=== PATIENT | female | born 1940 | race Caucasian/White ===

== ENCOUNTER 2020-01-12 10:27 | Inpatient (IN) | payer MEDICARE, OTHER ==
[~2020-01-12] VITALS: Ht 165.1 cm; Wt 48.4 kg
[2020-01-12] MEDS ORDERED: DONE5TAB82 PO (10:56)
[2020-01-12] MEDS ORDERED: VITA1CAP25 PO (10:56)
[2020-01-12] MEDS ORDERED: ALPR0.25 PO (10:56)
[2020-01-12 12:53] LABS: HEMATOCRIT 42.5 % (36.0-47.0); HEMOGLOBIN 14.1 g/dl (12.0-15.5); MEAN CORPUSCULAR HEMOGLOBIN 31.4 pg (27.0-33.0); MEAN CORPUSCULAR HGB CONC 33.2 g/dl (32.0-36.5); MEAN CORPUSCULAR VOLUME 94.7 fl (80.0-96.0); PLATELET COUNT, AUTOMATED 207 10^3/uL (150-450); RED BLOOD COUNT 4.49 10^6/uL (4.00-5.40)
[2020-01-12 13:19] LABS: AMPHETAMINES LEVEL URINE NEGATIVE (NEGATIVE); BARBITURATES URINE NEGATIVE (NEGATIVE); BENZODIAZEPINES URINE POSITIVE (NEGATIVE); CANNABINOIDS URINE NEGATIVE (NEGATIVE); COCAINE METABOLITE URINE NEGATIVE (NEGATIVE); METHADONE URINE NEGATIVE (NEGATIVE); OPIATES URINE NEGATIVE (NEGATIVE); PHENCYCLIDINE URINE NEGATIVE (NEGATIVE)
[2020-01-12 13:24] LABS: CPK CREATINE PHOSPHOKINASE 116 U/L (26-192); MB/CK RELATIVE INDEX 1.72 (< OR =4); TROPONIN I < 0.02 NG/ML (< 0.10)
[2020-01-12 13:29] LABS: ACETAMINOPHEN LEVEL < 2.0 UG/ML (10.0-30.0); ALBUMIN 3.8 GM/DL (3.2-5.2); ALT/SGPT 17 U/L (12-78); BILIRUBIN,DIRECT 0.3 MG/DL (0.0-0.2); BILIRUBIN,TOTAL 0.8 MG/DL (0.2-1.0); BLOOD UREA NITROGEN 15 MG/DL (7-18); CARBON DIOXIDE LEVEL 29 MEQ/L (21-32); CHLORIDE LEVEL 110 MEQ/L (98-107); CREATININE FOR GFR 0.69 MG/DL (0.55-1.30); ETHYL ALCOHOL (ETHANOL) < 0.003 % (0.000-0.010); GLOMERULAR FILTRATION RATE > 60.0 (>39); GLUCOSE, FASTING 116 MG/DL (70-100); POTASSIUM SERUM 4.6 MEQ/L (3.5-5.1); SALICYLATE LEVEL < 1.7 MG/DL (5.0-30.0); SODIUM LEVEL 142 MEQ/L (136-145); TOTAL PROTEIN 6.9 GM/DL (6.4-8.2)
--- NOTE | 2020-01-12 15:03 | REP ---
REASON FOR EXAM: Altered mental status. There are no priors for comparison. There is ventricular and particularly sulcal dilatation. There are no extra-axial fluid collections. There is no shift of the midline structures. There is no evidence of acute intracranial hemorrhagic or nonhemorrhagic event. There is no skull fracture. The imaged paranasal sinuses and mastoid air cells are within normal limits. IMPRESSION: Diffuse atrophy. Electronically Signed by Hansel Malagon DO 01/12/2020 04:39 P
[2020-01-12] MEDS ORDERED: PATIENT COMMENT (16:41)
--- NOTE | 2020-01-12 16:44 | ECGEPIP ---
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
[2020-01-12] MEDS ORDERED: ALPRAZolam 0.25 MG TAB PO PRN (17:45)
[2020-01-12 20:30] VITALS: BP 155/87
--- NOTE | 2020-01-12 20:43 | MHCRPDOC ---
[facility] Consultation Consultation DATE OF CONSULTATION: 01/12/20 CONSULTATION REQUESTED BY: Hospitalist consumer safety inspector REASON FOR CONSULTATION: Patient expressed suicidal and homicidal ideation to spouse RELEVANT HISTORY: As per ED report: "Pt was brought the ED by [facility](Cammy Greeen # [id number]) on a 9.41 after she expressed SI and HI(directed towards spouse) due to "God telling her to do it." Pt has no pervious mental health hx, however does have a significant hx of Alzheimer's. Pt is alert, but not oriented x3. She currently denies SI and HI, appears confused during evaluation. Spoke to marivel calixto's daughter(Yue, [phone]) who believes pt is displaying symptoms of Schizophrenia "just like her Brother." Yesterday, pt was aggressive towards whom she lives with, but daughter stays with them frequently. Today, daughter suspects pt is internally pre-occupied, suffering from command AH from "God" telling her to kill & to kill herself. Apparently, pt stated, "God told me he will forgive me." Family is concerned due to pt wandering and her homicidal/suicidal threats and feels she requires a mental health admission and suspects her symptoms are due to her dementia. 01/12/20-[address] Negrete who feels pt is not appropriate for a mental health admission and suspects it is due to her dementia. Social admission was discussed, awaiting family's arrival to sign HINN letter" PAST PSYCHIATRIC HISTORY: Denies PAST MEDICAL HISTORY: "Oh I've had a couple of surgeries, here and there but nothing too serious". Patient has been diagnosed with Alzheimer's FAMILY HISTORY: Mother: . Unknown cause Father: As above Siblings: She says she has brothers and siters and altogetehr they were 7 growing up in the same house but previously she had said they were 5 siblins altogether. Children: She says she has 3 children, she says her daughter is 22 years old and her 2 sons who are older are around 28 yers of age PERSONAL AND SOCIAL HISTORY: The patient was born and raised in [place]. Resides in: [place] Marital Status: M Children: 3, according to her Employment: Unemployed SUBSTANCE ABUSE HISTORY: Smoking: Denies ETOH: Denies Illicit Drugs: Denies LEGAL HISTORY: Denies MENTAL STATUS EXAMINATION: Patient is a 79-year old female, who is alert, cooperative, dressed in hospital clothes. Speech is normal in rate, tone, volume, spontaneous although not really fluent. Language skills fair. Thought processes including: it is linear but not necessarily coherent. Confabulation, she has thought blocking.. Thought content: She denies SI, denies HI, but admits to hear God's voice that tells her that she is wonderful, that she is the best human being that he has ever talked to, that he is very thankful to her because she expressed being thankful to HIm. She says she has seen God and he is light skinned like she is, he is tall and slender and he really cares about human beings. She says she would never kill herself or others, she would never be able to those things. Abstract reasoning, and computation: Impaired Description of associations: mildly loose Description of abnormal or psychotic thoughts: She reports aditory and visual hallucinations, she says God has talked to her twice since she has been at the Emergency Room. Those are not command auditory hallucinations, he is only telli ng her that she is a wonderful person. Judgment: Poor Insight: Poor Orientation to person ( oriented to self), oriented to place but not to date or time Recent and remote memory: She can't recall the 3 words ( orange, ball and [place] 5 minutes later). She could repeat them just after I mentioned them. Attention span and concentration: Fair, she was able to follow the conversation w/o being distracted Language: adequate Fund of knowledge: unable to assess, patient's memory is impaired Mood: "Good" Affect: Congruent with mood, euthymic DIAGNOSIS: 1. Neurocognitive disorder, Alzheimer's PLAN: 1. Patient has a neurological problem, she already has a diagnosis of Alzheimer's disease. She will be admitted to the medical floor as a Social Admission 2. She will be started on Seroquel 12.5 mgs PO BID to help her with the hallucinations that she is experiencing which is part of the dementia. The patient could be stabilized a t the medical floor and continue with Quetiapine ( Seroquel). She will need a Neurology consult and her family will need support in order to understand how this illness presents and affects people. She doesn't fulfill criteria to be [facility] because she i\\doesn't fulfill criteria for schizophrenia or delusional disorder. She doesn't fulfill criteria for Depression with psychosis or bipolar disorder. Vital Signs Vital Signs Date Time Temp Pulse Resp B/P (MAP) Pulse Ox O2 Delivery O2 Flow Rate FiO2 01/12/20 18:46 97.5 96 18 168/79 (108) 99 Room Air Laboratory Data 24H Labs Laboratory Tests 2 01/12/20 12:26: Nucleated Red Blood Cells % (auto) 0.0, Anion Gap 3L, Glomerular Filtration Rate > 60.0, Calcium Level 10.0, Total Bilirubin 0.8, Direct Bilirubin 0.3H, Aspa rtate Amino Transf (AST/SGOT) 19, Alanine Aminotransferase (ALT/SGPT) 17, Alkaline Phosphatase 73, Total Creatine Kinase 116, Creatine Kinase MB 2.0, Creatine Kinase MB Relative Index 1.72, Troponin I < 0.02, Total Protein 6.9, Albumin 3.8, Albumin/Globulin Ratio 1.2, Thyroid Stimulating Hormone (TSH) 1.930, Salicylates Level < 1.7L, Acetaminophen Level < 2.0L, Ethyl Alcohol Level < 0.003 01/12/20 12:29: Urine Color YELLOW, Urine Appearance CLOUDYH, Urine pH 6.0, Urine Specific [place] 1.019, Urine Protein NEGATIVE, Urine Glucose (UA) NEGATIVE, Urine Ketones TRACEH, Urine Blood NEGATIVE, Urine Nitrite NEGATIVE, Urine Bilirubin NEGATIVE, Urine Urobilinogen 2.0H, Urine Leukocyte Esterase 3+H, Urine WBC (Auto) 11H, Urine RBC (Auto) 2, Urine Hyaline Casts (Auto) 0, Urine Bacteria (Auto) NEGATIVE, Urine Squamous Epithelial Cells 1, Urine Amorphous Sediment SMALLH, Urine Mucus (Auto) MODERATE, Urine Sperm (Auto) , Urine Opiates Screen NEGATIVE, Urine Methadone Screen NEGATIVE, Urine Barbiturates Screen NEGATIVE, Urine Phencyclidine Screen NEGATIVE, Urine Amphetamines Screen NEGATIVE, Urine Benzodiazepines Screen POSITIVEH, Urine Cocaine Metabolite Screen NEGATIVE, Urine Cannabinoids Screen NEGATIVE Home Medications Current Medications Current Medications Medications (Trade) Dose Ordered Sig/Joanna Route PRN Reason Start Time Stop Time Status Last Admin Dose Admin Alprazolam (Xanax) 0.25 mg BID PRN PO ANXIETY/AGITATION 01/12/20 17:45 Donepezil HCl (AriCEPT) 5 mg DAILY PO 01/13/20 09:00 Home Med (Med Rec Complete!) ASDIRECTED XX 01/12/20 16:45 01/12/20 16:43 DC Scheduled Alprazolam (Alprazolam) 0.25 Mg Tablet, 0.25 MG PO BID, (Reported) Cholecalciferol (Vitamin D3) (Vitamin D3) 1,250 Mcg Capsule, 1,250 MCG PO QWEEK, (Reported) Donepezil HCl (Donepezil HCl) 5 Mg Tablet, 5 MG PO DAILY, (Reported) Miscellaneous Medications [Patient Comment] , (Reported) UNABLE TO VERIFY WITH PATIENT, MED LIST OBTAINED FROM PHARMACY Allergies Coded Allergies: No Known Allergies (Unverified , 01/12/20) STEFANI NEGRETE MD Jan 12, 2020 20:43
[2020-01-12] MEDS: QUEtiapine FUMARATE 12.5 MG HALF-TAB PO SCH (21:21)
--- NOTE | 2020-01-13 00:35 | HPEPDOC ---
[facility] Medical History & Physical Date of Admission Jan 12, 2020 Date of Service: Jan 12, 2020 Other Provider Doesn't have local PCP Attending Physician: MONTY RUSH DO History and Physical CHIEF COMPLAINT: Brought into the emergency department by her family due to talking about suicidal and homicidal actions HISTORY OF PRESENT ILLNESS: Ms. Jones is a 79-year-old female who suffers from dementia who apparently was just moved up here with her from [place] to live with their daughter approximately 3 weeks ago. Apparently she has been having bizarre delusions that she has been speaking to God, or rather than God has been speaking to her, and instructed her that she should take a knife and kill both her and herself, but because God was pleased with her, he would forgive her for her actions. The family, not knowing what to do brought her to the emergency department for further evaluation. CODE STATUS: Full code PAST MEDICAL HISTORY: GERD Fibromyalgia Low back pain In a note from 2002 it states that she has a past history of major depression, although at that time she was not on any anti-depressant medications. She apparently does not have any other psychiatric history. PAST SURGICAL HISTORY: Knee surgery Left arm surgery Appendectomy SOCIAL HISTORY: Just moved up from [place] a few weeks ago with her to live with their daughter. FAMILY HISTORY: No family history of psychiatric disease REVIEW OF SYSTEMS: It is unclear to me as to whether or not she can accurately identify any recent symptoms she may be having. Nevertheless, her review of systems was negative. She is feeling fine. She does not know where she is, nor why she is here. PHYSICAL EXAMINATION: General: Awake, alert, she does not appear to be in any acute distress at this time. HEENT: Head normocephalic atraumatic, conjunctiva are pink, sclera are nonicteric, buccal mucosa is pink and moist with no lesions in the oropharynx. Hearing is grossly intact to conversation. Respiratory: Clear to auscultation bilaterally with no wheezes, rales, or rhonchi. Cardiovascular: Regular rate and rhythm, with no rubs, gallops, or murmur. Abdomen: Soft, nontender, nondistended, no hepatosplenomegaly appreciated. Bowel sounds present. Extremities: 2+ pulses in the radial bilaterally. No evidence of clubbing or cyanosis. ASSESSMENT: Bizarre delusions, Perhaps command delusions Dementia Anxiety PLAN: [facility] Psychiatric consult has been requested. She is on Ativan twice a day, although this does not seem like a good idea, will await recommendations from psych regarding medications. Sitter has been ordered. A PFS consult order placed, as she will need a new local PCP, and likely will need to discuss disposition with family. Vital Signs Vital Signs Date Time Temp Pulse Resp B/P (MAP) Pulse Ox O2 Delivery O2 Flow Rate FiO2 01/12/20 18:46 97.5 96 18 168/79 (108) 99 Room Air Laboratory Data Labs 24H Laboratory Tests 2 01/12/20 12:26: Nucleated Red Blood Cells % (auto) 0.0, Anion Gap 3L, Glomerular Filtration Rate > 60.0, Calcium Level 10.0, Total Bilirubin 0.8, Direct Bilirubin 0.3H, Aspartate Amino Transf (AST/SGOT) 19, Alanine Aminotransferase (ALT/SGPT) 17, Alkaline Phosphatase 73, Total Creatine Kinase 116, Creatine Kinase MB 2.0, Creatine Kinase MB Relative Index 1.72, Troponin I < 0.02, Total Protein 6.9, Albumin 3.8, Albumin/Globulin Ratio 1.2, Thyroid Stimulating Hormone (TSH) 1.930, Salicylates Level < 1.7L, Acetaminophen Level < 2.0L, Ethyl Alcohol Level < 0.003 01/12/20 12:29: Urine Color YELLOW, Urine Appearance CLOUDYH, Urine pH 6.0, Urine Specific [place] 1.019, Urine Protein NEGATIVE, Urine Glucose (UA) NEGATIVE, Urine Ketones TRACEH, Urine Blood NEGATIVE, Urine Nitrite NEGATIVE, Urine Bilirubin NEGATIVE, Urine Urobilinogen 2.0H, Urine Leukocyte Esterase 3+H, Urine WBC (Auto) 11H, Urine RBC (Auto) 2, Urine Hyaline Casts (Auto) 0, Urine Bacteria (Auto) NEGATIVE, Urine Squamous Epithelial Cells 1, Urine Amorphous Sediment SMALLH, Urine Mucus (Auto) MODERATE, Urine Sperm (Auto) , Urine Opiates Screen NEGATIVE, Urine Methadone Screen NEGATIVE, Urine Barbiturates Screen NEGATIVE, Urine Phencyclidine Screen NEGATIVE, Urine Amphetamines Screen NEGATIVE, Urine B enzodiazepines Screen POSITIVEH, Urine Cocaine Metabolite Screen NEGATIVE, Urine Cannabinoids Screen NEGATIVE CBC/BMP Laboratory Tests 01/12/20 12:26 Microbiology Microbiology 01/12/20 Urine Culture, Received Pending Home Medications Scheduled Alprazolam (Alprazolam) 0.25 Mg Tablet, 0.25 MG PO BID Cholecalciferol (Vitamin D3) (Vitamin D3) 1,250 Mcg Capsule, 1,250 MCG PO QWEEK Donepezil HCl (Donepezil HCl) 5 Mg Tablet, 5 MG PO DAILY Miscellaneous Medications [Patient Comment] UNABLE TO VERIFY WITH PATIENT, MED LIST OBTAINED FROM PHARMACY Allergies Coded Allergies: No Known Allergies (Unverified , 01/12/20) A-FIB/CHADSVASC A-FIB History Current/History of A-Fib/PAF?: No Current PO Anticoag Therapy: MONTY Brannon DO Jan 13, 2020 00:35
[2020-01-13 06:00] VITALS: BP 108/58
[2020-01-13] MEDS: DONEPEZIL 5 MG TAB PO SCH (08:47)
[2020-01-13] MEDS: QUEtiapine FUMARATE 12.5 MG HALF-TAB PO SCH ×3 (12:35→21:16)
--- NOTE | 2020-01-13 13:48 | IPNPDOC ---
Subjective Date Seen The patient was seen on 01/13/20. Subjective Chief Complaint/HPI Pt is a 79 yo female with PMH noted for Alzheimer's disease who moved here 3 wks ago with her from [place] to live with their daughter who was brought to [facility] by [facility](Cammy Greene # [id number]) as pt was having hallucination that God was telling her to kill both her and herself. It was noted that pt has been having bizarre delusion/hallucinations that she has been instructed by God that she should take a knife and kill both her and herself, but because God was pleased with her, he would forgive her for her actions. It was noted that pt has no prior mental hx but has significant hx of Alzheimer's. Upon admission pt was noted to be alert but not orientedX3; appeared confused. denies SI and HI. It was noted that psychiatrist spoke to pt's daughter(Yue, [phone]) who believes pt is displaying symptoms of Schizophrenia "just like her Brother." Family is concerned feels pt required a mental health admission and suspects her symptoms are due to her dementia. It was noted that Dr. Son felt that pt is not appropriate for a mental health admission and suspects it is due to her dementia thus social admission was discussed Patient was examined in her room with sitter in her room. It was noted that earlier she was having some hallucination that someone is helping her to get ready to pack and no homicidal ideation/behaviors or suicidal ideation/behaviors. Pt denies any chest pain, fever, chills, nausea, vomiting, or abdominal pain. She is A&OX3, able to carry conversation. Denies having hallucination, no homicidal ideation/suicidal ideation. Pt would like to know what she is here, when explaining the thought is she has dementia, pt reported she does not think she has dementia in a calm voice Constitutional: Denies: Chills, Fever Pulmonary: Denies: Dyspnea Cardiovascular: Denies: Chest Pain, Palpitations Gastrointestinal: Denies: Nausea, Vomiting, Abdominal Pain Objective Physical Examination General Exam: Positive: Alert, Cooperative, No Acute Distress ENT Exam: Positive: Atraumatic, Mucous membr. moist/pink Chest Exam: Positive: Clear to auscultation, Normal air movement; Negative: Rales, Rhonchi, Wheezing Heart Exam: Positive: Rate Normal, Regular Rhythm, Normal S1, Normal S2; Negative: Murmurs Abdomen Exam: Positive: Normal bowel sounds, Soft; Negative: Tenderness Extremity Exam: Negative: Edema, Swelling Neuro Exam: Positive: Normal Speech (slowed), Normal Tone, Cranial Nerves 3-12 NL Psych Exam: Positive: Mood NL (calm), Memory Intact (grossly), Other (able to carry conversation, flat affect, anhedonia); Negative: Anxiety Assessment /Plan Assessment 1. Hallucination 2/2 dementia, improved. Hx of dementia. Cont current med Quetiapine initiated by psych during this hospitalization. Pt is noted to not fulfill criteria for schizophrenia , or delusional disorder, depression with psychosis, or bipolar disorder. Suicidal precaution. Cont sitter 2. Neurocognitive disorder, Alzheimer's. Cont home med Donepezil. Hold home med Ativan DVT prophylaxis: lovenox GI prophylaxis: Not indicated DISPO: hallucination with HI and SI eval by psych thought to be d/t dementia. On Donepezil, mood currently stable. Plan to discharge home w/ service when medically stable Plan/VTE VTE Prophylaxis Ordered?: Yes VS, I&O, 24H, Fishbone Vital Signs/I&O Vital Signs Date Time Temp Pulse Resp B/P (MAP) Pulse Ox O2 Delivery O2 Flow Rate FiO2 01/13/20 06:00 97.8 72 17 108/58 (75) 96 Room Air I&O- Last 24 Hours up to 6 AM 01/13/20 06:00 Intake Total 300 ml Output Total 700 ml Balance -400 ml Laboratory Data Microbiology Microbiology 01/12/20 Urine Culture - Final, Complete GME ATTESTATION I have personally evaluated and examined the patient. Discussed with resident/student regarding plan of care and agree with the above assessment and plan. LANCE THEODORE DO Jan 13, 2020 13:48 DARRIUS TERESA MD Jan 14, 2020 18:20
[2020-01-13 14:00] VITALS: BP 144/66
[2020-01-13 22:00] VITALS: BP 154/76
[2020-01-14 06:00] VITALS: BP 143/69
[2020-01-14 06:00] LABS: HEMATOCRIT 36.8 % (36.0-47.0); HEMOGLOBIN 12.3 g/dl (12.0-15.5); MEAN CORPUSCULAR HEMOGLOBIN 30.8 pg (27.0-33.0); MEAN CORPUSCULAR HGB CONC 33.4 g/dl (32.0-36.5); MEAN CORPUSCULAR VOLUME 92.2 fl (80.0-96.0); PLATELET COUNT, AUTOMATED 197 10^3/uL (150-450); RED BLOOD COUNT 3.99 10^6/uL (4.00-5.40); WHITE BLOOD COUNT 5.5 10^3/uL (4.0-10.0)
[2020-01-14 06:30] LABS: ALBUMIN 3.2 GM/DL (3.2-5.2); ALT/SGPT 14 U/L (12-78); BILIRUBIN,TOTAL 0.9 MG/DL (0.2-1.0); BLOOD UREA NITROGEN 15 MG/DL (7-18); CALCIUM LEVEL 9.2 MG/DL (8.8-10.2); CARBON DIOXIDE LEVEL 27 MEQ/L (21-32); CHLORIDE LEVEL 111 MEQ/L (98-107); CREATININE FOR GFR 0.66 MG/DL (0.55-1.30); GLOMERULAR FILTRATION RATE > 60.0 (>39); GLUCOSE, FASTING 87 MG/DL (70-100); POTASSIUM SERUM 3.7 MEQ/L (3.5-5.1); SODIUM LEVEL 145 MEQ/L (136-145); TOTAL PROTEIN 5.7 GM/DL (6.4-8.2)
[2020-01-14] MEDS: DONEPEZIL 5 MG TAB PO SCH (09:46)
[2020-01-14] MEDS: ENOXAPARIN 40MG/0.4ML SYRINGE (J1650 PER 10MG) SC SCH (09:46)
[2020-01-14] MEDS: QUEtiapine FUMARATE 12.5 MG HALF-TAB PO SCH ×2 (09:46→20:11)
[2020-01-14 14:00] VITALS: BP 138/69
--- NOTE | 2020-01-14 17:23 | IPNPDOC ---
Subjective Date Seen The patient was seen on 01/14/20. Subjective Chief Complaint/HPI It was noted that patient was having hallucinations/delusions that it was the 194s and she was still single. Patient is examined at bedside, sitter at bedside reported no hallucinations or abnormal behaviors. She denies any chest pain, palpitation, nausea, vomiting, fever, chills. She is able to answer name but is unable to answer the year and place correctly. General: Denies: Chills Constitutional: Denies: Chills, Fever Pulmonary: Denies: Dyspnea Cardiovascular: Denies: Chest Pain, Palpitations Gastrointestinal: Denies: Nausea, Vomiting, Abdominal Pain Objective Physical Examination General Exam: Positive: Alert, Cooperative, No Acute Distress ENT Exam: Positive: Atraumatic, Mucous membr. moist/pink Chest Exam: Positive: Clear to auscultation, Normal air movement; Negative: Rales, Rhonchi, Wheezing Heart Exam: Positive: Rate Normal, Regular Rhythm, Normal S1, Normal S2; Negative: Murmurs Abdomen Exam: Positive: Normal bowel sounds, Soft; Negative: Tenderness Extremity Exam: Negative: Edema, Swelling Neuro Exam: Positive: Normal Tone, Cranial Nerves 3-12 NL, Other (slowed speech) Psych Exam: Positive: Mood NL (calm), Other (able to carry conversation, flat affect. A&O to name only); Negative: Anxiety, Memory Intact, Oriented x 3 Assessment /Plan Assessment 1. Neurocognitive disorder, Alzheimer's. Admitted with hallucination with suicidal and homicidal ideations. Cont home med Donepezil. Hold home med Ativan. It was noted that pt had some hallucination thinking that she was in [id number], hallucination likely 2/2 dementia. Hx of dementia. Cont current med Quetiapine initiated by psych during this hospitalization. Pt is noted to not fulfill criteria for schizophrenia , or delusional disorder, depression with psychosis, or bipolar disorder. Suicidal precaution. Cont sitter. Pending placement. Suicidal precaution. 2. Hallucination with suicidal ideation and homicidal ideation. Pt thought God was talking to her telling her to kill family but God and herself but God will forgive her. No current hallucination noted. Suicidal precaution. DVT prophylaxis: lovenox GI prophylaxis: not indicated DISPO: Hallucination with suicidal ideation and homicidal ideation likely 2/2 dementia started on Quetiapine; cont home Donepezil and hold home med Ativan. Mood currently stable with sitter and suicidal precaution. Pending placement Plan/VTE VTE Prophylaxis Ordered?: Yes VS, I&O, 24H, Fishbone Vital Signs/I&O Vital Signs Date Time Temp Pulse Resp B/P (MAP) Pulse Ox O2 Delivery O2 Flow Rate FiO2 01/14/20 14:00 98.6 92 18 138/69 (92) 99 Room Air I&O- Last 24 Hours up to 6 AM 01/14/20 06:00 Intake Total 680 ml Output Total 400 ml Balance 280 ml Laboratory Data 24H LABS Laboratory Tests 2 01/14/20 05:29: Nucleated Red Blood Cells % (auto) 0.0, Anion Gap 7L, Glomerular Filtration Rate > 60.0, Calcium Level 9.2, Total Bilirubin 0.9, Aspartate Amino Transf (AST/SGOT) 18, Alanine Aminotransferase (ALT/SGPT) 14, Alkaline Phosphatase 64, Total Protein 5.7L, Albumin 3.2, Albumin/Globulin Ratio 1.3 CBC/BMP Laboratory Tests 01/14/20 05:29 Microbiology Microbiology 01/12/20 Urine Culture - Final, Complete GME ATTESTATION I have personally evaluated and examined the patient. Discussed with reside nt/student regarding plan of care and agree with the above assessment and plan. LANCE THEODORE DO Jan 14, 2020 17:23 DARRIUS TERESA MD Jan 23, 2020 08:32
[2020-01-14 21:00] VITALS: BP_SYST 122; BP_SYST 148; BP_DIAS 74; BP_DIAS 75
[2020-01-14 22:00] VITALS: BP 148/75
[2020-01-15 06:00] VITALS: BP 129/62
[2020-01-15] MEDS ORDERED: ATORVASTATIN 20 MG TAB PO SCH (09:00)
[2020-01-15] MEDS: DONEPEZIL 5 MG TAB PO SCH (10:19)
[2020-01-15] MEDS: ENOXAPARIN 40MG/0.4ML SYRINGE (J1650 PER 10MG) SC SCH (10:20)
[2020-01-15] MEDS: QUEtiapine FUMARATE 12.5 MG HALF-TAB PO SCH (10:20)
[2020-01-15] MEDS ORDERED: VANICREAM MOISTURIZING SKIN CREAM 113GM TUBE TOP PRN (10:30)
[2020-01-15 14:00] VITALS: BP 132/76
--- NOTE | 2020-01-15 17:28 | IPNPDOC ---
Subjective Date Seen The patient was seen on 01/15/20. Subjective Chief Complaint/HPI Patient is examined in the exam room with sitter in room. It was noted that patient was having hallucinations thinking that she was making food for her . Pt reported that she does not have any visual or auditory hallucinat ion, denies any fever, chills, chest pain, palpitation, suicidal ideation, or homicidal ideation. Pt is A&O to name and place. Later it was reported that pt was mildly agitated and said that she would like to leave the hospital. Pt reported that she has been walking well General: Denies: Chills Constitutional: Denies: Chills, Fever Pulmonary: Denies: Dyspnea Cardiovascular: Denies: Chest Pain, Palpitations Gastrointestinal: Denies: Abdominal Pain Neurological: Reports: Other Symptoms (hallucination and delusions) Psych: Reports: Memory Issues; Denies: Mood Normal Objective Physical Examination General Exam: Positive: Alert, Cooperative, No Acute Distress ENT Exam: Positive: Atraumatic, Mucous membr. moist/pink Chest Exam: Positive: Clear to auscultation, Normal air movement; Negative: Rales, Rhonchi, Wheezing Heart Exam: Positive: Rate Normal, Regular Rhythm, Normal S1, Normal S2; Negative: Murmurs Abdomen Exam: Positive: Normal bowel sounds, Soft; Negative: Tenderness Extremity Exam: Negative: Edema, Swelling Neuro Exam: Positive: Normal Speech (slowed), Normal Tone Psych Exam: Positive: Mood NL (calm at time of examination), Other (able to carry conversation, flat affect, A&O to name and place); Negative: Mental status NL, Anxiety, Memory Intact Assessment /Plan Assessment 1. Neurocognitive disorder, Alzheimer's. Admitted with hallucination with suicidal and homicidal ideations. Cont home med Donepezil. Hold home med Ativan. Hallucination likely 2/2 dementia. Hx of dementia.Pt is noted to not fulfill criteria for schizophrenia , or delusional disorder, depression with psychosis, or bipolar disorder per psych. Suicidal precaution. Cont sitter. Pending placement. Suicidal precaution. Pt continues to have hallucination as well as delusion. Increase Quetiapine dose from 12.5mg BID to 12.5mg QAM and 25mg QPM as it was noted pt was mildly agitated and reported that she is going to leave. Pending placement 2. Hallucination with suicidal ideation and homicidal ideation. Pt thought God was talking to her telling her to kill family but God and herself but God will forgive her. No current hallucination noted. Suicidal precaution. DVT prophylaxis: lovenox GI prophylaxis: not indicated DISPO: Hallucination with suicidal ideation and homicidal ideation likely 2/2 dementia; increase Quetiapine dose d/t mild agitation; cont home Donepezil and hold home med Ativan. Sitter and suicidal precaution. Pending placement. Plan/VTE VTE Prophylaxis Ordered?: Yes VS, I&O, 24H, Fishbone Vital Signs/I&O Vital Signs Date Time Temp Pulse Resp B/P (MAP) Pulse Ox O2 Delivery O2 Flow Rate FiO2 01/15/20 14:00 98.5 90 20 132/76 (94) 98 Room Air I&O- Last 24 Hours up to 6 AM 01/15/20 06:00 Intake Total 720 ml Output Total 0 ml Balance 720 ml Laboratory Data Microbiology Microbiology 01/12/20 Urine Culture - Final, Complete GME ATTESTATION I have personally evaluated and examined the patient. Discussed with resident/student regarding plan of care and agree with the above assessment and plan. LANCE THEODORE DO Jan 15, 2020 17:28 DARRIUS TERESA MD Jan 23, 2020 08:37
[2020-01-15] MEDS ORDERED: LORazepam 2 MG/ML VIAL IM STA (17:44)
[2020-01-15] MEDS ORDERED: LORazepam 2 MG/ML VIAL IM PRN (18:00)
[2020-01-15] MEDS: QUEtiapine FUMARATE 25 MG TAB PO SCH (20:05)
[2020-01-15 22:00] VITALS: BP 132/61
[2020-01-16 06:00] VITALS: BP 118/72
[2020-01-16] MEDS: ENOXAPARIN 40MG/0.4ML SYRINGE (J1650 PER 10MG) SC SCH (09:00)
[2020-01-16] MEDS: DONEPEZIL 5 MG TAB PO SCH (09:00)
[2020-01-16] MEDS: QUEtiapine FUMARATE 12.5 MG HALF-TAB PO SCH (09:00)
--- NOTE | 2020-01-16 10:58 | IPNPDOC ---
Subjective Date Seen The patient was seen on 01/16/20. Subjective Chief Complaint/HPI It was noted that patient was agitated yesterday afternoon trying to escape and ran to the elevator. She was scratching staff and it took 4 staff to put her back on the wheelchair. Ativan PRN was ordered but has not been given/needed as patient's mental status changes rapidly. Patient is having hallucination that her father and mother are waiting for her outside of the hospital, then stated her father is in the hospital. She initially denies any homicidal ideation or suicidal ideation, but 2 mins after stated that she wanted to kill her father because he took her here. She denies any chest pain, palpitation, nausea, vomiting, abdominal pain, dyspnea, stating she is upset because she needs to stay in the hospital. General: Denies: Chills Constitutional: Denies: Chills, Fever Pulmonary: Denies: Dyspnea Cardiovascular: Denies: Chest Pain, Palpitations Gastrointestinal: Denies: Nausea, Vomiting, Abdominal Pain Psych: Reports: Memory Issues, Anger, Thoughts of Harming Other, Other Psych (agitation, hallucination, and delusion); Denies: Mood Normal Objective Physical Examination General Exam: Positive: Alert, No Acute Distress; Negative: Cooperative ENT Exam: Positive: Atraumatic, Mucous membr. moist/pink Chest Exam: Positive: Clear to auscultation, Normal air movement; Negative: Rales, Rhonchi, Wheezing Heart Exam: Positive: Rate Normal, Regular Rhythm, Normal S1, Normal S2; Negative: Murmurs Abdomen Exam: Positive: Normal bowel sounds, Soft; Negative: Tenderness Extremity Exam: Negative: Edema, Swelling Neuro Exam: Positive: Normal Tone Psych Exam: Positive: Other (able to carry conversation, upset, visual hallucination and delusions); Negative: Mental status NL, Mood NL, Memory Intact Assessment /Plan Assessment 1. Neurocognitive disorder, Alzheimer's. Admitted with hallucination with suicidal and homicidal ideations. Cont home med Donepezil. Hold home med Ativan. Hallucination likely 2/2 dementia. Hx of dementia.Pt is noted to not fulfill criteria for schizophrenia , or delusional disorder, depression with psychosis, or bipolar disorder per psych. Suicidal precaution. Cont sitter. Pending placement. Suicidal precaution. Pt continues to have hallucination as well as delusion. Increase Quetiapine dose from 12.5mg BID to 12.5mg QAM and 25mg QPM as it was noted pt was mildly agitated and reported that she is going to leave. Pt had ativan ordered PRN but has not received any dose. Change Ativan PRN agitation to haloperidol. Pending placement, change to ALC status 2. Hallucination with suicidal ideation and homicidal ideation. Pt thought God was talking to her telling her to kill family but God and herself but God will forgive her. No current hallucination noted.Today reported that she wants to kill his father. Suicidal precaution. DVT prophylaxis: lovenox GI prophylaxis: not indicated DISPO: Hallucination with suicidal ideation and homicidal ideation likely 2/2 dementia; increase Quetiapine dose d/t mild agitation; cont home Donepezil. Haloperidol PRN Sitter and suicidal precaution. Pending placement. Change to ALC status Plan/VTE VTE Prophylaxis Ordered?: Yes VS, I&O, 24H, Fishbone Vital Signs/I&O Vital Signs Date Time Temp Pulse Resp B/P (MAP) Pulse Ox O2 Delivery O2 Flow Rate FiO2 01/16/20 06:00 98.2 76 19 118/72 (87) 92 Room Air I&O- Last 24 Hours up to 6 AM 01/16/20 06:00 Intake Total 570 ml Output Total 300 ml Balance 270 ml Laboratory Data Microbiology Microbiology 01/12/20 Urine Culture - Final, Complete GME ATTESTATION GME ATTESTATION My faculty preceptor for this patient encounter was physically present during th e encounter and was fully available. All aspects of the patient interview, examination, medical decision making process, and medical care plan development were reviewed and approved by the faculty preceptor. The faculty preceptor is aware and concurs with the plan as stated in the body of this note and will attest to such by his/her cosignature. ATTENDING NOTE I saw and evaluated the patient. I agree with the findings and the plan of care as documented in the resident's note. LANCE THEODORE DO Jan 16, 2020 10:58 DARRIUS TERESA MD Feb 02, 2020 07:56
[2020-01-16] MEDS: QUEtiapine FUMARATE 25 MG TAB PO SCH (20:47)
[2020-01-17 06:00] VITALS: BP 149/73
[2020-01-17] MEDS: ENOXAPARIN 40MG/0.4ML SYRINGE (J1650 PER 10MG) SC SCH (09:00)
[2020-01-17] MEDS: QUEtiapine FUMARATE 12.5 MG HALF-TAB PO SCH (09:36)
[2020-01-17] MEDS: DONEPEZIL 5 MG TAB PO SCH (09:36)
[2020-01-17 14:00] VITALS: BP 123/69
[2020-01-17] MEDS: QUEtiapine FUMARATE 25 MG TAB PO SCH (21:00)
[2020-01-18 06:00] VITALS: BP 114/58
[2020-01-18] MEDS: ENOXAPARIN 40MG/0.4ML SYRINGE (J1650 PER 10MG) SC SCH (08:38)
[2020-01-18] MEDS: QUEtiapine FUMARATE 12.5 MG HALF-TAB PO SCH (08:38)
[2020-01-18] MEDS: DONEPEZIL 5 MG TAB PO SCH (08:38)
[2020-01-18] MEDS: LORazepam 2 MG/ML VIAL IM PRN (13:56)
[2020-01-18] MEDS: QUEtiapine FUMARATE 25 MG TAB PO SCH (21:00)
[2020-01-19 06:00] VITALS: BP 123/68
[2020-01-19] MEDS: QUEtiapine FUMARATE 25 MG TAB PO SCH ×2 (08:08→21:00)
[2020-01-19] MEDS: ENOXAPARIN 40MG/0.4ML SYRINGE (J1650 PER 10MG) SC SCH (08:08)
[2020-01-19] MEDS: DONEPEZIL 5 MG TAB PO SCH (08:08)
--- NOTE | 2020-01-19 11:17 | IPN ---
DATE: 01/18/2020 She is a 79-year-old female whose family brought her in for worsening dementia. She has been getting very aggressive at times. She is waiting for a lock-in unit halfway placement. She was started on Seroquel. This morning, she became very agitated and aggressive. Attempts were made to calm her. Ativan IM was ordered. When the nurses went to give it, she had calmed down and was pleasant and cooperative and the medication was not given. She is currently on Seroquel 12.5 in the morning and 25 at night. Will increase the morning dose to 25 mg to see if this helps the morning daytime behavior. OBJECTIVE: Blood pressure 114/58, pulse 76, respirations 20, temperature 98, oxygen saturation 98% on room air. The patient is alert. Pupils equal and react to light. No facial asymmetry. Pharynx, tongue and gums pink and moist. Tongue is midline. Neck is supple, without lymphadenopathy. Chest clear to auscultation. Without wheeze or retraction. Heart is regular. Abdomen benign. Bowel sounds positive. /Rectal: Not done. Extremities: No cyanosis, clubbing or edema. Peripheral pulses equal and palpable bilaterally. Skin is warm and dry. The patient is pleasant, allowed me to examine her and answered a few questions yes and no appropriately. IMPRESSION AND PLAN: 1. Neurocognitive disorder, Alzheimer's. Increase Seroquel to 25 by mouth twice a day. 2. Deep vein thrombosis (DVT) prophylaxis. Continue Lovenox. 3. Continue ALC status and placement.
[2020-01-19] MEDS ORDERED: LORazepam 2 MG/ML VIAL As Ordered ONE (19:44)
[2020-01-19] MEDS: LORazepam 2 MG/ML VIAL IM PRN (19:48)
[2020-01-19] MEDS ORDERED: HALOPERIDOL 5MG/ML VIAL (J1630 PER 1) IM PRN (21:45)
[2020-01-20 06:00] VITALS: BP 137/69
[2020-01-20] MEDS: ENOXAPARIN 40MG/0.4ML SYRINGE (J1650 PER 10MG) SC SCH (07:56)
[2020-01-20] MEDS: QUEtiapine FUMARATE 25 MG TAB PO SCH ×2 (07:56→20:00)
[2020-01-21 06:00] VITALS: BP 131/71
[2020-01-21] MEDS: QUEtiapine FUMARATE 25 MG TAB PO SCH ×3 (09:52→23:50)
[2020-01-21] MEDS: ENOXAPARIN 40MG/0.4ML SYRINGE (J1650 PER 10MG) SC SCH (09:52)
[2020-01-22 06:00] VITALS: BP 123/62
--- NOTE | 2020-01-22 08:37 | ECGEPIP ---
[facility] Test Date: 2020-01-20 Pat Name: TERRY CHILDERS Department: Room: [place] [address] Gender: Female Web Search Evaluator: DEBBIE : 1940 Requested By: GITA ROSS Order Number: [id number] Reading MD: Michelle Saldana Measurements Intervals [place] Rate: 75 P: 63 TX: 142 QRS: -39 QRSD: 86 T: 61 QT: 415 QTc: 464 Interpretive Statements SINUS RHYTHM MARKED LEFT AXIS DEVIATION NO CHANGE COMPARED TO 01/12/20 Electronically Signed on 01-22-2020 8:37:17 EDT by Michelle Saldana
[2020-01-22] MEDS: QUEtiapine FUMARATE 25 MG TAB PO SCH ×2 (08:57→20:16)
[2020-01-22] MEDS: ENOXAPARIN 40MG/0.4ML SYRINGE (J1650 PER 10MG) SC SCH (08:57)
--- NOTE | 2020-01-22 13:43 | IPNPDOC ---
Text Note Date of Service The patient was seen on 01/22/20. NOTE Pt seen and examined. No overnight events Physical examination The patient is alert. Pupils equal and react to light. No facial asymmetry. Pharynx, tongue and gums pink and moist. Tongue is midline. Neck is supple, without lymphadenopathy. Chest clear to auscultation. Without wheeze or retraction. Heart is regular. Abdomen benign. Bowel sounds positive. /Rectal: Not done. Extremities: No cyanosis, clubbing or edema. Peripheral pulses equal and palpable bilaterally. Skin is warm and dry. Vitals reviewed Labs reviewed Assessment and plan 1. Neurocognitive disorder. Admitted with hallucination with suicidal and homicidal ideations. Cont home med Donepezil. Hold home med Ativan. Suicidal precaution. Cont sitter. Pt continues to have hallucination as well as delusion. Increased Quetiapine dose from 12.5mg BID to 12.5mg QAM and 25mg QPM . PRN haloperidol. Pending placement. DVT prophylaxis: lovenox DISPO: Pending placement. ALC status VS,Fishbone, I+O VS, Fishbone, I+O Vital Signs Date Time Temp Pulse Resp B/P (MAP) Pulse Ox O2 Delivery O2 Flow Rate FiO2 01/22/20 06:00 97.4 71 18 123/62 (82) 97 Room Air I&O- Last 24 Hours up to 6 AM 01/22/20 06:00 Intake Total 490 ml Output Total 0 ml Balance 490 ml CARMELINA SWIFT MD Jan 22, 2020 13:43
[2020-01-23 06:00] VITALS: BP 128/60
[2020-01-23] MEDS: ENOXAPARIN 40MG/0.4ML SYRINGE (J1650 PER 10MG) SC SCH (08:06)
[2020-01-23] MEDS: QUEtiapine FUMARATE 25 MG TAB PO SCH ×2 (08:06→21:00)
--- NOTE | 2020-01-23 13:00 | IPNPDOC ---
Text Note Date of Service The patient was seen on 01/23/20. NOTE Pt seen and examined. No overnight events Physical examination The patient is alert. Pupils equal and react to light. No facial asymmetry. Pharynx, tongue and gums pink and moist. Tongue is midline. Neck is supple, without lymphadenopathy. Chest clear to auscultation. Without wheeze or retraction. Heart is regular. Abdomen benign. Bowel sounds positive. /Rectal: Not done. Extremities: No cyanosis, clubbing or edema. Peripheral pulses equal and palpable bilaterally. Skin is warm and dry. Vitals reviewed Labs reviewed Assessment and plan 1. Neurocognitive disorder. Admitted with hallucination with suicidal and homicidal ideations, which she no longer has Currently she is on one-to-one sitter because of behavioral issues. Cont home med Donepezil. Hold home med Ativan. Suicidal precaution. Cont sitter. Pt continues to have hallucination as well as delusion. Increased Quetia pine dose from 12.5mg BID to 12.5mg QAM and 25mg QPM . PRN haloperidol. Pending placement. DVT prophylaxis: lovenox DISPO: Pending placement. ALC status VS,Fishbone, I+O VS, Fishbone, I+O Vital Signs Date Time Temp Pulse Resp B/P (MAP) Pulse Ox O2 Delivery O2 Flow Rate FiO2 01/23/20 06:00 97.3 63 17 128/60 (82) 99 Room Air I&O- Last 24 Hours up to 6 AM 01/23/20 06:00 Intake Total 720 ml Output Total 0 ml Balance 720 ml CARMELINA SWIFT MD Jan 23, 2020 13:00
[2020-01-23] MEDS: LORazepam 2 MG/ML VIAL IM PRN (14:40)
[2020-01-24 06:00] VITALS: BP 124/74
[2020-01-24] MEDS: ENOXAPARIN 40MG/0.4ML SYRINGE (J1650 PER 10MG) SC SCH (08:33)
[2020-01-24] MEDS: QUEtiapine FUMARATE 25 MG TAB PO SCH ×2 (08:33→20:16)
[2020-01-24] MEDS ORDERED: LORazepam 2 MG/ML VIAL As Ordered ONE (09:37)
[2020-01-24] MEDS: LORazepam 2 MG/ML VIAL IM PRN (09:43)
[2020-01-25] MEDS: QUEtiapine FUMARATE 25 MG TAB PO SCH ×2 (02:17→07:23)
[2020-01-25 06:00] VITALS: BP 116/72
[2020-01-25] MEDS: ENOXAPARIN 40MG/0.4ML SYRINGE (J1650 PER 10MG) SC SCH (07:24)
[2020-01-25] MEDS ORDERED: LORazepam 2 MG/ML VIAL As Ordered ONE (15:27)
[2020-01-25] MEDS: LORazepam 2 MG/ML VIAL IM PRN (15:34)
[2020-01-26 06:00] VITALS: BP 129/75
[2020-01-26] MEDS: ENOXAPARIN 40MG/0.4ML SYRINGE (J1650 PER 10MG) SC SCH (08:00)
[2020-01-26] MEDS: QUEtiapine FUMARATE 25 MG TAB PO SCH ×2 (08:00→20:13)
[2020-01-27 06:00] VITALS: BP 129/74
[2020-01-27] MEDS: ENOXAPARIN 40MG/0.4ML SYRINGE (J1650 PER 10MG) SC SCH (08:42)
[2020-01-27] MEDS: QUEtiapine FUMARATE 25 MG TAB PO SCH ×2 (08:42→20:20)
[2020-01-28 06:00] VITALS: BP 122/63
[2020-01-28] MEDS ORDERED: LORazepam 2 MG/ML VIAL As Ordered ONE ×2 (08:08→14:17)
[2020-01-28] MEDS: LORazepam 2 MG/ML VIAL IM PRN ×2 (08:10→14:27)
[2020-01-28] MEDS: ENOXAPARIN 40MG/0.4ML SYRINGE (J1650 PER 10MG) SC SCH (09:00)
[2020-01-28] MEDS: QUEtiapine FUMARATE 25 MG TAB PO SCH ×2 (09:53→21:50)
[2020-01-29 06:00] VITALS: BP 148/78
[2020-01-29] MEDS: ENOXAPARIN 40MG/0.4ML SYRINGE (J1650 PER 10MG) SC SCH (08:26)
[2020-01-29] MEDS: QUEtiapine FUMARATE 25 MG TAB PO SCH ×2 (08:26→20:42)
[2020-01-29] MEDS: LORazepam 2 MG/ML VIAL IM PRN (12:01)
[2020-01-30 06:00] VITALS: BP 119/73
[2020-01-30] MEDS: ENOXAPARIN 40MG/0.4ML SYRINGE (J1650 PER 10MG) SC SCH (09:00)
[2020-01-30] MEDS: QUEtiapine FUMARATE 25 MG TAB PO SCH ×2 (09:10→19:26)
--- NOTE | 2020-01-30 10:30 | IPNPDOC ---
Text Note Date of Service The patient was seen on 01/30/20. NOTE Subjective: Reports that patient has had increasing agitation with outbursts. Objective: General: NAD, sitting comfortably in chair HEENT: NC/AT Lungs: CTA B/L Heart: +S1S2, RRR Abd: soft, NT, +BS Ext: no edema A/P: 79 yo history of behavioral issues pending placement. #Neurocognitive disorder - admitted with hallucination with suicidal and homicidal ideations - currently she is on one-to-one sitter because of behavioral issues. - Cont sitter - increase seroquel to 50am, continue with 25 pm - PRN haloperidol - Pending placement. #DVT prophylaxis: lovenox DISPO: Pending placement. ALC status VS,Fishbone, I+O VS, Fishbone, I+O Vital Signs Date Time Temp Pulse Resp B/P (MAP) Pulse Ox O2 Delivery O2 Flow Rate FiO2 01/30/20 06:00 97.9 84 18 119/73 (88) 100 Room Air I&O- Last 24 Hours up to 6 AM 01/30/20 06:00 Intake Total 820 ml Output Total 0 ml Balance 820 ml JOEL CHAUDHARY MD Jan 30, 2020 10:30
[2020-01-31 06:00] VITALS: BP 121/59
[2020-01-31] MEDS: QUEtiapine FUMARATE 25 MG TAB PO SCH ×2 (08:38→19:41)
[2020-01-31] MEDS: ENOXAPARIN 40MG/0.4ML SYRINGE (J1650 PER 10MG) SC SCH (08:40)
[2020-02-01 06:00] VITALS: BP 116/65
[2020-02-01] MEDS: ENOXAPARIN 40MG/0.4ML SYRINGE (J1650 PER 10MG) SC SCH (09:00)
[2020-02-01] MEDS: QUEtiapine FUMARATE 25 MG TAB PO SCH ×3 (12:11→23:10)
[2020-02-01] MEDS: RAMELTEON 8 MG TAB (ROZEREM) PO SCH ×2 (21:00→23:10)
[2020-02-01] MEDS ORDERED: SENNA 8.6 MG TAB (SENOKOT) PO PRN (21:30)
[2020-02-01] MEDS: ACETAMINOPHEN 650MG ER TAB (TYLENOL ARTHRITIS) PO SCH (21:48)
[2020-02-02] MEDS: ACETAMINOPHEN 650MG ER TAB (TYLENOL ARTHRITIS) PO SCH ×3 (05:17→21:49)
[2020-02-02 06:00] VITALS: BP 136/68
[2020-02-02] MEDS: ENOXAPARIN 40MG/0.4ML SYRINGE (J1650 PER 10MG) SC SCH ×2 (08:01→08:08)
[2020-02-02] MEDS: MIRALAX *UNIT DOSE* 17GM PACKET PO SCH (08:02)
[2020-02-02] MEDS: QUEtiapine FUMARATE 25 MG TAB PO SCH ×2 (08:02→21:49)
[2020-02-02] MEDS: RAMELTEON 8 MG TAB (ROZEREM) PO SCH (21:49)
[2020-02-03] MEDS: ACETAMINOPHEN 650MG ER TAB (TYLENOL ARTHRITIS) PO SCH ×3 (05:17→22:00)
[2020-02-03 06:00] VITALS: BP 117/63
[2020-02-03] MEDS: ENOXAPARIN 40MG/0.4ML SYRINGE (J1650 PER 10MG) SC SCH (08:00)
[2020-02-03] MEDS: MIRALAX *UNIT DOSE* 17GM PACKET PO SCH (08:14)
[2020-02-03] MEDS: QUEtiapine FUMARATE 25 MG TAB PO SCH ×2 (08:14→21:00)
--- NOTE | 2020-02-03 18:20 | IPNPDOC ---
Date Seen The patient was seen on 02/03/20. Progress Note SUBJECTIVE: Patient found continue to roam around the [place] with nursing staff. Appears comfortable and denies any complaints. No acute events reported overnight. Mental status is better today, able to state all the names of her children and knew about them immediately when asked. No reports of agitation. denies any suicidal or homicidal ideation. No aggression. OBJECTIVE PHYSICAL EXAMINATION: VITAL SIGNS: Please see below. General: No acute distress, Alert Eyes: Normal sclera, EOMI HENT: Atraumatic Cardiovascular: Normal rate, normal rhythm. Pulmonary: Clear to auscultation b/l, no wheezing GI: Soft, nontender, nondistended Skin: Warm and dry Neuro: CN grossly intact. No focal deficits. Strengths equal b/l. LABORATORY DATA, IMAGING STUDIES, MICROBIOLOGY: Please see below. DVT prophylaxis ordered?: Lovenox ASSESSMENT AND PLAN: 1. Alzheimer's dementia - w/ hallucinations. Reportedly had suicidal ideation and homicidal ideation at home and early on admission. - Had been denying everytime I asked her however. - She is certainly confused but there is no evidence of aggression or presents danger to others. - She requires 1:1 purely for prevent elopement and safety, but not suspicious of harming herself. - Continue treatment with seroquel, haldol and ativan as needed. DISPOSITION: Placement pending. Will need lock in unit due to elopement risk. ALC status. VS, I&O, 24H, Fishbone Vital Signs/I&O Vital Signs Date Time Temp Pulse Resp B/P (MAP) Pulse Ox O2 Delivery O2 Flow Rate FiO2 02/03/20 06:00 97.9 58 18 117/63 (81) 99 Room Air I&O- Last 24 Hours up to 6 AM 02/03/20 05:59 Intake Total 840 ml Output Total 0 ml Balance 840 ml DARRIUS TERESA MD Feb 03, 2020 18:20
[2020-02-03] MEDS: RAMELTEON 8 MG TAB (ROZEREM) PO SCH (21:00)
[2020-02-04 06:00] VITALS: BP 118/62
[2020-02-04] MEDS: ACETAMINOPHEN 650MG ER TAB (TYLENOL ARTHRITIS) PO SCH ×3 (06:15→22:00)
[2020-02-04] MEDS: LORazepam 2 MG/ML VIAL IM PRN (08:11)
[2020-02-04] MEDS: MIRALAX *UNIT DOSE* 17GM PACKET PO SCH (08:15)
[2020-02-04] MEDS: QUEtiapine FUMARATE 25 MG TAB PO SCH ×2 (08:15→21:00)
[2020-02-04] MEDS: ENOXAPARIN 40MG/0.4ML SYRINGE (J1650 PER 10MG) SC SCH (09:00)
[2020-02-04] MEDS: RAMELTEON 8 MG TAB (ROZEREM) PO SCH (21:00)
[2020-02-05] MEDS: ACETAMINOPHEN 650MG ER TAB (TYLENOL ARTHRITIS) PO SCH ×3 (05:56→22:00)
[2020-02-05 06:00] VITALS: BP 113/57
[2020-02-05] MEDS: QUEtiapine FUMARATE 25 MG TAB PO SCH ×2 (10:54→21:00)
[2020-02-05] MEDS: MIRALAX *UNIT DOSE* 17GM PACKET PO SCH (10:54)
[2020-02-05] MEDS: RAMELTEON 8 MG TAB (ROZEREM) PO SCH (21:00)
[2020-02-06] MEDS: ACETAMINOPHEN 650MG ER TAB (TYLENOL ARTHRITIS) PO SCH ×3 (05:05→21:41)
[2020-02-06 06:00] VITALS: BP 119/58
[2020-02-06] MEDS: MIRALAX *UNIT DOSE* 17GM PACKET PO SCH (09:46)
[2020-02-06] MEDS: QUEtiapine FUMARATE 25 MG TAB PO SCH (09:47)
[2020-02-06] MEDS ORDERED: LORazepam 2 MG/ML VIAL As Ordered ONE (12:08)
[2020-02-06] MEDS: LORazepam 2 MG/ML VIAL IM PRN (12:11)
[2020-02-06] MEDS: RAMELTEON 8 MG TAB (ROZEREM) PO SCH (21:00)
[2020-02-06] MEDS: QUEtiapine FUMARATE 50 MG TAB PO SCH (21:00)
[2020-02-07] MEDS: RAMELTEON 8 MG TAB (ROZEREM) PO SCH (01:25)
[2020-02-07] MEDS: QUEtiapine FUMARATE 50 MG TAB PO SCH ×2 (01:25→08:44)
[2020-02-07] MEDS: ACETAMINOPHEN 650MG ER TAB (TYLENOL ARTHRITIS) PO SCH ×3 (01:25→14:00)
[2020-02-07 06:00] VITALS: BP 116/55
[2020-02-07] MEDS: MIRALAX *UNIT DOSE* 17GM PACKET PO SCH (08:45)
[2020-02-07] MEDS ORDERED: HALOPERIDOL 5MG/ML VIAL (J1630 PER 1) IM PRN (12:00)
[2020-02-08] MEDS: ACETAMINOPHEN 650MG ER TAB (TYLENOL ARTHRITIS) PO SCH ×3 (06:00→21:36)
[2020-02-08] MEDS: QUEtiapine FUMARATE 50 MG TAB PO SCH ×2 (08:25→20:23)
[2020-02-08] MEDS: MIRALAX *UNIT DOSE* 17GM PACKET PO SCH (08:26)
[2020-02-08 08:29] VITALS: BP 124/60
[2020-02-08] MEDS: RAMELTEON 8 MG TAB (ROZEREM) PO SCH (20:23)
[2020-02-09] MEDS: ACETAMINOPHEN 650MG ER TAB (TYLENOL ARTHRITIS) PO SCH ×3 (06:00→21:01)
[2020-02-09 08:00] VITALS: BP 118/62
[2020-02-09] MEDS: MIRALAX *UNIT DOSE* 17GM PACKET PO SCH (08:57)
[2020-02-09] MEDS: QUEtiapine FUMARATE 50 MG TAB PO SCH ×2 (08:57→21:01)
--- NOTE | 2020-02-09 19:24 | IPNPDOC ---
Date Seen The patient was seen on 02/09/20. Progress Note SUBJECTIVE: Patient was sitting very calmly in the room today. Previously noted to be aggressive but no reports noted in the past 2 days. Does seem to roam the halls and randomly walk into different people's room due to dementia. OBJECTIVE PHYSICAL EXAMINATION: VITAL SIGNS: Please see below. General: No acute distress, Alert, confused Eyes: Normal sclera, EOMI HENT: Atraumatic Cardiovascular: Normal rate, normal rhythm. Pulmonary: Clear to auscultation b/l, no wheezing GI: Soft, nontender, nondistended Skin: Warm and dry Neuro: CN grossly intact. No focal deficits. Strengths equal b/l. LABORATORY DATA, IMAGING STUDIES, MICROBIOLOGY: Please see below. DVT prophylaxis ordered?: Lovenox ASSESSMENT AND PLAN: 1. Alzheimer's dementia - w/ hallucinations. Reportedly had suicidal ideation and homicidal ideation at home and early on admission which has not been appreciated recently. - She requires 1:1 purely for prevent elopement and safety, but not suspicious of harming herself. - Continue treatment with seroquel, haldol and ativan as needed. DISPOSITION: Placement pending. Will need lock in unit due to elopement risk. ALC status. VS, I&O, 24H, Fishbone Vital Signs/I&O Vital Signs Date Time Temp Pulse Resp B/P (MAP) Pulse Ox O2 Delivery O2 Flow Rate FiO2 02/09/20 08:00 98.2 76 16 118/62 (80) 97 Room Air I&O- Last 24 Hours up to 6 AM 02/09/20 05:59 Intake Total 340 ml Balance 340 ml DARRIUS TERESA MD Feb 09, 2020 19:24
[2020-02-09] MEDS: RAMELTEON 8 MG TAB (ROZEREM) PO SCH (21:01)
[2020-02-10] MEDS: ACETAMINOPHEN 650MG ER TAB (TYLENOL ARTHRITIS) PO SCH ×3 (05:29→20:56)
[2020-02-10 06:00] VITALS: BP 117/55
[2020-02-10] MEDS: QUEtiapine FUMARATE 50 MG TAB PO SCH ×2 (09:12→20:56)
[2020-02-10] MEDS: MIRALAX *UNIT DOSE* 17GM PACKET PO SCH (09:12)
[2020-02-10] MEDS: RAMELTEON 8 MG TAB (ROZEREM) PO SCH (20:56)
[2020-02-11] MEDS: ACETAMINOPHEN 650MG ER TAB (TYLENOL ARTHRITIS) PO SCH ×3 (05:22→21:00)
[2020-02-11 06:00] VITALS: BP 110/53
[2020-02-11] MEDS: MIRALAX *UNIT DOSE* 17GM PACKET PO SCH (08:08)
[2020-02-11] MEDS: QUEtiapine FUMARATE 50 MG TAB PO SCH ×2 (08:08→21:00)
[2020-02-11] MEDS: RAMELTEON 8 MG TAB (ROZEREM) PO SCH (21:00)
[2020-02-12] MEDS: ACETAMINOPHEN 650MG ER TAB (TYLENOL ARTHRITIS) PO SCH (05:42)
[2020-02-12 06:00] VITALS: BP 123/59
[2020-02-12] MEDS: MIRALAX *UNIT DOSE* 17GM PACKET PO SCH (08:26)
[2020-02-12] MEDS: QUEtiapine FUMARATE 50 MG TAB PO SCH (08:26)
[2020-02-14] MEDS ORDERED: RAMELTEON 8 MG TAB (ROZEREM) ONE (09:33)
[2020-02-14] MEDS ORDERED: ACETAMINOPHEN 650MG ER TAB (TYLENOL ARTHRITIS) ONE (09:33)
[2020-02-14] MEDS ORDERED: QUEtiapine FUMARATE 50 MG TAB ONE ×2 (09:33)
[2020-02-14] MEDS ORDERED: MIRALAX *UNIT DOSE* 17GM PACKET ONE (09:33)
[2020-02-15] MEDS ORDERED: QUEtiapine FUMARATE 50 MG TAB ONE ×2 (09:06→10:06)
[2020-02-15] MEDS ORDERED: MIRALAX *UNIT DOSE* 17GM PACKET ONE (10:06)
[2020-02-15] MEDS ORDERED: ACETAMINOPHEN 650MG ER TAB (TYLENOL ARTHRITIS) ONE (10:06)
[2020-02-15] MEDS ORDERED: RAMELTEON 8 MG TAB (ROZEREM) ONE (10:06)
[2020-02-16] MEDS ORDERED: ACETAMINOPHEN 650MG ER TAB (TYLENOL ARTHRITIS) ONE (05:52)
[2020-02-16] MEDS ORDERED: QUEtiapine FUMARATE 50 MG TAB ONE (09:10)
[2020-02-17] MEDS ORDERED: QUEtiapine FUMARATE 50 MG TAB ONE ×2 (08:33→20:05)
[2020-02-17] MEDS ORDERED: RAMELTEON 8 MG TAB (ROZEREM) ONE (20:05)
[2020-02-20] MEDS ORDERED: QUEtiapine FUMARATE 50 MG TAB ONE (19:51)
[2020-02-20] MEDS ORDERED: RAMELTEON 8 MG TAB (ROZEREM) ONE (19:51)
[2020-02-21] MEDS ORDERED: MIRALAX *UNIT DOSE* 17GM PACKET ONE (10:07)
[2020-02-21] MEDS ORDERED: QUEtiapine FUMARATE 50 MG TAB ONE (10:07)
[2020-02-22] MEDS ORDERED: QUEtiapine FUMARATE 50 MG TAB ONE ×3 (11:02→20:02)
[2020-02-22] MEDS ORDERED: RAMELTEON 8 MG TAB (ROZEREM) ONE ×2 (12:38→20:02)
[2020-02-23] MEDS ORDERED: QUEtiapine FUMARATE 50 MG TAB ONE ×2 (08:01→21:00)
[2020-02-23] MEDS ORDERED: RAMELTEON 8 MG TAB (ROZEREM) ONE (21:00)
[2020-02-24] MEDS ORDERED: QUEtiapine FUMARATE 50 MG TAB ONE ×2 (08:36→20:31)
[2020-02-24] MEDS ORDERED: RAMELTEON 8 MG TAB (ROZEREM) ONE (20:31)
[2020-02-25] MEDS ORDERED: QUEtiapine FUMARATE 50 MG TAB ONE ×2 (07:31→21:10)
[2020-02-25] MEDS ORDERED: RAMELTEON 8 MG TAB (ROZEREM) ONE (21:10)
[2020-02-26] MEDS ORDERED: QUEtiapine FUMARATE 50 MG TAB ONE ×2 (09:14→20:11)
[2020-02-26] MEDS ORDERED: RAMELTEON 8 MG TAB (ROZEREM) ONE (20:11)
[2020-02-27] MEDS ORDERED: QUEtiapine FUMARATE 50 MG TAB ONE (09:32)
[2020-03-24 11:48] LABS: HEMATOCRIT 37.1 % (36.0-47.0); MEAN CORPUSCULAR HEMOGLOBIN 31.8 pg (27.0-33.0); MEAN CORPUSCULAR HGB CONC 32.3 g/dl (32.0-36.5); MEAN CORPUSCULAR VOLUME 98.4 fl (80.0-96.0); PLATELET COUNT, AUTOMATED 160 10^3/uL (150-450); RED BLOOD COUNT 3.77 10^6/uL (4.00-5.40)
[2020-03-30 12:52] LABS: BLOOD UREA NITROGEN 16 MG/DL (7-18); CREATININE FOR GFR 0.68 MG/DL (0.55-1.30); GLOMERULAR FILTRATION RATE > 60.0 (>39); GLUCOSE, FASTING 96 MG/DL (70-100); POTASSIUM SERUM 4.2 MEQ/L (3.5-5.1); SODIUM LEVEL 145 MEQ/L (136-145)
[2020-03-30 12:53] LABS: CALCIUM LEVEL 8.8 MG/DL (8.8-10.2); CARBON DIOXIDE LEVEL 29 mmol/L (20-29); CHLORIDE LEVEL 111 MEQ/L (98-107)
[2020-04-12 20:05] LABS: HEMATOCRIT 36.4 % (36.0-47.0); MEAN CORPUSCULAR HEMOGLOBIN 31.7 pg (27.0-33.0); PLATELET COUNT, AUTOMATED 220 10^3/uL (150-450); RED BLOOD COUNT 3.79 10^6/uL (4.00-5.40); WHITE BLOOD COUNT 4.4 10^3/uL (4.0-10.0)
[2020-05-16 13:58] LABS: BLOOD UREA NITROGEN 10 MG/DL (7-18); CALCIUM LEVEL 8.9 MG/DL (8.8-10.2); CARBON DIOXIDE LEVEL 32 MEQ/L (21-32); CHLORIDE LEVEL 112 MEQ/L (98-107); CREATININE FOR GFR 0.66 MG/DL (0.55-1.30); GLOMERULAR FILTRATION RATE > 60.0 (>39); GLUCOSE, FASTING 90 MG/DL (70-100); POTASSIUM SERUM 4.5 MEQ/L (3.5-5.1); SODIUM LEVEL 147 MEQ/L (136-145)
== END 2020-02-27 12:20 | disposition home or self-care (01) | DRG 57 ==
LOC: M ED 10:27 → M ED INP 10:28 → ENRESERV 18:12 → M MSPAV 20:31 → OBSVTOIN 01-14 16:52 → M MSPAV 02-12 12:30
PROVIDERS: ADMIT Neuromusculoskeletal Medicine & OMM; ATTEND Internal Medicine
DX: G30.9 Alzheimer's disease, unspecified (principal); R45.851 Suicidal ideations; F02.81 Dementia in other diseases classified elsewhere, unspecified severity, with behavioral disturbance; F41.9 Anxiety disorder, unspecified; M79.7 Fibromyalgia; K21.9 Gastro-esophageal reflux disease without esophagitis; M54.5 Low back pain; R45.850 Homicidal ideations; R41.9 Unspecified symptoms and signs involving cognitive functions and awareness; Z79.899 Other long term (current) drug therapy

== ENCOUNTER → 2020-04-12 | Outpatient (REF) | payer MEDICARE, OTHER ==
[~2020-04-12] MED LIST: ACET1TAB55 PO; ALPR0.25 PO; AMLO1TAB24 PO; ARIC1TAB PO; DONE5TAB82 PO; PATIENT COMMENT; QUET5TAB PO; RAME8TAB2 PO; VITA1CAP25 PO
[2020-04-12 13:56] LABS: BASO % 0.8 % (0.0-1.0); EOS # 0.1 10^3/uL (0.0-0.5); EOS % 1.6 % (0.0-3.0); HEMATOCRIT 42.2 % (36.0-47.0); HEMOGLOBIN 14.2 g/dl (12.0-15.5); LYMPH % 20.2 % (24.0-44.0); MEAN CORPUSCULAR HEMOGLOBIN 31.8 pg (27.0-33.0); MEAN CORPUSCULAR HGB CONC 33.6 g/dl (32.0-36.5); MEAN CORPUSCULAR VOLUME 94.6 fl (80.0-96.0); MONO # 0.4 10^3/uL (0.0-0.8); MONO % 7.3 % (0.0-5.0); NEUTROPHILS # 3.6 10^3/uL (1.5-8.5); NEUTROPHILS % 69.9 % (36.0-66.0); PLATELET COUNT, AUTOMATED 218 10^3/uL (150-450); RED BLOOD COUNT 4.46 10^6/uL (4.00-5.40); WHITE BLOOD COUNT 5.1 10^3/uL (4.0-10.0)
[2020-04-12 14:48] LABS: TOTAL 25(OH) VITAMIN D 31.8 NG/ML (30.0-100.0)
[2020-04-12 14:52] LABS: ALBUMIN 3.7 GM/DL (3.2-5.2); ALT/SGPT 21 U/L (12-78); BILIRUBIN,TOTAL 0.5 MG/DL (0.2-1.0); BLOOD UREA NITROGEN 12 MG/DL (7-18); CALCIUM LEVEL 9.3 MG/DL (8.8-10.2); CARBON DIOXIDE LEVEL 31 MEQ/L (21-32); CHLORIDE LEVEL 105 MEQ/L (98-107); CHOLESTEROL LEVEL 262 MG/DL (<200); CHOLESTEROL RISK RATIO 3.195 (<5); CREATININE FOR GFR 0.74 MG/DL (0.55-1.30); FREE T4 0.92 NG/DL (0.76-1.46); GLOMERULAR FILTRATION RATE > 60.0 (>39); GLUCOSE, FASTING 116 MG/DL (70-100); HDL CHOLESTEROL 82 MG/DL (>40); LDL CHOLESTEROL 166 MG/DL (<100); NON-HDL-C 180 MG/DL; SODIUM LEVEL 139 MEQ/L (136-145); TOTAL PROTEIN 6.7 GM/DL (6.4-8.2); TRIGLYCERIDES LEVEL 71 MG/DL (<150)
[2020-04-12 16:21] LABS: HEMOGLOBIN A1c 5.5 %
== END ==
LOC: M LAB REF 12:44
PROVIDERS: ATTEND Physician Assistant
DX: Z86.39 Personal history of other endocrine, nutritional and metabolic disease (principal); Z79.899 Other long term (current) drug therapy

== ENCOUNTER 2020-04-24 05:11 | Inpatient (IN) | payer MEDICARE, OTHER ==
[~2020-04-24] VITALS: Ht 167.6 cm; Wt 55.6 kg
[~2020-04-24 05:11] MED LIST changes: -ACET1TAB55 PO; -AMLO1TAB24 PO; -ARIC1TAB PO; -QUET5TAB PO; -RAME8TAB2 PO
[2020-04-24] MEDS ORDERED: MAALOX 30 ML SUSP *UDC PO PRN (06:15)
[2020-04-24] MEDS ORDERED: MORPHINE 2 MG/ML 1ML VIAL (J2270) IV PRN (06:15)
[2020-04-24] MEDS ORDERED: MOM 30ML SUSPENSION UDC PO PRN (06:15)
--- NOTE | 2020-04-24 06:15 | HPEPDOC ---
[facility] Medical History & Physical Date of Admission Apr 24, 2020 Date of Service: Apr 24, 2020 Attending Physician: CHANA DAS MD History and Physical TIME OF SERVICE: 6:38 AM CHIEF COMPLAINT: abdominal pain HISTORY OF PRESENT ILLNESS: This 79 yr old F has dementia and can't remember the details surrounding her transfer. Based on notes from [facility] she presented w c/o sharp, cramping 7/10 in severity non-radiating abdominal pain. At [facility] her vitals were wnl except for a BP of 170/68. Her CBC, CMP, lipase, trop, d-dimer, BNP, lactic acid, & UA were unremarkable except for a glucose of 156, Total Bili of 1.5, AST of 189 and ALT of 75. CT revealed a distended gallbladder w stones, edema, bile duct dilation suggestive of acute cholecystitis therefore she was transferred here for surgical evaluation. Prior to transfer she was given Rocephin.Currently she denies having any pain or acute c/o. REVIEW OF SYSTEMS: limited because the patient has dementia PAST MEDICAL/ SURGICAL HISTORY: Alzheimer's Dementia GERD Fibromyalgia Low back pain Hx of MDD w HI Knee surgery Left arm surgery Appendectomy Tension free vaginal repair w obturator approach to manage stress urinary incontinence SOCIAL HISTORY: Moved to the area from [place] in December with her Lives w daughter FAMILY HISTORY: unknown ALLERGIES: Please see below. HOME MEDICATIONS: Please see below. PHYSICAL EXAMINATION: Vital Signs Date Time Temp Pulse Resp B/P (MAP) Pulse Ox O2 Delivery O2 Flow Rate FiO2 04/24/20 05:43 97.0 72 18 125/60 (81) 100 Room Air GEN: well-nourished / well developed/ NAD INTEGUMENT: not flushed CVS: RRR/NMRG/ no lower extremity edema LUNGS: able to speak full sentences without stopping to take a breath / no coughing / lungs are clear to auscultation bilaterally on room air ABDOMEN: Contour (flat ) / soft & not tender with palpation MSK/EXTREMITIES: NCAT NEURO: speech is not dysarthric / strength is 5/5 / DTRs (0-4+) PSYCH: alert and oriented to person only / able to understand and follow simple commands LABORATORY DATA: see HPI IMAGING: see HPI MICROBIOLOGY: Blood cx pending ASSESSMENT: is a 79 yr old w a hx of Alzheimer's dementia who was transferred from [place] for management of acute cholecystitis. PLAN: 1. Acute Cholecystitis Based on records from [facility] she didn't meet SIRS criteria Plan: admit to medical floor / NPO w IVF / f/u CBC, CMP, Coags & MRCP / f/u w / Morphine PRN for pain 2. Preoperative Assessment Her revised Cardiac Index to assess risk of MACE from surgery = 1 point, based on records from [facility] her BNP was <300 therefore no additional testing is needed prior to proceeding with surgery 3. Alzheimer's Dementia Plan: c/w alprazolam and donepezil / 1:1 sitter DVT PROPHYLAXIS: SCDs DISPOSITION: home w family vs placement after more than 2 midnight's stay Home Medications Scheduled Quetiapine Fumarate (Quetiapine Fumarate) 50 Mg Tablet, 50 MG PO BID Ramelteon (Ramelteon) 8 Mg Tablet, 8 MG PO QHS Miscellaneous Medications [Patient Comment] UNABLE TO VERIFY WITH PATIENT, MED LIST OBTAINED FROM EXTERNAL AND TRANSFER FROM [facility] Allergies Coded Allergies: No Known Allergies (Unverified , 01/12/20) A-FIB/CHADSVASC A-FIB History Current/History of A-Fib/PAF?: No Current PO Anticoag Therapy: No CHANA DAS MD Apr 24, 2020 06:15
[2020-04-24] MEDS ORDERED: QUET5TAB PO (06:38)
[2020-04-24] MEDS ORDERED: RAME8TAB2 PO (06:38)
[2020-04-24 06:43] LABS: BASO % 0.2 % (0.0-1.0); EOS % 0.7 % (0.0-3.0); HEMATOCRIT 36.3 % (36.0-47.0); HEMOGLOBIN 12.1 g/dl (12.0-15.5); LYMPH # 0.8 10^3/uL (1.5-5.0); LYMPH % 18.2 % (24.0-44.0); MEAN CORPUSCULAR HEMOGLOBIN 31.3 pg (27.0-33.0); MEAN CORPUSCULAR HGB CONC 33.3 g/dl (32.0-36.5); MEAN CORPUSCULAR VOLUME 93.8 fl (80.0-96.0); MONO # 0.5 10^3/uL (0.0-0.8); MONO % 11.2 % (0.0-5.0); NEUTROPHILS # 3.1 10^3/uL (1.5-8.5); NEUTROPHILS % 69.5 % (36.0-66.0); PLATELET COUNT, AUTOMATED 185 10^3/uL (150-450); RED BLOOD COUNT 3.87 10^6/uL (4.00-5.40); WHITE BLOOD COUNT 4.4 10^3/uL (4.0-10.0)
[2020-04-24] MEDS: NS 1,000 ML IV SCH ×3 (06:49→19:44)
[2020-04-24 07:01] LABS: ALBUMIN 2.8 GM/DL (3.2-5.2); ALT/SGPT 227 U/L (12-78); BILIRUBIN,TOTAL 1.6 MG/DL (0.2-1.0); BLOOD UREA NITROGEN 12 MG/DL (7-18); CALCIUM LEVEL 8.5 MG/DL (8.8-10.2); CARBON DIOXIDE LEVEL 27 MEQ/L (21-32); CHLORIDE LEVEL 110 MEQ/L (98-107); CREATININE FOR GFR 0.61 MG/DL (0.55-1.30); GLOMERULAR FILTRATION RATE > 60.0 (>39); GLUCOSE, FASTING 112 MG/DL (70-100); NT-PRO BNP 374 PG/ML (<450); POTASSIUM SERUM 4.1 MEQ/L (3.5-5.1); SODIUM LEVEL 142 MEQ/L (136-145); TOTAL PROTEIN 5.5 GM/DL (6.4-8.2)
[2020-04-24 07:08] LABS: INR 1.05; PROTHROMBIN TIME 13.9 SECONDS (12.5-14.3)
--- NOTE | 2020-04-24 07:51 | IPNPDOC ---
Date Seen The patient was seen on 04/24/20. Progress Note SUBJECTIVE: The patient was seen and examined at bedside this morning. No acute events overnight. Patient has advanced dementia, is disoriented, alert and oriented 1, person only. She denies any abdominal pain, dysuria. She denies nausea, vomiting. Reports last bowel movement, was formed, 2 days ago. Denies pale stools. OBJECTIVE PHYSICAL EXAMINATION: VITAL SIGNS: Please see below. General: frail, comfortable HEENT: PERRLA, EOMI, sclerae clear Neck: supple, normal ROM, no JVD Respiratory: lungs CTAB, no wheeze, no rales, no crackles CVS: RRR, normal S1, S2, no murmurs Abdo: soft, no masses, no hepatosplenomegaly, BS+, no rebound tenderness Extremities: no edema, pulses 2+ MSK: no joint deformities, normal ROM Neuro: no focal neuro deficits, moving all 4 extremities, CN2-12 intact. S trength 5/5 in all 4 extremities. No nystagmus. Psych: calm, cooperative, AAO x 3 LABORATORY DATA, IMAGING STUDIES, MICROBIOLOGY: Please see below. DVT prophylaxis ordered?: Y, SCD ASSESSMENT AND PLAN: is a 79 yr old w a hx of Alzheimer's dementia who was transferred from [place] for management of suspected acute cholecystitis. Liver enzymes at [facility] seemed to be trending up. I reviewed charts from [place]. AST/ALT, 180/75 respectively at [place], now markedly increased. Gen. surgery, Dr. Castañeda was consulted. Concern for CBD stone. Patient's abdominal pain has resolved, possibly suggesting passage of CBD stone. Patient has pending MRCP. Decision for surgery versus GI intervention pending imaging. If choledocholithiasis observed, cholecystectomy may be indicated. PROBLEMS: 1. Acute Cholecystitis: likely related to CBD stone. afebrile. No WBC. pending MRCP. Dr. Castañeda consulted. Consider GI intervention if CBD dilated, stone persists on MRCP. Cholecystectomy may be indicated. Monitor liver enzymes (AST/ALT 447/227. T bili 1.6. D bili 1.1). 2. Preoperative Assessment Her revised Cardiac Index to assess risk of MACE from surgery = 1 point, based on records from [facility] her BNP was <300 therefore no additional testing is needed prior to proceeding with surgery 3. Alzheimer's Dementia: patient is calm. c/w alprazolam and donepezil. resume rozeram, seroquel qhs. DVT ppx: lovenox. Dispo: patient lives with daughter. Pending medical and surgical clearance. Will require PT evaluation to determine need for rehab vs return to home. VS, I&O, 24H, Fishbone Vital Signs/I&O Vital Signs Date Time Temp Pulse Resp B/P (MAP) Pulse Ox O2 Delivery O2 Flow Rate FiO2 04/24/20 07:44 96.3 67 16 121/57 (78) 99 Room Air Laboratory Data 24H LABS Laboratory Tests 2 04/24/20 06:12: Immature Granulocyte % (Auto) 0.2, Neutrophils (%) (Auto) 69.5H, Lymphocytes (%) (Auto) 18.2L, Monocytes (%) (Auto) 11.2H, Eosinophils (%) (Auto) 0.7, Basophils (%) (Auto) 0.2, Neutrophils # (Auto) 3.1, Lymphocytes # (Auto) 0.8L, Monocytes # (Auto) 0.5, Eosinophils # (Auto) 0.0, Basophils # (Auto) 0.0, Nucleated Red Blood Cells % (auto) 0.0, Prothrombin Time 13.9, Prothromb Time International Ratio 1.05, Anion Gap 5L, Glomerular Filtration Rate > 60.0, Calcium Level 8.5L, Total Bilirubin 1.6H, Aspartate Amino Transf (AST/SGOT) 447H, Alanine Aminotransferase (ALT/SGPT) 227H, Alkaline Phosphatase 90, WY-Jfn-[id number]-Type Natriuretic Peptide 374, Total Protein 5.5L, Albumin 2.8L, Albumin/Globulin Ratio 1.0L, Coronavirus (COVID-19)(PCR) NEGATIVE CBC/BMP Laboratory Tests 04/24/20 06:12 Microbiology Microbiology 04/24/20 Blood Culture, Received Pending YANE JOHNS MD Apr 24, 2020 07:51
[2020-04-24 08:04] LABS: BILIRUBIN,DIRECT 1.1 MG/DL (0.0-0.2)
[2020-04-24 08:15] VITALS: BP 119/58
[2020-04-24] MEDS: QUEtiapine FUMARATE 50 MG TAB PO SCH ×2 (11:25→19:43)
--- NOTE | 2020-04-24 15:33 | REPVR ---
PROCEDURE INFORMATION: Exam: MR Abdomen Without Contrast Exam date and time: 04/24/2020 2:17 PM Age: 79 years old Clinical indication: Abdominal pain; Localized; Right upper quadrant (ruq); Additional info: Abdominal pain/ needs to be mrcp TECHNIQUE: Imaging protocol: MR of the abdomen without contrast. 3D rendering (Not supervised by radiologist): MIP and/or 3D reconstructed images were created by the technologist. COMPARISON: No relevant prior studies available. FINDINGS: Liver: No mass. Gallbladder and bile ducts: The midportion of the common bile duct measures 9 mm and the lower portion of the common bile duct measures 7 mm. There is no evidence of a filling defect within the common duct. There is no evidence of intrahepatic biliary dilatation Pancreatic duct appears normal in size. There are multiple small round cystic areas throughout all aspects of the pancreas. This should be correlated with a CT scan of the abdomen and pancreas with contrast since cysts in the pancreas can be the result IPMN. There are approximately 10 gallstones ranging in size from 3 mm to 2 cm. IMPRESSION: 1. 10 gallstones ranging in size from 3 mm to 2 cm in size. 2. The midportion of the common bile duct is 9 mm and there is no intraluminal filling defect. 3. There are small cystic areas throughout all aspects of the pancreas and to evaluate for the possibility of IPMN recommend CT scan of the abdomen and pelvis with IV contrast. Electronically signed by: Serg Johnson On 04/24/2020 15:33:18 PM
[2020-04-24] MEDS: RAMELTEON 8 MG TAB (ROZEREM) PO SCH (19:43)
[2020-04-24] MEDS ORDERED: ISOVUE-370 76% 100ML VIAL As Ordered ONE (19:48)
[2020-04-24 22:00] VITALS: BP 148/70
[2020-04-25 06:00] VITALS: BP 143/71
[2020-04-25 07:02] LABS: BASO % 0.8 % (0.0-1.0); EOS # 0.1 10^3/uL (0.0-0.5); EOS % 2.3 % (0.0-3.0); HEMATOCRIT 36.6 % (36.0-47.0); HEMOGLOBIN 12.1 g/dl (12.0-15.5); LYMPH # 0.8 10^3/uL (1.5-5.0); LYMPH % 21.6 % (24.0-44.0); MEAN CORPUSCULAR HEMOGLOBIN 30.9 pg (27.0-33.0); MEAN CORPUSCULAR HGB CONC 33.1 g/dl (32.0-36.5); MEAN CORPUSCULAR VOLUME 93.4 fl (80.0-96.0); MONO # 0.3 10^3/uL (0.0-0.8); NEUTROPHILS # 2.6 10^3/uL (1.5-8.5); PLATELET COUNT, AUTOMATED 175 10^3/uL (150-450); RED BLOOD COUNT 3.92 10^6/uL (4.00-5.40); WHITE BLOOD COUNT 3.9 10^3/uL (4.0-10.0)
[2020-04-25 07:18] LABS: ALBUMIN 2.8 GM/DL (3.2-5.2); ALT/SGPT 193 U/L (12-78); BILIRUBIN,TOTAL 1.4 MG/DL (0.2-1.0); BLOOD UREA NITROGEN 11 MG/DL (7-18); CALCIUM LEVEL 8.2 MG/DL (8.8-10.2); CARBON DIOXIDE LEVEL 24 MEQ/L (21-32); CHLORIDE LEVEL 112 MEQ/L (98-107); CREATININE FOR GFR 0.59 MG/DL (0.55-1.30); GLOMERULAR FILTRATION RATE > 60.0 (>39); GLUCOSE, FASTING 66 MG/DL (70-100); LIPASE 106 U/L (73-393); SODIUM LEVEL 142 MEQ/L (136-145); TOTAL PROTEIN 5.3 GM/DL (6.4-8.2)
[2020-04-25] MEDS ORDERED: DEXTROSE 50% 50 ML SYRINGE IV STA (07:51)
[2020-04-25] MEDS: D5W/LR 1,000 ML IV SCH ×2 (08:08→20:55)
[2020-04-25] MEDS ORDERED: DEXTROSE 50% 50 ML SYRINGE IV PRN (08:30)
[2020-04-25] MEDS ORDERED: GLUCOSE 4GM CHEW TABLET PO PRN (08:30)
[2020-04-25] MEDS ORDERED: GLUCAGON INJ 1MG VIAL SC PRN (08:30)
[2020-04-25] MEDS: QUEtiapine FUMARATE 50 MG TAB PO SCH ×2 (08:35→20:54)
[2020-04-25] MEDS: LIDOCAINE 5% (LIDODERM) PATCH TD SCH (08:35)
--- NOTE | 2020-04-25 08:43 | IPNPDOC ---
Date Seen The patient was seen on 04/25/20. Progress Note SUBJECTIVE: The patient was seen and examined at bedside this morning. No acute events overnight. Patient has advanced dementia, is disoriented, alert and oriented 1, person only. She denies any abdominal pain, dysuria. She denies nausea, vomiting. Patient reports mild low back pain. She is lying in bed. OBJECTIVE PHYSICAL EXAMINATION: VITAL SIGNS: Please see below. General: frail, comfortable HEENT: PERRLA, EOMI, sclerae clear Neck: supple, normal ROM, no JVD Respiratory: lungs CTAB, no wheeze, no rales, no crackles CVS: RRR, normal S1, S2, no murmurs Abdo: thin, soft, no masses, no hepatosplenomegaly, BS+, no rebound tenderness Extremities: no edema, no cyanosis, pulses 2+, nail thickening MSK: no joint deformities, normal ROM Neuro: no focal neuro deficits, moving all 4 extremities, CN2-12 intact. Strength 5/5 in all 4 extremities. No nystagmus. Psych: calm, cooperative, AAO x 1 LABORATORY DATA, IMAGING STUDIES, MICROBIOLOGY: Please see below. DVT prophylaxis ordered?: Y, SCD, add lovenox ASSESSMENT AND PLAN: is a 79 yr old w a hx of Alzheimer's dementia who was transferred from [place] for management of suspected acute cholecystitis. Liver enzymes at [facility] seemed to be trending up. I reviewed charts from [place]. AST/ALT, 180/75 respectively at [place], now markedly increased. Gen. surgery, Dr. Castañeda was consulted. Concern for CBD stone. Patient's abdominal pain has resolved, possibly suggesting passage of CBD stone. MRCP on 04/24/20 showed cholelithiasis (10 stanes). CBD diam 9mm, no filling defect. Small cystic area throughout all aspects of pancreas, possibility of IPMN per read. Pending CT abdomen and pelvis with IV contrast to better characterize. Possibility of mass effect on ampulla/biliary tree. PROBLEMS: 1. Transaminitis: Concern for acute cholecystitis on transfer from [place]. Possible CBD stone. Afebrile. No WBC. MRCP showed cholelithiasis, CBD diameter 9mm. Cystic areas around pancreas concern for IPMN. CT abdo pelvis w IV contrast ordered. Dr. Castañeda consulted. Liver enzymes (AST/ALBERTO 190/193) are slowly trending down. Discussed with Dr. Castañeda, possibility that a stone has passed, but concern for possible mass effect on ampula from pancreatic abnormalities seen on MRCP. Will obtain CT A/P w IV contrast to better characterize. Consider GI consult based on CT findings. Trial clear liquid diet. D5LR 80 cc/hr as mildly hypoglycemic this morning. 2. Low back pain: bed to chair. Lidocaine patch. Obtain lumbar XR. 3. Preoperative Assessment Her revised Cardiac Index to assess risk of MACE from surgery = 1 point, based on records from [facility] her BNP was <300 therefore no additional testing is needed prior to proceeding with surgery 4. Alzheimer's Dementia: patient is calm. resume rozeram, seroquel qhs. Donepezil 5 mg qhs. Previously had difficulties with elopement/behavioural issues. Sitter 1:1. 5. Hypoglycemia: FG 66. Given amp of D50. D5LR started. CLD. Hypoglycemia precautions. FBSB Q4H. DVT ppx: lovenox. Dispo: I spoke to patient's daughter Yue this morning at tel: [phone]. Obtained consent for IV contrast. Patient lives at home with her [facility]. Family support close by. Will require PT evaluation to determine need for rehab vs return to home. VS, I&O, 24H, Fishbone VS, I&O, 24H, Fishbone Vital Signs/I&O Vital Signs Date Time Temp Pulse Resp B/P (MAP) Pulse Ox O2 Delivery O2 Flow Rate FiO2 04/25/20 06:00 97.7 73 18 143/71 (95) 99 Room Air I&O- Last 24 Hours up to 6 AM 04/25/20 06:00 Intake Total 100 ml Output Total 500 ml Balance -400 ml Laboratory Data 24H LABS Laboratory Tests 2 04/25/20 06:35: Immature Granulocyte % (Auto) 0.3, Neutrophils (%) (Auto) 67.0H, Lymphocytes (%) (Auto) 21.6L, Monocytes (%) (Auto) 8.0H, Eosinophils (%) (Auto) 2.3, Basophils (%) (Auto) 0.8, Neutrophils # (Auto) 2.6, Lymphocytes # (Auto) 0.8L, Monocytes # (Auto) 0.3, Eosinophils # (Auto) 0.1, Basophils # (Auto) 0.0, Nucleated Red Blood Cells % (auto) 0.0, Anion Gap 6L, Glomerular Filtration Rate > 60.0, Calcium Level 8.2L, Total Bilirubin 1.4H, Aspartate Amino Transf (AST/SGOT) 190H, Alanine Aminotransferase (ALT/SGPT) 193H, Alkaline Phosphatase 106, Total Protein 5.3L, Albumin 2.8L, Albumin/Globulin Ratio 1.1L, Lipase 106 CBC/BMP Laboratory Tests 04/25/20 06:35 Microbiology Microbiology 04/24/20 Blood Culture - Preliminary, Resulted No growth after 24 hours . All specim... YANE JOHNS MD Apr 25, 2020 08:43
[2020-04-25] MEDS ORDERED: ISOVUE-370 76% 100ML VIAL As Ordered ONE (09:14)
[2020-04-25 10:20] LABS: BILIRUBIN,DIRECT 0.4 MG/DL (0.0-0.2)
--- NOTE | 2020-04-25 10:53 | REPVR ---
PROCEDURE INFORMATION: Exam: CT Abdomen And Pelvis With Contrast Exam date and time: 04/25/2020 10:19 AM Age: 79 years old Clinical indication: Condition or disease; Other: Abdnormal mrcp. Cystic masses around pancreas TECHNIQUE: Imaging protocol: Computed tomography of the abdomen and pelvis with intravenous contrast. Radiation optimization: All CT scans at this facility use at least one of these dose optimization techniques: automated exposure control; mA and/or kV adjustment per patient size (includes targeted exams where dose is matched to clinical indication); or iterative reconstruction. Contrast material: ISOVUE 370; Contrast volume: 100 ml; Contrast route: INTRAVENOUS (IV); COMPARISON: MRI ABDOMEN WITHOUT CONTRAST 04/24/2020 1:41 PM FINDINGS: Liver: The liver is moderately fatty enlarged 190 mm. There is a left lobe liver cyst at 21 mm. Gallbladder and bile ducts: There is cholelithiasis. There is a small amount of fluid around the gallbladder. Specifically between the liver and gallbladder. Common bile duct is dilated 9 mm correlating with the MRI. Pancreas: Numerous pancreas calcifications are identified. Small possible cystic areas are seen throughout the pancreas measuring to 3.3 mm. These are indeterminate. Spleen: Normal. No splenomegaly. Adrenals: Normal. No mass. Kidneys and ureters: Bilateral prominent extrarenal pelvises are identified. Stomach and bowel: Numerous diverticula are identified. Appendix: No evidence of appendicitis. Intraperitoneal space: There is questionable mild haziness noted of mesentery. This is in the right side extending to the pelvis. This is indeterminate. Vasculature: Unremarkable. No abdominal aortic aneurysm. Lymph nodes: Unremarkable. No enlarged lymph nodes. Urinary bladder: Unremarkable as visualized. Reproductive: Unremarkable as visualized. Bones/joints: Unremarkable. No acute fracture. Soft tissues: Unremarkable. Other findings: Mild atelectatic changes scarring is seen in the right base. There is a small amount pelvic fluid questionably gynecological but indeterminate. IMPRESSION: 1. Cholelithiasis with fluid surrounding the gallbladder specifically between the gallbladder and liver. 2. Mild mesenteric haziness of unknown etiology or clinical significance. This could be a mild infectious or inflammatory process. 3. Chronic pancreatitis with small cystic appearing areas which are indeterminate within the pancreas. There is no evidence of pancreatic ductal dilatation. 4. Liver cyst. 5. Pelvic fluid. Electronically signed by: Mohit Garcia On 04/25/2020 10:53:26 AM
[2020-04-25] MEDS: ENOXAPARIN 40MG/0.4ML SYRINGE (J1650 PER 10MG) SC SCH (11:11)
--- NOTE | 2020-04-25 11:43 | REPVR ---
PROCEDURE INFORMATION: Exam: XR Lumbosacral Spine, 4 or 5 Views Exam date and time: 04/25/2020 8:37 AM Age: 79 years old Clinical indication: Low back pain; Additional info: Ls pain TECHNIQUE: Imaging protocol: XR of the lumbosacral spine, 4 or 5 views. COMPARISON: No relevant prior studies available. FINDINGS: Vertebrae: There is diffuse osteopenia. There is no fracture, dislocation or subluxation. Moderate joint space narrowing is seen at L5/S1. There appears to be possible 3 mm listhesis L5 posterior to S1. Soft tissues: Unremarkable. Organs: There are gallstones in the right upper quadrant. Vasculature: Calcifications seen in the left upper quadrant questionably pancreas versus splenic. IMPRESSION: 1. Osteopenia and listhesis. 2. Calcifications. Electronically signed by: Mohit Garcia On 04/25/2020 11:43:48 AM
[2020-04-25 14:00] VITALS: BP 156/77
[2020-04-25] MEDS: RAMELTEON 8 MG TAB (ROZEREM) PO SCH (20:54)
[2020-04-25] MEDS: DONEPEZIL 5 MG TAB PO SCH (20:54)
[2020-04-25] MEDS: **NOTE PATIENT COMMENT** MISC XX SCH (20:57)
[2020-04-25 22:00] VITALS: BP 153/78
[2020-04-26] VITALS (7 sets, daily range): BP systolic 140–158; BP diastolic 61–95
[2020-04-26 06:34] LABS: BASO % 0.6 % (0.0-1.0); EOS # 0.1 10^3/uL (0.0-0.5); EOS % 2.8 % (0.0-3.0); HEMATOCRIT 32.3 % (36.0-47.0); HEMOGLOBIN 10.8 g/dl (12.0-15.5); LYMPH # 1.2 10^3/uL (1.5-5.0); LYMPH % 32.4 % (24.0-44.0); MEAN CORPUSCULAR HEMOGLOBIN 30.7 pg (27.0-33.0); MEAN CORPUSCULAR HGB CONC 33.4 g/dl (32.0-36.5); MEAN CORPUSCULAR VOLUME 91.8 fl (80.0-96.0); MONO # 0.5 10^3/uL (0.0-0.8); MONO % 12.6 % (0.0-5.0); NEUTROPHILS # 1.8 10^3/uL (1.5-8.5); NEUTROPHILS % 51.3 % (36.0-66.0); PLATELET COUNT, AUTOMATED 168 10^3/uL (150-450); RED BLOOD COUNT 3.52 10^6/uL (4.00-5.40); WHITE BLOOD COUNT 3.6 10^3/uL (4.0-10.0)
[2020-04-26 06:59] LABS: ALBUMIN 2.7 GM/DL (3.2-5.2); ALT/SGPT 127 U/L (12-78); BLOOD UREA NITROGEN 5 MG/DL (7-18); CALCIUM LEVEL 7.8 MG/DL (8.8-10.2); CARBON DIOXIDE LEVEL 29 MEQ/L (21-32); CHLORIDE LEVEL 111 MEQ/L (98-107); CREATININE FOR GFR 0.55 MG/DL (0.55-1.30); GLOMERULAR FILTRATION RATE > 60.0 (>39); GLUCOSE, FASTING 110 MG/DL (70-100); LIPASE 93 U/L (73-393); POTASSIUM SERUM 3.4 MEQ/L (3.5-5.1); SODIUM LEVEL 144 MEQ/L (136-145); TOTAL PROTEIN 5.3 GM/DL (6.4-8.2)
[2020-04-26] MEDS ORDERED: POTASSIUM CHLORIDE 10 MEQ SR TABLET PO ONE (07:30)
[2020-04-26] MEDS: D5W/LR 1,000 ML IV SCH (07:30)
--- NOTE | 2020-04-26 08:14 | IPNPDOC ---
Date Seen The patient was seen on 04/26/20. Progress Note SUBJECTIVE: The patient was seen and examined at bedside this morning. No acute events overnight. Patient has advanced dementia, is disoriented, alert and oriented 1, person only. She denies any abdominal pain, dysuria. She denies nausea, vomiting. Back pain improved. She is lying in bed. OBJECTIVE PHYSICAL EXAMINATION: VITAL SIGNS: Please see below. General: frail, comfortable HEENT: PERRLA, EOMI, sclerae clear Neck: supple, normal ROM, no JVD Respiratory: lungs CTAB, no wheeze, no rales, no crackles CVS: RRR, normal S1, S2, no murmurs Abdo: thin, soft, no masses, no hepatosplenomegaly, BS+, no rebound tenderness Extremities: no edema, no cyanosis, pulses 2+, nail thickening. moving all 4 extremities. MSK: no joint deformities, normal ROM Neuro: no focal neuro deficits, moving all 4 extremities, CN2-12 intact. Strength 5/5 in all 4 extremities. No nystagmus. Psych: calm, cooperative, AAO x 1-2 LABORATORY DATA, IMAGING STUDIES, MICROBIOLOGY: Please see below. Lumbar XR: FINDINGS: Vertebrae: There is diffuse osteopenia. There is no fracture, dislocation or subluxation. Moderate joint space narrowing is seen at L5/S1. There appears to be possible 3 mm listhesis L5 posterior to S1. Soft tissues: Unremarkable. Organs: There are gallstones in the right upper quadrant. Vasculature: Calcifications seen in the left upper quadrant questionably pancreas versus splenic. IMPRESSION: 1. Osteopenia and listhesis. 2. Calcifications. CT abdo w iv contrast FINDINGS: Liver: The liver is moderately fatty enlarged 190 mm. There is a left lobe liver cyst at 21 mm. Gallbladder and bile ducts: There is cholelithiasis. There is a small amount of fluid around the gallbladder. Specifically between the liver and gallbladder. Common bile duct is dilated 9 mm correlating with the MRI. Pancreas: Numerous pancreas calcifications are identified. Small possible cystic areas are seen throughout the pancreas measuring to 3.3 mm. These are indeterminate. Spleen: Normal. No splenomegaly. Adrenals: Normal. No mass. Kidneys and ureters: Bilateral prominent extrarenal pelvises are identified. Stomach and bowel: Numerous diverticula are identified. Appendix: No evidence of appendicitis. Intraperitoneal space: There is questionable mild haziness noted of mesentery. This is in the right side extending to the pelvis. This is indeterminate. Vasculature: Unremarkable. No abdominal aortic aneurysm. Lymph nodes: Unremarkable. No enlarged lymph nodes. Urinary bladder: Unremarkable as visualized. Reproductive: Unremarkable as visualized. Bones/joints: Unremarkable. No acute fracture. Soft tissues: Unremarkable. Other findings: Mild atelectatic changes scarring is seen in the right base. There is a small amount pelvic fluid questionably gynecological but indeterminate. IMPRESSION: 1. Cholelithiasis with fluid surrounding the gallbladder specifically between the gallbladder and liver. 2. Mild mesenteric haziness of unknown etiology or clinical significance. This could be a mild infectious or inflammatory process. 3. Chronic pancreatitis with small cystic appearing areas which are indeterminate within the pancreas. There is no evidence of pancreatic ductal dilatation. 4. Liver cyst. 5. Pelvic fluid. DVT prophylaxis ordered?: Y, SCD, add lovenox ASSESSMENT AND PLAN: is a 79 yr old w a hx of Alzheimer's dementia who was transferred from [place] for management of suspected acute cholecystitis. Liver enzymes at [facility] seemed to be trending up. I reviewed charts from [place]. AST/ALT, 180/75 respectively at [place], now markedly increased. Gen. surgery, Dr. Castañeda was consulted. Concern for CBD stone. Patient's abdominal pain has resolved, possibly suggesting passage of CBD stone. MRCP on 04/24/20 showed cholelithiasis (10 stanes). CBD diam 9mm, no filling defect. Small cystic area throughout all aspects of pancreas, possibility of IPMN per read. Pending CT abdomen and pelvis with IV contrast to better characterize. Possibility of mass effect on ampulla/biliary tree. PROBLEMS: 1. Transaminitis: Concern for acute cholecystitis on transfer from [place]. Possible CBD stone. Afebrile. No WBC. MRCP showed cholelithiasis, CBD diameter 9mm. Cystic areas around pancreas concern for IPMN. CT abdo pelvis w IV contrast ordered. Dr. Castañeda consulted. Liver enzymes trending down. Discussed with Dr. Castañeda, possibility that a stone has passed. Plan for lap cholecystectomy. CT abdo with IV contrast revealed no mass effect on ampulla. Indeterminate cysts within the pancreased, no evidence of pancreatic duct dilation. Discussed with Dr. Moreno, further workup for suspicion of pancreatic mass would require an endoscopic US. Referral to specialist center can be arranged by PCP, pending discussion with family, as to further goals of care. I spoke to her daughter Yue this morning, and advised her of this. 2. Low back pain: bed to chair. Lidocaine patch. Obtain lumbar XR - joint space narrowing L5/S1, possible 3mm listhesis L5 posterior to S1. Back pain has improved. Check PVR. Moving all 4 extremities. Ambulating to bathroom. 3. Preoperative Assessment Her revised Cardiac Index to assess risk of MACE from surgery = 1 point, based on records from [facility] her BNP was <300 therefore no additional testing is needed prior to proceeding with surgery 4. Alzheimer's Dementia: patient is calm. resume rozeram, seroquel qhs. Donepezil 5 mg qhs. Previously had difficulties with elopement/behavioural issues. Sitter 1:1. 5. Hypoglycemia: resolved. DVT ppx: lovenox. Held pre-operative 04/26/20. Dispo: Will require PT evaluation to determine need for rehab vs return to home. VS, I&O, 24H, [facility] Vital Signs/I&O Vital Signs Date Time Temp Pulse Resp B/P (MAP) Pulse Ox O2 Delivery O2 Flow Rate FiO2 04/26/20 06:00 98.3 65 18 155/79 (104) 98 Room Air I&O- Last 24 Hours up to 6 AM 04/26/20 05:59 Intake Total 1490 ml Output Total 600 ml Balance 890 ml Laboratory Data 24H LABS Laboratory Tests 2 04/25/20 11:57: Bedside Glucose (Misc Panel) 105 04/25/20 16:11: Bedside Glucose (Misc Panel) 85 04/25/20 20:13: Bedside Glucose (Misc Panel) 135H 04/26/20 06:12: Immature Granulocyte % (Auto) 0.3, Neutrophils (%) (Auto) 51.3, Lymphocytes (%) (Auto) 32.4, Monocytes (%) (Auto) 12.6H, Eosinophils (%) (Auto) 2.8, Basophils (%) (Auto) 0.6, Neutrophils # (Auto) 1.8, Lymphocytes # (Auto) 1.2L, Monocytes # (Auto) 0.5, Eosinophils # (Auto) 0.1, Basophils # (Auto) 0.0, Nucleated Red Blood Cells % (auto) 0.0, Anion Gap 4L, Glomerular Filtration Rate > 60.0, Calcium Level 7.8L, Total Bilirubin 1.0, Aspartate Amino Transf (AST/SGOT) 78H, Alanine Aminotransferase (ALT/SGPT) 127H, Alkaline Phosphatase 96, Total Protein 5.3L, Albumin 2.7L, Albumin/Globulin Ratio 1.0L, Lipase 93 CBC/BMP Laboratory Tests 04/26/20 06:12 Microbiology Microbiology 04/24/20 Blood Culture - Preliminary, Resulted No Growth after 48 hours. All Specime... YANE JOHNS MD Apr 26, 2020 08:14
[2020-04-26] MEDS: LIDOCAINE 5% (LIDODERM) PATCH TD SCH (08:54)
[2020-04-26] MEDS: QUEtiapine FUMARATE 50 MG TAB PO SCH ×2 (08:55→20:32)
[2020-04-26] MEDS: amLODIPine 5 MG TAB PO SCH (08:56)
[2020-04-26] MEDS ORDERED: LIDOCAINE 2% 100MG/5ML SDV (FOR ANES.) As Ordered ONE (12:10)
[2020-04-26] MEDS ORDERED: ROCURONIUM BROMIDE 50 MG/5 ML VIAL As Ordered ONE ×2 (12:11→14:08)
[2020-04-26] MEDS ORDERED: fentaNYL 100 MCG/2 ML INJECTION (J3010) As Ordered ONE ×2 (12:12→14:07)
[2020-04-26] MEDS ORDERED: CONRAY-60 60% 50ML VIAL (Q9961) As Ordered ONE (12:46)
[2020-04-26] MEDS ORDERED: BUPIVACAINE/EPIN 0.25% 30 ML VIAL As Ordered ONE (12:46)
[2020-04-26] MEDS ORDERED: UNASYN 1.5 GM VIAL As Ordered ONE (13:23)
[2020-04-26] MEDS ORDERED: dexameTHASONE 4 MG/ML 1ML VIAL (J1100 PER 1MG) As Ordered ONE (14:08)
[2020-04-26] MEDS ORDERED: propofoL 200 MG/20 ML VIAL As Ordered ONE (14:08)
[2020-04-26] MEDS ORDERED: ACETAMINOPHEN 1000MG 100ML IV BTL (OFIRMEV) (J0131 PER 10MG) As Ordered ONE (14:08)
[2020-04-26] MEDS ORDERED: ONDANSETRON 4MG/2ML VIAL As Ordered ONE (14:08)
[2020-04-26] MEDS ORDERED: MORPHINE 2 MG/ML 1ML VIAL (J2270) IV PRN (14:30)
[2020-04-26] MEDS: AMPICILLIN SOD/SULBACTAM SOD 3 GM in D5W MINI-BAG PLUS 100 ML IV SCH (18:18)
[2020-04-26] MEDS ORDERED: ACETAMINOPH W/CODEINE #3 TAB UD PO PRN (19:30)
[2020-04-26] MEDS: DONEPEZIL 5 MG TAB PO SCH (20:32)
[2020-04-26] MEDS: ACETAMINOPHEN TAB 650MG DOSE (2X325MG) PO PRN (20:32)
[2020-04-26] MEDS: RAMELTEON 8 MG TAB (ROZEREM) PO SCH (20:32)
[2020-04-26] MEDS: **NOTE PATIENT COMMENT** MISC XX SCH (20:34)
[2020-04-27] MEDS: AMPICILLIN SOD/SULBACTAM SOD 3 GM in D5W MINI-BAG PLUS 100 ML IV SCH ×2 (00:17→06:22)
[2020-04-27 02:00] VITALS: BP 115/57
[2020-04-27 06:00] VITALS: BP 137/76
[2020-04-27] MEDS: ACETAMINOPHEN TAB 650MG DOSE (2X325MG) PO PRN (06:22)
[2020-04-27 06:33] LABS: BASO % 0.3 % (0.0-1.0); EOS % 0.5 % (0.0-3.0); HEMATOCRIT 37.4 % (36.0-47.0); HEMOGLOBIN 12.7 g/dl (12.0-15.5); LYMPH % 15.8 % (24.0-44.0); MEAN CORPUSCULAR HEMOGLOBIN 31.4 pg (27.0-33.0); MEAN CORPUSCULAR VOLUME 92.6 fl (80.0-96.0); MONO # 0.7 10^3/uL (0.0-0.8); NEUTROPHILS # 4.7 10^3/uL (1.5-8.5); NEUTROPHILS % 72.2 % (36.0-66.0); PLATELET COUNT, AUTOMATED 185 10^3/uL (150-450); RED BLOOD COUNT 4.04 10^6/uL (4.00-5.40); WHITE BLOOD COUNT 6.5 10^3/uL (4.0-10.0)
[2020-04-27 07:01] LABS: ALT/SGPT 102 U/L (12-78); BLOOD UREA NITROGEN 7 MG/DL (7-18); CALCIUM LEVEL 9.1 MG/DL (8.8-10.2); CARBON DIOXIDE LEVEL 27 MEQ/L (21-32); CHLORIDE LEVEL 110 MEQ/L (98-107); GLOMERULAR FILTRATION RATE > 60.0 (>39); GLUCOSE, FASTING 100 MG/DL (70-100); LIPASE 83 U/L (73-393); POTASSIUM SERUM 3.6 MEQ/L (3.5-5.1); SODIUM LEVEL 141 MEQ/L (136-145); TOTAL PROTEIN 6.1 GM/DL (6.4-8.2)
[2020-04-27] MEDS: LIDOCAINE 5% (LIDODERM) PATCH TD SCH (09:03)
[2020-04-27 09:04] VITALS: BP 148/74
[2020-04-27] MEDS: QUEtiapine FUMARATE 50 MG TAB PO SCH (09:04)
[2020-04-27] MEDS: amLODIPine 5 MG TAB PO SCH (09:04)
[2020-04-27] MEDS: ENOXAPARIN 40MG/0.4ML SYRINGE (J1650 PER 10MG) SC SCH (09:05)
[2020-04-27] MEDS ORDERED: ACET1TAB55 PO (11:56)
[2020-04-27] MEDS ORDERED: ARIC1TAB PO (11:56)
[2020-04-27] MEDS ORDERED: AMLO1TAB24 PO (11:56)
--- NOTE | 2020-04-27 19:10 | DS.PDOC ---
Discharge Summary General Date of Admission Apr 24, 2020 at 06:15 Date of Discharge 04/27/20 Attending Physician: Alana Ferraro MD Discharge Summary HISTORY OF PRESENT ILLNESS: This 79 yr old F has dementia and can't remember the details surrounding her transfer. Based on notes from [facility] she presented w c/o sharp, cramping 7/10 in severity non-radiating abdominal pain. At [facility] her vitals were wnl except for a BP of 170/68. Her CBC, CMP, lipase, trop, d-dimer, BNP, lactic acid, & UA were unremarkable except for a glucose of 156, Total Bili of 1.5, AST of 189 and ALT of 75. CT revealed a distended gallbladder w stones, edema, bile duct dilation suggestive of acute cholecystitis therefore she was transferred here for surgical evaluation. Prior to transfer she was given Rocephin. Patient was admitted for acute cholecystitis. HOSPITAL COURSE: Liver enzymes at [facility] seemed to be trending up. Gen. surgery, Dr. Castañeda was consulted. Concern for CBD stone. Patient's abdominal pain has resolved, possibly suggesting passage of CBD stone. MRCP on 04/24/20 showed cholelithiasis (10 stones). CBD diam 9mm, no filling defect. Small cystic area throughout all aspects of pancreas. Patient underwent laproscopic cholecystectomy on 04/26/10. Pain in abdomen, improvement in labs seen next AM. Patient tolerating diet postoperatively and did well with PT. Pancreatic mass ? see on CT along with questionable Chronic pancreatitis findings. Cystic areas around pancreas concern for IPMN (Intraductal papillary mucinous neoplasm). Prior hospitalist discussed with Dr. Moreno (GI), further workup for suspicion of pancreatic mass would require an endoscopic US. Referral to specialist center can be arranged by PCP, pending discussion with family, as to further goals of care. Dr. Duran spoke to her daughter Yue and advised her of this. On 04/27/20 patient was discharged back to prior living situation with f/u with both surgery and PCP. At time of discharge, patient denied chest pain, abdominal pain, n/v/d, fevers, chills. PAST MEDICAL/ SURGICAL HISTORY: Alzheimer's Dementia GERD Fibromyalgia Low back pain Hx of MDD w HI Knee surgery Left arm surgery Appendectomy Tension free vaginal repair w obturator approach to manage stress urinary incontinence SOCIAL HISTORY: Moved to the area from [place] in December with her Lives w daughter FAMILY HISTORY: unknown ALLERGIES: Please see below. DISCHARGE MEDICATIONS: Please see below. OBJECTIVE PHYSICAL EXAMINATION: VITAL SIGNS: Please see below. General: frail, comfortable HEENT: PERRLA, EOMI, sclerae clear Neck: supple, normal ROM, no JVD Respiratory: lungs CTAB, no wheeze, no rales, no crackles CVS: RRR, normal S1, S2, no murmurs Abdo: thin, soft, no masses, no hepatosplenomegaly, BS+, no rebound tenderness. Multiple clean incisions in the abdomen. Extremities: no edema, no cyanosis, pulses 2+, nail thickening. moving all 4 extremities. MSK: no joint deformities, normal ROM Neuro: no focal neuro deficits, moving all 4 extremities, CN2-12 intact. S trength 5/5 in all 4 extremities. No nystagmus. Psych: calm, cooperative, AAO x 1-2 LABORATORY DATA, IMAGING STUDIES, MICROBIOLOGY: Please see below. Lumbar XR: 1. Osteopenia and listhesis. 2. Calcifications. CT abd w iv contrast: 1. Cholelithiasis with fluid surrounding the gallbladder specifically between the gallbladder and liver. 2. Mild mesenteric haziness of unknown etiology or clinical significance. This could be a mild infectious or inflammatory process. 3. Chronic pancreatitis with small cystic appearing areas which are indeterminate within the pancreas. There is no evidence of pancreatic ductal dilatation. 4. Liver cyst. 5. Pelvic fluid. ASSESSMENT : is a 79 yr old with PMH above admitted and treated for abdominal pain likely 2/2 to acute cholecystitis vs. CBD stone, possible pancreatic mass. PLAN: #Abdominal pain likely to acute cholecystitis vs. CBD stone (likely already passed) -POD #1 laproscopic cholecystectomy -Resolved pain, transaminitis improved, tolerating diet well -F/u with surgery and PCP as o/p. #Pancreatic mass ?, ? Chronic pancreatitis findings on CT -Cystic areas around pancreas concern for IPMN (Intraductal papillary mucinous neoplasm ). -Prior hospitalist discussed with Dr. Moreno (GI), further workup for suspicion of pancreatic mass would require an endoscopic US. -Referral to specialist center can be arranged by PCP, pending discussion with family, as to further goals of care. -Dr. Duran spoke to her daughter Yue and advised her of this. #Low back pain, acute. -Resolved per patient -Lumbar XR - joint space narrowing L5/S1, possible 3mm listhesis L5 posterior to S1. -Did well with PT. Moving all 4 extremities. Ambulating to bathroom. -Tylenol PRN #Alzheimer's Dementia -At baseline -C/w home medications plus donepezil DISPOSITION: Discharge back to prior living situation today. TIME SPENT ON DISCHARGE: Greater than 30 minutes. Vital Signs/I&Os Vital Signs Date Time Temp Pulse Resp B/P (MAP) Pulse Ox O2 Delivery O2 Flow Rate FiO2 04/27/20 09:04 73 148/74 04/27/20 06:00 97.5 17 98 Room Air 04/26/20 14:55 2 I&O- Last 24 Hours up to 6 AM 04/27/20 06:00 Intake Total 2140 ml Output Total 400 ml Balance 1740 ml Laboratory Data Labs 24H Laboratory Tests 2 04/26/20 20:10: Bedside Glucose (Misc Panel) 172H 04/27/20 06:05: Immature Granulocyte % (Auto) 0.2, Neutrophils (%) (Auto) 72.2H, Lymphocytes (%) (Auto) 15.8L, Monocytes (%) (Auto) 11.0H, Eosinophils (%) (Auto) 0.5, Basophils (%) (Auto) 0.3, Neutrophils # (Auto) 4.7, Lymphocytes # (Auto) 1.0L, Monocytes # (Auto) 0.7, Eosinophils # (Auto) 0.0, Basophils # (Auto) 0.0, Nucleated Red Blood Cells % (auto) 0.0, Anion Gap 4L, Glomerular Filtration Rate > 60.0, Calcium Level 9.1#, Total Bilirubin 1.0, Aspartate Amino Transf (AST/SGOT) 49H, Alanine Aminotransferase (ALT/SGPT) 102H, Alkaline Phosphatase 91, Total Protein 6.1L, Albumin 3.0L, Albumin/Globulin Ratio 1.0L, Lipase 83 CBC/BMP Laboratory Tests 04/27/20 06:05 FSBS Laboratory Tests Test 04/26/20 20:10 Range/Units Bedside Glucose (Misc Panel) 172 83-110 MG/DL Microbiology Microbiology 04/24/20 Blood Culture - Preliminary, Resulted No Growth after 72 hours. All specime... Discharge Medications Scheduled Amlodipine Besylate (Amlodipine Besylate) 5 Mg Tablet, 5 MG PO DAILY Donepezil HCl (Aricept) 5 Mg Tablet, 5 MG PO QHS Quetiapine Fumarate (Quetiapine Fumarate) 50 Mg Tablet, 50 MG PO BID, (Reported) Ramelteon (Ramelteon) 8 Mg Tablet, 8 MG PO QHS, (Reported) Scheduled PRN Acetaminophen (Acetaminophen) 325 Mg Tablet, 650 MG PO Q8H PRN for MILD PAIN or TEMP > 100.4 Allergies Coded Allergies: No Known Allergies (Unverified , 01/12/20) Alana Ferraro MD Apr 27, 2020 19:10
--- NOTE | 2020-04-28 07:42 | CR ---
DATE OF CONSULTATION: 04/24/2020 BRIEF HISTORY OF PRESENT ILLNESS: Patient is a 79-year-old with severe dementia who was transferred from hospital with crampy epigastric pain radiating to her back. Her liver function tests were elevated at that time and she had gallstones and there was some bile duct dilatation and she was transferred here for surgical evaluation and possible cholecystitis. Her memory is such an issue/dementia is such an issue that she essentially has no recollection of abdominal pain but at this point has resolved her abdominal pain. PAST MEDICAL HISTORY: Significant for Alzheimers dementia, history of gastroesophageal reflux disease (GERD), history of fibromyalgia, history of low back pain, history of knee surgery, left arm surgery, appendectomy, bladder suspension. MEDICATIONS: Include: - quetiapine fumarate - ramelteon PHYSICAL EXAMINATION: Reveals a pleasant, 79-year-old female who looks stated age. HEENT: Unremarkable. Neck: Supple, no adenopathy. Lungs: Clear anteriorly. Heart: Regular. Abdomen: Soft, nontender, nondistended. IMPRESSION/PLAN: Patient has some increasing liver function tests (LFTs). An MRCP was ordered, has not been done as of yet. However, her symptoms are such that it sounds as though she probably passed a common bile duct stone. If this is the case and no common bile duct stones are appreciated and her liver function tests are significantly decreased tomorrow, then I would recommend proceeding with laparoscopic cholecystectomy prior to discharge. However, if her liver function tests are still elevated, then I would consider possibly ERCP. PATY
--- NOTE | 2020-04-28 07:46 | IPN ---
DATE: 04/25/2020 SUBJECTIVE: The patient still complains of no abdominal pain but her significant dementia issues are obvious and she does not recall any significant pain. She is complaining of some back pain however, and was the nurses are going to give her some Tylenol at this point. Otherwise on her physical exam abdomen is soft, nontender, nondistended. The MRCP did show that she had a common bile duct of 9 mm, but there was no evidence of an intraluminal defect. There are multiple small cystic areas through the pancreas and the concern was that there might be a small IPMN and recommended a CT of the abdomen and pelvis with IV contrast. IMPRESSION AND PLAN: The patient seems to have had some improvement. LFTs are a little bit better this morning, but I would have expected them to drop a little bit more should she had passed a stone. I would recommend obtaining this CAT scan to rule out any significant neoplasm near the ampulla and if that shows no significant abnormality and the duct does not seem increasingly dilated from yesterday on the CAT scan, then indeed this probably is just early on when we are seeing her LFTs dropping and if her CAT scan is negative for any significant abnormality in the head of the pancreas/near the ampulla, then I would recommend that we proceed with a laparoscopic cholecystectomy tomorrow. Otherwise if there is a significant abnormality in the pancreas, we may have GI consult/make recommendations or possibly perform an ERCP. PATY
--- NOTE | 2020-05-25 07:52 | RO ---
DATE OF OPERATION: 04/26/2020 PREOPERATIVE DIAGNOSIS: Acute cholecystitis. POSTOPERATIVE DIAGNOSIS: Acute cholecystitis. PROCEDURE: Laparoscopic cholecystectomy. SURGEON: Rad Castañeda M.D. ANESTHESIA: General endotracheal anesthesia. ESTIMATED BLOOD LOSS: Minimal. FLUIDS: Crystalloid. BRIEF PROCEDURE SUMMARY: The patient was brought to the operating room and was given general anesthesia. After adequate anesthesia and preoperative antibiotics were given, the patient was prepped and draped in the usual sterile fashion. Next, a supraumbilical incision was made with the skin knife. Blunt dissection was carried down to the fascia. Veress needle was placed into the abdominal cavity and insufflated to 15 mm of pressure. An epigastric and two lateral trocars were placed, and under direct visualization, the gallbladder was grasped, retracted superiorly. There were some adhesions of the omentum up against the gallbladder, which was taken down with hook cautery. Eventually, once this was mobilized, there was definitely a thickened and edematous gallbladder wall, which was opened up on the lateral aspect and then anteriorly and then medially, scoring the peritoneum as well. Once this was performed, the blunt dissection was performed laterally and then up against the back side of the gallbladder wall on the lateral aspect, down to the neck of the gallbladder, and down to the cystic duct area. Then, I was able to mobilize this same on the medial aspect using some blunt dissection and the endopeanuts and some hook cautery, and eventually, the cystic artery was well visualized. The cystic duct coming off of the neck of the gallbladder was well visualized. With the edema, it was a little more difficult to get a big window, but definitely a window behind the neck of the gallbladder creating a critical view of safety, and the cystic artery was clipped at this point and transected using electrocautery. The posterior aspect of the neck of the gallbladder/cystic duct was opened up a little bit further at this point. Then, the cystic duct was well visualized at this time, clipped proximally and distally, and transected. The gallbladder was removed from the gallbladder bed using electrocautery, placed in an EndoCatch bag, and brought out through the umbilicus. It was copiously irrigated until clear. All incisions were closed with 4-0 Vicryl after the umbilicus was closed with 0-Vicryl in the fascial layer. Steri-Strips and a dry sterile dressing were applied. The patient was awakened, extubated, and brought to the recovery room awake, alert, and hemodynamically stable. Sponge and needle counts were correct x2. MTDD
== END 2020-04-27 13:30 | disposition home or self-care (01) | DRG 419 ==
LOC: M ED 05:11 → M ED INP 06:15 → ENRESERV 07:33 → M MS5PR 08:05
PROVIDERS: ADMIT Internal Medicine; ATTEND Internal Medicine
PROC: 0FT44ZZ Resection of Gallbladder, Percutaneous Endoscopic Approach (ICD-10-PCS; principal; 2020-04-26 12:15)
DX: K80.62 Calculus of gallbladder and bile duct with acute cholecystitis without obstruction (principal); G30.9 Alzheimer's disease, unspecified; F02.80 Dementia in other diseases classified elsewhere, unspecified severity, without behavioral disturbance, psychotic disturbance, mood disturbance, and anxiety; K21.9 Gastro-esophageal reflux disease without esophagitis; M79.7 Fibromyalgia; M54.5 Low back pain; E16.2 Hypoglycemia, unspecified

== ENCOUNTER → 2020-08-05 | Outpatient (REF) | payer MEDICARE, OTHER ==
[~2020-08-05] MED LIST changes: +ACET1TAB55 PO; +AMLO1TAB24 PO; +ARIC1TAB PO; +QUET5TAB PO; +RAME8TAB2 PO
[2020-08-05 17:19] LABS: BASO % 1.2 % (0.0-1.0); EOS # 0.1 10^3/uL (0.0-0.5); EOS % 2.5 % (0.0-3.0); HEMATOCRIT 40.5 % (36.0-47.0); HEMOGLOBIN 13.3 g/dl (12.0-15.5); LYMPH % 30.8 % (24.0-44.0); MEAN CORPUSCULAR HEMOGLOBIN 31.1 pg (27.0-33.0); MEAN CORPUSCULAR HGB CONC 32.8 g/dl (32.0-36.5); MEAN CORPUSCULAR VOLUME 94.6 fl (80.0-96.0); MONO # 0.3 10^3/uL (0.0-0.8); NEUTROPHILS # 1.8 10^3/uL (1.5-8.5); NEUTROPHILS % 55.5 % (36.0-66.0); PLATELET COUNT, AUTOMATED 194 10^3/uL (150-450); RED BLOOD COUNT 4.28 10^6/uL (4.00-5.40); WHITE BLOOD COUNT 3.2 10^3/uL (4.0-10.0)
[2020-08-05 17:36] LABS: ALBUMIN 3.4 GM/DL (3.2-5.2); ALT/SGPT 18 U/L (12-78); BILIRUBIN,TOTAL 0.6 MG/DL (0.2-1.0); BLOOD UREA NITROGEN 9 MG/DL (7-18); CALCIUM LEVEL 8.9 MG/DL (8.8-10.2); CARBON DIOXIDE LEVEL 33 MEQ/L (21-32); CHLORIDE LEVEL 106 MEQ/L (98-107); CHOLESTEROL LEVEL 161 MG/DL (<200); CHOLESTEROL RISK RATIO 2.064 (<5); CREATININE FOR GFR 0.74 MG/DL (0.55-1.30); GLOMERULAR FILTRATION RATE > 60.0 (>39); GLUCOSE, FASTING 93 MG/DL (70-100); HDL CHOLESTEROL 78 MG/DL (>40); LDL CHOLESTEROL 71 MG/DL (<100); NON-HDL-C 83 MG/DL; POTASSIUM SERUM 5.1 MEQ/L (3.5-5.1); SODIUM LEVEL 140 MEQ/L (136-145); TOTAL PROTEIN 6.1 GM/DL (6.4-8.2); TRIGLYCERIDES LEVEL 59 MG/DL (<150)
== END ==
LOC: M LAB REF 16:00
PROVIDERS: ATTEND Physician Assistant
DX: G30.9 Alzheimer's disease, unspecified (principal); E78.5 Hyperlipidemia, unspecified

== ENCOUNTER → 2020-11-08 | Outpatient (REF) | payer MEDICARE, OTHER ==
[~2020-11-08] MED LIST changes: +QUET50TA3 PO; -QUET5TAB PO
[2020-11-08 17:56] LABS: ALBUMIN 3.6 GM/DL (3.2-5.2); ALT/SGPT 15 U/L (12-78); BILIRUBIN,TOTAL 0.9 MG/DL (0.2-1.0); BLOOD UREA NITROGEN 15 MG/DL (7-18); CALCIUM LEVEL 9.3 MG/DL (8.8-10.2); CARBON DIOXIDE LEVEL 31 MEQ/L (21-32); CHLORIDE LEVEL 105 MEQ/L (98-107); CHOLESTEROL LEVEL 168 MG/DL (<200); CHOLESTEROL RISK RATIO 2.074 (<5); GLOMERULAR FILTRATION RATE > 60.0 (>39); GLUCOSE, FASTING 184 MG/DL (70-100); HDL CHOLESTEROL 81 MG/DL (>40); LDL CHOLESTEROL 70 MG/DL (<100); NON-HDL-C 87 MG/DL; SODIUM LEVEL 140 MEQ/L (136-145); TOTAL PROTEIN 6.5 GM/DL (6.4-8.2); TRIGLYCERIDES LEVEL 86 MG/DL (<150)
== END ==
LOC: M LAB REF 15:39
PROVIDERS: ATTEND Family Medicine Addiction Medicine
DX: E78.2 Mixed hyperlipidemia (principal)

== ENCOUNTER → 2020-12-07 | Outpatient (REF) | payer MEDICARE, OTHER ==
[2020-12-07 18:28] LABS: HEMOGLOBIN A1c 5.2 %
== END ==
LOC: M LAB REF 15:56
PROVIDERS: ATTEND Pediatrics
DX: G30.9 Alzheimer's disease, unspecified (principal); R73.01 Impaired fasting glucose

== ENCOUNTER 2022-05-19 11:33 | Inpatient (IN) | payer MEDICARE, OTHER ==
[~2022-05-19] VITALS: Ht 165.1 cm; Wt 61.2 kg
[~2022-05-19 11:33] MED LIST changes: -QUET50TA3 PO; +QUET50TA4 PO
[2022-05-19] MEDS ORDERED: OLAN1TAB16 PO (12:01)
[2022-05-19] MEDS ORDERED: [UNRECOGNIZED DRUG - CODE] PO (12:01)
[2022-05-19 12:34] LABS: BASO % 0.6 % (0.0-1.0); EOS # 0.1 10^3/uL (0.0-0.5); EOS % 1.3 % (0.0-3.0); HEMATOCRIT 40.1 % (36.0-47.0); LYMPH # 1.2 10^3/uL (1.5-5.0); LYMPH % 16.7 % (24.0-44.0); MEAN CORPUSCULAR HEMOGLOBIN 30.2 pg (27.0-33.0); MEAN CORPUSCULAR HGB CONC 32.4 g/dl (32.0-36.5); MEAN CORPUSCULAR VOLUME 93.3 fl (80.0-96.0); MONO # 0.5 10^3/uL (0.0-0.8); MONO % 7.6 % (2.0-8.0); NEUTROPHILS # 5.1 10^3/uL (1.5-8.5); NEUTROPHILS % 73.7 % (36.0-66.0); PLATELET COUNT, AUTOMATED 218 10^3/uL (150-450); WHITE BLOOD COUNT 6.9 10^3/uL (4.0-10.0)
[2022-05-19 13:05] LABS: RSV AMPLIFICATION NEGATIVE (NEGATIVE)
[2022-05-19 13:22] LABS: CK-MB VALUE MASS 19.4 NG/ML (<3.6); MB/CK RELATIVE INDEX 9.8 (< OR =4)
[2022-05-19 13:28] LABS: ALBUMIN 2.9 GM/DL (3.2-5.2); ALKALINE PHOSPHATASE 67 U/L (45-117); ALT/SGPT 17 U/L (12-78); AST/SGOT 24 U/L (7-37); BILIRUBIN,DIRECT 0.2 MG/DL (0.0-0.2); BILIRUBIN,TOTAL 0.9 MG/DL (0.2-1.0); BLOOD UREA NITROGEN 7 MG/DL (7-18); CALCIUM LEVEL 8.4 MG/DL (8.8-10.2); CARBON DIOXIDE LEVEL 28 MEQ/L (21-32); CHLORIDE LEVEL 111 MEQ/L (98-107); CREATININE FOR GFR 0.56 MG/DL (0.55-1.30); GLOMERULAR FILTRATION RATE > 60.0 (>39); GLUCOSE, FASTING 101 MG/DL (70-100); POTASSIUM SERUM 4.5 MEQ/L (3.5-5.1); SODIUM LEVEL 144 MEQ/L (136-145)
[2022-05-19] MEDS ORDERED: NS 500 ML IV ONE (15:40)
[2022-05-19 17:40] LABS: APPEARANCE, URINE MANUAL CLOUDY (CLEAR); COLOR, URINE MANUAL YELLOW (YELLOW)
[2022-05-19 17:42] LABS: BILIRUBIN, URINE MANUAL NEGATIVE (NEGATIVE); BLOOD URINE MANUAL NEGATIVE (NEGATIVE); GLUCOSE, URINE (UA) MANUAL NEGATIVE (NEGATIVE); KETONE, URINE MANUAL 1+ mg/dL (NEGATIVE); LEUKOCYTE ESTERASE, URINE MAN NEGATIVE (NEGATIVE); NITRITE, URINE MANUAL NEGATIVE (NEGATIVE); PROTEIN, URINE MANUAL NEGATIVE (NEGATIVE); UROBILINOGEN, URINE MANUAL NORMAL (NORMAL)
[2022-05-19] MEDS ORDERED: HOME MED LIST COMPLETE! XX SCH (17:50)
[2022-05-19 17:54] LABS: AMORPHOUS SEDIMENT, URINE SMALL AMOUNT (NEGATIVE); BACTERIA, URINE SMALL AMOUNT; HYALINE CAST, URINE NONE SEEN /lpf (0-1); RBC, URINE NONE SEEN /hpf (0-3); SQUAMOUS EPITHELIAL CELL URINE SMALL AMOUNT /hpf (SMALL AMT)
[2022-05-19] MEDS ORDERED: FUROSEMIDE 20 MG TAB PO ONE (18:50)
[2022-05-19 20:39] LABS: INR 0.95; PARTIAL THROMBOPLASTIN TIME 26.6 SECONDS (24.8-34.2); PROTHROMBIN TIME 12.9 SECONDS (12.5-14.5)
[2022-05-19] MEDS: RAMELTEON 8 MG TAB (ROZEREM) PO SCH (21:43)
[2022-05-19] MEDS: OLANZapine 5 MG TAB PO SCH (21:43)
[2022-05-19 23:15] VITALS: BP 134/70
[2022-05-20 05:16] VITALS: BP 141/78
[2022-05-20 07:07] LABS: HEMATOCRIT 38.5 % (36.0-47.0); HEMOGLOBIN 12.8 g/dl (12.0-15.5); MEAN CORPUSCULAR HEMOGLOBIN 30.7 pg (27.0-33.0); MEAN CORPUSCULAR HGB CONC 33.2 g/dl (32.0-36.5); MEAN CORPUSCULAR VOLUME 92.3 fl (80.0-96.0); PLATELET COUNT, AUTOMATED 219 10^3/uL (150-450); RED BLOOD COUNT 4.17 10^6/uL (4.00-5.40); WHITE BLOOD COUNT 6.3 10^3/uL (4.0-10.0)
[2022-05-20 07:58] LABS: BLOOD UREA NITROGEN 6 MG/DL (7-18); CALCIUM LEVEL 8.7 MG/DL (8.8-10.2); CARBON DIOXIDE LEVEL 30 MEQ/L (21-32); CHLORIDE LEVEL 108 MEQ/L (98-107); CREATININE FOR GFR 0.51 MG/DL (0.55-1.30); GLOMERULAR FILTRATION RATE > 60.0 (>39); GLUCOSE, FASTING 97 MG/DL (70-100); MAGNESIUM LEVEL 2.1 MG/DL (1.8-2.4); POTASSIUM SERUM 3.5 MEQ/L (3.5-5.1); SODIUM LEVEL 140 MEQ/L (136-145)
[2022-05-20] MEDS: ENOXAPARIN 40MG/0.4ML SYRINGE (J1650 PER 10MG) SC SCH (09:26)
[2022-05-20] MEDS: OLANZapine 5 MG TAB PO SCH ×2 (09:26→20:34)
[2022-05-20] MEDS: ACETAMINOPHEN TAB 650MG DOSE (2X325MG) PO PRN (20:34)
[2022-05-20] MEDS: RAMELTEON 8 MG TAB (ROZEREM) PO SCH (20:34)
[2022-05-20 22:00] VITALS: BP 119/55
[2022-05-21 06:00] VITALS: BP 121/54
[2022-05-21] MEDS: OLANZapine 5 MG TAB PO SCH ×2 (09:11→20:41)
[2022-05-21] MEDS: ENOXAPARIN 40MG/0.4ML SYRINGE (J1650 PER 10MG) SC SCH (09:12)
[2022-05-21 14:00] VITALS: BP 139/66
[2022-05-21] MEDS: RAMELTEON 8 MG TAB (ROZEREM) PO SCH (20:41)
[2022-05-22 02:16] VITALS: BP 148/72
[2022-05-22] MEDS: OLANZapine 5 MG TAB PO SCH ×2 (08:57→20:29)
[2022-05-22] MEDS: ENOXAPARIN 40MG/0.4ML SYRINGE (J1650 PER 10MG) SC SCH (08:58)
[2022-05-22] MEDS: RAMELTEON 8 MG TAB (ROZEREM) PO SCH (20:29)
[2022-05-22] MEDS: ACETAMINOPHEN TAB 650MG DOSE (2X325MG) PO PRN (20:30)
[2022-05-23 05:10] VITALS: BP 131/65
[2022-05-23] MEDS: OLANZapine 5 MG TAB PO SCH ×2 (09:57→19:33)
[2022-05-23] MEDS: ENOXAPARIN 40MG/0.4ML SYRINGE (J1650 PER 10MG) SC SCH (09:58)
[2022-05-23] MEDS: RAMELTEON 8 MG TAB (ROZEREM) PO SCH (19:33)
[2022-05-23] MEDS: ACETAMINOPHEN TAB 650MG DOSE (2X325MG) PO PRN (19:33)
[2022-05-24 04:21] VITALS: BP 134/62
[2022-05-24] MEDS: OLANZapine 5 MG TAB PO SCH ×2 (09:27→19:20)
[2022-05-24] MEDS: ENOXAPARIN 40MG/0.4ML SYRINGE (J1650 PER 10MG) SC SCH (09:27)
[2022-05-24] MEDS: ACETAMINOPHEN TAB 650MG DOSE (2X325MG) PO PRN (19:20)
[2022-05-24] MEDS: RAMELTEON 8 MG TAB (ROZEREM) PO SCH (19:20)
[2022-05-25 04:44] VITALS: BP 130/64
[2022-05-25 08:42] VITALS: BP 125/65
[2022-05-25] MEDS: ACETAMINOPHEN TAB 650MG DOSE (2X325MG) PO PRN ×2 (09:03→20:15)
[2022-05-25] MEDS: OLANZapine 5 MG TAB PO SCH ×2 (09:04→20:15)
[2022-05-25] MEDS: ENOXAPARIN 40MG/0.4ML SYRINGE (J1650 PER 10MG) SC SCH (09:05)
[2022-05-25 13:13] VITALS: BP 131/75
[2022-05-25] MEDS: RAMELTEON 8 MG TAB (ROZEREM) PO SCH (20:15)
[2022-05-26 06:35] VITALS: BP 141/76
[2022-05-26] MEDS: OLANZapine 5 MG TAB PO SCH ×2 (09:33→19:34)
[2022-05-26] MEDS: ENOXAPARIN 40MG/0.4ML SYRINGE (J1650 PER 10MG) SC SCH (09:33)
[2022-05-26] MEDS: ACETAMINOPHEN TAB 650MG DOSE (2X325MG) PO PRN (19:34)
[2022-05-26] MEDS: RAMELTEON 8 MG TAB (ROZEREM) PO SCH (19:34)
[2022-05-27 05:48] VITALS: BP 141/75
[2022-05-27 07:29] LABS: BLOOD UREA NITROGEN 14 MG/DL (7-18); CALCIUM LEVEL 9.2 MG/DL (8.8-10.2); CARBON DIOXIDE LEVEL 29 MEQ/L (21-32); CHLORIDE LEVEL 107 MEQ/L (98-107); CREATININE FOR GFR 0.56 MG/DL (0.55-1.30); GLOMERULAR FILTRATION RATE > 60.0 (>39); GLUCOSE, FASTING 128 MG/DL (70-100); SODIUM LEVEL 142 MEQ/L (136-145)
[2022-05-27] MEDS: ENOXAPARIN 40MG/0.4ML SYRINGE (J1650 PER 10MG) SC SCH (08:33)
[2022-05-27] MEDS: OLANZapine 5 MG TAB PO SCH ×2 (08:33→20:28)
[2022-05-27] MEDS: RAMELTEON 8 MG TAB (ROZEREM) PO SCH (20:28)
[2022-05-27] MEDS: ACETAMINOPHEN TAB 650MG DOSE (2X325MG) PO PRN (20:28)
[2022-05-28 06:03] VITALS: BP 143/76
[2022-05-28] MEDS: OLANZapine 5 MG TAB PO SCH ×2 (08:55→19:56)
[2022-05-28] MEDS: ENOXAPARIN 40MG/0.4ML SYRINGE (J1650 PER 10MG) SC SCH (08:55)
[2022-05-28] MEDS: ACETAMINOPHEN TAB 650MG DOSE (2X325MG) PO PRN (08:55)
[2022-05-28] MEDS: RAMELTEON 8 MG TAB (ROZEREM) PO SCH (19:57)
[2022-05-29 05:56] VITALS: BP 148/60
[2022-05-29] MEDS: OLANZapine 5 MG TAB PO SCH ×2 (09:59→20:52)
[2022-05-29] MEDS: ENOXAPARIN 40MG/0.4ML SYRINGE (J1650 PER 10MG) SC SCH (10:00)
[2022-05-29] MEDS: RAMELTEON 8 MG TAB (ROZEREM) PO SCH (20:52)
[2022-05-30 06:00] VITALS: BP 142/95
[2022-05-30] MEDS: OLANZapine 5 MG TAB PO SCH ×3 (09:21→20:45)
[2022-05-30] MEDS: ENOXAPARIN 40MG/0.4ML SYRINGE (J1650 PER 10MG) SC SCH (09:21)
[2022-05-30] MEDS: RAMELTEON 8 MG TAB (ROZEREM) PO SCH ×2 (20:32→20:45)
[2022-05-30] MEDS: ACETAMINOPHEN TAB 650MG DOSE (2X325MG) PO PRN (20:33)
[2022-05-31 06:00] VITALS: BP 136/93
[2022-05-31] MEDS: ENOXAPARIN 40MG/0.4ML SYRINGE (J1650 PER 10MG) SC SCH (09:07)
[2022-05-31] MEDS: OLANZapine 5 MG TAB PO SCH ×2 (09:07→20:00)
[2022-05-31] MEDS: RAMELTEON 8 MG TAB (ROZEREM) PO SCH (19:59)
[2022-05-31] MEDS: ACETAMINOPHEN TAB 650MG DOSE (2X325MG) PO PRN (19:59)
[2022-06-01 05:00] VITALS: BP 138/90
[2022-06-01 08:12] VITALS: BP 122/78
[2022-06-01] MEDS: OLANZapine 5 MG TAB PO SCH ×2 (09:05→20:21)
[2022-06-01] MEDS: ENOXAPARIN 40MG/0.4ML SYRINGE (J1650 PER 10MG) SC SCH (09:05)
[2022-06-01 14:23] VITALS: BP 122/84
[2022-06-01] MEDS: RAMELTEON 8 MG TAB (ROZEREM) PO SCH (20:22)
[2022-06-02 06:00] VITALS: BP 142/82
[2022-06-02] MEDS: ENOXAPARIN 40MG/0.4ML SYRINGE (J1650 PER 10MG) SC SCH (09:59)
[2022-06-02] MEDS: OLANZapine 5 MG TAB PO SCH ×2 (09:59→20:33)
[2022-06-02] MEDS: RAMELTEON 8 MG TAB (ROZEREM) PO SCH (20:33)
[2022-06-02] MEDS: CEFDINIR 300 MG CAP (OMNICEF) PO SCH (20:33)
[2022-06-03 06:00] VITALS: BP 135/75
[2022-06-03] MEDS: ACETAMINOPHEN TAB 650MG DOSE (2X325MG) PO PRN (09:41)
[2022-06-03] MEDS: OLANZapine 5 MG TAB PO SCH ×2 (09:41→20:23)
[2022-06-03] MEDS: CEFDINIR 300 MG CAP (OMNICEF) PO SCH ×2 (09:41→20:23)
[2022-06-03] MEDS: ENOXAPARIN 40MG/0.4ML SYRINGE (J1650 PER 10MG) SC SCH (09:42)
[2022-06-03] MEDS: RAMELTEON 8 MG TAB (ROZEREM) PO SCH (20:23)
[2022-06-04 06:00] VITALS: BP 143/84
[2022-06-04] MEDS: CEFDINIR 300 MG CAP (OMNICEF) PO SCH ×2 (08:24→20:11)
[2022-06-04] MEDS: ENOXAPARIN 40MG/0.4ML SYRINGE (J1650 PER 10MG) SC SCH (08:25)
[2022-06-04] MEDS: OLANZapine 5 MG TAB PO SCH ×2 (08:25→20:11)
[2022-06-04] MEDS: ACETAMINOPHEN TAB 650MG DOSE (2X325MG) PO PRN (20:11)
[2022-06-04] MEDS: RAMELTEON 8 MG TAB (ROZEREM) PO SCH (20:11)
[2022-06-05 06:00] VITALS: BP 127/73
[2022-06-05] MEDS: ENOXAPARIN 40MG/0.4ML SYRINGE (J1650 PER 10MG) SC SCH (09:23)
[2022-06-05] MEDS: OLANZapine 5 MG TAB PO SCH ×2 (09:23→19:38)
[2022-06-05] MEDS: CEFDINIR 300 MG CAP (OMNICEF) PO SCH ×2 (09:23→19:38)
[2022-06-05] MEDS: RAMELTEON 8 MG TAB (ROZEREM) PO SCH (19:38)
[2022-06-05] MEDS: ACETAMINOPHEN TAB 650MG DOSE (2X325MG) PO PRN (19:38)
[2022-06-06 06:00] VITALS: BP 129/69
[2022-06-06] MEDS: CEFDINIR 300 MG CAP (OMNICEF) PO SCH ×2 (08:44→19:52)
[2022-06-06] MEDS: ENOXAPARIN 40MG/0.4ML SYRINGE (J1650 PER 10MG) SC SCH (08:44)
[2022-06-06] MEDS: OLANZapine 5 MG TAB PO SCH ×2 (08:44→19:52)
[2022-06-06] MEDS: RAMELTEON 8 MG TAB (ROZEREM) PO SCH (19:52)
[2022-06-06] MEDS: ACETAMINOPHEN TAB 650MG DOSE (2X325MG) PO PRN (19:52)
[2022-06-07 06:00] VITALS: BP 146/90
[2022-06-07] MEDS: CEFDINIR 300 MG CAP (OMNICEF) PO SCH ×2 (09:38→20:08)
[2022-06-07] MEDS: OLANZapine 5 MG TAB PO SCH ×2 (09:38→20:08)
[2022-06-07] MEDS: ENOXAPARIN 40MG/0.4ML SYRINGE (J1650 PER 10MG) SC SCH (09:39)
[2022-06-07] MEDS: RAMELTEON 8 MG TAB (ROZEREM) PO SCH (20:08)
[2022-06-08] VITALS: BP 138/84
[2022-06-08] MEDS: OLANZapine 5 MG TAB PO SCH ×2 (09:30→20:49)
[2022-06-08] MEDS: ENOXAPARIN 40MG/0.4ML SYRINGE (J1650 PER 10MG) SC SCH (09:30)
[2022-06-08] MEDS: SENOKOT S TAB PO PRN (14:28)
[2022-06-08] MEDS: RAMELTEON 8 MG TAB (ROZEREM) PO SCH (20:49)
[2022-06-09 06:26] VITALS: BP 141/73
[2022-06-09] MEDS: OLANZapine 5 MG TAB PO SCH ×2 (09:20→20:08)
[2022-06-09] MEDS: ENOXAPARIN 40MG/0.4ML SYRINGE (J1650 PER 10MG) SC SCH (09:20)
[2022-06-09] MEDS: ACETAMINOPHEN TAB 650MG DOSE (2X325MG) PO PRN (20:08)
[2022-06-09] MEDS: RAMELTEON 8 MG TAB (ROZEREM) PO SCH (20:08)
[2022-06-10 06:23] VITALS: BP 138/72
[2022-06-10] MEDS: ENOXAPARIN 40MG/0.4ML SYRINGE (J1650 PER 10MG) SC SCH (08:09)
[2022-06-10] MEDS: OLANZapine 5 MG TAB PO SCH ×2 (08:09→20:03)
[2022-06-10] MEDS: RAMELTEON 8 MG TAB (ROZEREM) PO SCH (20:03)
[2022-06-10] MEDS: ACETAMINOPHEN TAB 650MG DOSE (2X325MG) PO PRN (20:03)
[2022-06-10] MEDS: SENOKOT S TAB PO PRN (20:03)
[2022-06-10] MEDS: MIRALAX *UNIT DOSE* 17GM PACKET PO PRN (20:03)
[2022-06-11 06:08] VITALS: BP_SYST 131; BP_SYST 71; BP_DIAS 72
[2022-06-11] MEDS: ACETAMINOPHEN TAB 650MG DOSE (2X325MG) PO PRN ×2 (06:16→19:41)
[2022-06-11] MEDS: OLANZapine 5 MG TAB PO SCH ×2 (09:44→19:40)
[2022-06-11] MEDS: ENOXAPARIN 40MG/0.4ML SYRINGE (J1650 PER 10MG) SC SCH (09:44)
[2022-06-11] MEDS: RAMELTEON 8 MG TAB (ROZEREM) PO SCH (19:40)
[2022-06-11] MEDS: SENOKOT S TAB PO PRN (19:41)
[2022-06-12 05:49] VITALS: BP 129/70
[2022-06-12] MEDS: ENOXAPARIN 40MG/0.4ML SYRINGE (J1650 PER 10MG) SC SCH (08:39)
[2022-06-12] MEDS: MIRALAX *UNIT DOSE* 17GM PACKET PO PRN (08:39)
[2022-06-12] MEDS: OLANZapine 5 MG TAB PO SCH ×2 (08:39→20:12)
[2022-06-12] MEDS: ACETAMINOPHEN TAB 650MG DOSE (2X325MG) PO PRN (20:12)
[2022-06-12] MEDS: RAMELTEON 8 MG TAB (ROZEREM) PO SCH (20:12)
[2022-06-13] MEDS: OLANZapine 5 MG TAB PO SCH ×2 (09:34→20:40)
[2022-06-13] MEDS: ENOXAPARIN 40MG/0.4ML SYRINGE (J1650 PER 10MG) SC SCH (09:35)
[2022-06-13] MEDS: RAMELTEON 8 MG TAB (ROZEREM) PO SCH (20:40)
[2022-06-14 05:37] VITALS: BP 138/74
[2022-06-14] MEDS: OLANZapine 5 MG TAB PO SCH ×2 (10:01→22:06)
[2022-06-14] MEDS: ENOXAPARIN 40MG/0.4ML SYRINGE (J1650 PER 10MG) SC SCH (10:02)
[2022-06-14] MEDS: DIMETHICONE 2% OINTMENT(VANICREAM) 70GM TUBE TOP SCH (22:06)
[2022-06-14] MEDS: RAMELTEON 8 MG TAB (ROZEREM) PO SCH (22:06)
[2022-06-14] MEDS: ACETAMINOPHEN TAB 650MG DOSE (2X325MG) PO PRN (22:06)
[2022-06-15 06:14] LABS: BASO # 0.1 10^3/uL (0.0-0.2); BASO % 0.7 % (0.0-1.0); EOS # 0.2 10^3/uL (0.0-0.5); EOS % 2.9 % (0.0-3.0); HEMOGLOBIN 14.2 g/dl (12.0-15.5); LYMPH # 1.9 10^3/uL (1.5-5.0); LYMPH % 23.2 % (24.0-44.0); MEAN CORPUSCULAR HEMOGLOBIN 32.1 pg (27.0-33.0); MEAN CORPUSCULAR HGB CONC 34.6 g/dl (32.0-36.5); MEAN CORPUSCULAR VOLUME 92.6 fl (80.0-96.0); MONO # 0.8 10^3/uL (0.0-0.8); MONO % 9.1 % (2.0-8.0); NEUTROPHILS # 5.2 10^3/uL (1.5-8.5); NEUTROPHILS % 63.9 % (36.0-66.0); PLATELET COUNT, AUTOMATED 298 10^3/uL (150-450); RED BLOOD COUNT 4.43 10^6/uL (4.00-5.40); WHITE BLOOD COUNT 8.2 10^3/uL (4.0-10.0)
[2022-06-15 06:34] VITALS: BP 143/71
[2022-06-15 07:01] LABS: BLOOD UREA NITROGEN 16 MG/DL (9-23); CALCIUM LEVEL 9.4 MG/DL (8.3-10.6); CARBON DIOXIDE LEVEL 27 MMOL/L (20-31); CHLORIDE LEVEL 105 MMOL/L (98-107); CREATININE FOR GFR 0.65 MG/DL (0.55-1.30); GLOMERULAR FILTRATION RATE > 60.0 (>39); GLUCOSE, FASTING 121 MG/DL (74-106); POTASSIUM SERUM 4.2 MMOL/L (3.5-5.1); SODIUM LEVEL 142 MMOL/L (136-145)
[2022-06-15] MEDS: MOM 30ML SUSPENSION UDC PO PRN (09:41)
[2022-06-15] MEDS: DIMETHICONE 2% OINTMENT(VANICREAM) 70GM TUBE TOP SCH ×2 (09:41→20:07)
[2022-06-15] MEDS: ENOXAPARIN 40MG/0.4ML SYRINGE (J1650 PER 10MG) SC SCH (09:41)
[2022-06-15] MEDS: OLANZapine 5 MG TAB PO SCH ×2 (09:42→20:07)
[2022-06-15] MEDS: SENOKOT S TAB PO PRN (20:07)
[2022-06-15] MEDS: RAMELTEON 8 MG TAB (ROZEREM) PO SCH (20:07)
[2022-06-16 06:00] VITALS: BP 136/73
[2022-06-16] MEDS: OLANZapine 5 MG TAB PO SCH ×2 (08:33→20:01)
[2022-06-16] MEDS: ENOXAPARIN 40MG/0.4ML SYRINGE (J1650 PER 10MG) SC SCH (08:34)
[2022-06-16] MEDS: DIMETHICONE 2% OINTMENT(VANICREAM) 70GM TUBE TOP SCH ×2 (08:35→20:01)
[2022-06-16] MEDS: RAMELTEON 8 MG TAB (ROZEREM) PO SCH (20:01)
[2022-06-17 06:00] VITALS: BP 136/70
[2022-06-17] MEDS: ENOXAPARIN 40MG/0.4ML SYRINGE (J1650 PER 10MG) SC SCH (09:11)
[2022-06-17] MEDS: OLANZapine 5 MG TAB PO SCH ×2 (09:11→19:58)
[2022-06-17] MEDS: MIRALAX *UNIT DOSE* 17GM PACKET PO PRN (09:11)
[2022-06-17] MEDS: MOM 30ML SUSPENSION UDC PO PRN (09:11)
[2022-06-17] MEDS: ACETAMINOPHEN TAB 650MG DOSE (2X325MG) PO PRN ×2 (09:11→23:20)
[2022-06-17] MEDS: DIMETHICONE 2% OINTMENT(VANICREAM) 70GM TUBE TOP SCH ×2 (09:12→19:59)
[2022-06-17] MEDS: SENOKOT S TAB PO PRN (09:12)
[2022-06-17] MEDS: RAMELTEON 8 MG TAB (ROZEREM) PO SCH (19:58)
[2022-06-18 06:00] VITALS: BP 135/73
[2022-06-18] MEDS: OLANZapine 5 MG TAB PO SCH ×2 (09:45→21:32)
[2022-06-18] MEDS: ENOXAPARIN 40MG/0.4ML SYRINGE (J1650 PER 10MG) SC SCH (09:45)
[2022-06-18] MEDS: DIMETHICONE 2% OINTMENT(VANICREAM) 70GM TUBE TOP SCH ×2 (09:45→20:10)
[2022-06-18] MEDS: ACETAMINOPHEN TAB 650MG DOSE (2X325MG) PO PRN (20:10)
[2022-06-18] MEDS: RAMELTEON 8 MG TAB (ROZEREM) PO SCH (20:10)
[2022-06-19 06:00] VITALS: BP 136/71
[2022-06-19] MEDS: OLANZapine 5 MG TAB PO SCH ×2 (09:09→19:31)
[2022-06-19] MEDS: DIMETHICONE 2% OINTMENT(VANICREAM) 70GM TUBE TOP SCH ×2 (09:10→19:31)
[2022-06-19] MEDS: ENOXAPARIN 40MG/0.4ML SYRINGE (J1650 PER 10MG) SC SCH (09:10)
[2022-06-19] MEDS: RAMELTEON 8 MG TAB (ROZEREM) PO SCH (19:31)
[2022-06-19] MEDS: ACETAMINOPHEN TAB 650MG DOSE (2X325MG) PO PRN (19:32)
[2022-06-20 05:06] VITALS: BP 146/76
[2022-06-20] MEDS: ACETAMINOPHEN TAB 650MG DOSE (2X325MG) PO PRN ×2 (06:28→19:49)
[2022-06-20] MEDS: SENOKOT S TAB PO PRN (09:49)
[2022-06-20] MEDS: OLANZapine 5 MG TAB PO SCH ×2 (09:49→19:49)
[2022-06-20] MEDS: DIMETHICONE 2% OINTMENT(VANICREAM) 70GM TUBE TOP SCH ×2 (09:50→19:50)
[2022-06-20] MEDS: ENOXAPARIN 40MG/0.4ML SYRINGE (J1650 PER 10MG) SC SCH (09:50)
[2022-06-20] MEDS: RAMELTEON 8 MG TAB (ROZEREM) PO SCH (19:49)
[2022-06-21] MEDS: ACETAMINOPHEN TAB 650MG DOSE (2X325MG) PO PRN ×2 (05:47→23:27)
[2022-06-21 06:00] VITALS: BP 147/76
[2022-06-21 08:30] VITALS: BP 145/71
[2022-06-21] MEDS: OLANZapine 5 MG TAB PO SCH ×2 (08:41→22:32)
[2022-06-21] MEDS: ENOXAPARIN 40MG/0.4ML SYRINGE (J1650 PER 10MG) SC SCH (08:42)
[2022-06-21] MEDS: DIMETHICONE 2% OINTMENT(VANICREAM) 70GM TUBE TOP SCH ×2 (08:43→22:33)
[2022-06-21] MEDS: RAMELTEON 8 MG TAB (ROZEREM) PO SCH (22:32)
[2022-06-22 06:00] VITALS: BP 113/59
[2022-06-22] MEDS: OLANZapine 5 MG TAB PO SCH ×2 (09:10→20:57)
[2022-06-22] MEDS: DIMETHICONE 2% OINTMENT(VANICREAM) 70GM TUBE TOP SCH ×2 (09:10→20:58)
[2022-06-22] MEDS: ENOXAPARIN 40MG/0.4ML SYRINGE (J1650 PER 10MG) SC SCH (09:53)
[2022-06-22] MEDS: RAMELTEON 8 MG TAB (ROZEREM) PO SCH (20:58)
[2022-06-22] MEDS: ACETAMINOPHEN TAB 650MG DOSE (2X325MG) PO PRN (20:58)
[2022-06-23 06:23] VITALS: BP 132/75
[2022-06-23] MEDS: OLANZapine 5 MG TAB PO SCH ×2 (09:49→19:33)
[2022-06-23] MEDS: DIMETHICONE 2% OINTMENT(VANICREAM) 70GM TUBE TOP SCH ×2 (09:50→19:33)
[2022-06-23] MEDS: ENOXAPARIN 40MG/0.4ML SYRINGE (J1650 PER 10MG) SC SCH (09:50)
[2022-06-23] MEDS: SENOKOT S TAB PO PRN (19:32)
[2022-06-23] MEDS: ACETAMINOPHEN TAB 650MG DOSE (2X325MG) PO PRN (19:33)
[2022-06-23] MEDS: RAMELTEON 8 MG TAB (ROZEREM) PO SCH (19:33)
[2022-06-24] MEDS: ACETAMINOPHEN TAB 650MG DOSE (2X325MG) PO PRN ×3 (05:05→19:22)
[2022-06-24 06:00] VITALS: BP 136/76
[2022-06-24] MEDS: ENOXAPARIN 40MG/0.4ML SYRINGE (J1650 PER 10MG) SC SCH (09:43)
[2022-06-24] MEDS: DIMETHICONE 2% OINTMENT(VANICREAM) 70GM TUBE TOP SCH ×2 (09:43→19:22)
[2022-06-24] MEDS: OLANZapine 5 MG TAB PO SCH ×2 (09:43→19:21)
[2022-06-24] MEDS: SENOKOT S TAB PO PRN (15:21)
[2022-06-24] MEDS: RAMELTEON 8 MG TAB (ROZEREM) PO SCH (19:22)
[2022-06-24] MEDS: SENOKOT S TAB PO SCH (19:22)
[2022-06-25] MEDS: ACETAMINOPHEN TAB 650MG DOSE (2X325MG) PO PRN ×2 (05:20→19:19)
[2022-06-25 06:00] VITALS: BP 129/73
[2022-06-25] MEDS: SENOKOT S TAB PO SCH ×2 (08:42→19:20)
[2022-06-25] MEDS: DIMETHICONE 2% OINTMENT(VANICREAM) 70GM TUBE TOP SCH ×2 (08:42→19:20)
[2022-06-25] MEDS: OLANZapine 5 MG TAB PO SCH ×2 (08:42→19:19)
[2022-06-25] MEDS: ENOXAPARIN 40MG/0.4ML SYRINGE (J1650 PER 10MG) SC SCH (08:42)
[2022-06-25] MEDS: MIRALAX *UNIT DOSE* 17GM PACKET PO PRN (19:19)
[2022-06-25] MEDS: RAMELTEON 8 MG TAB (ROZEREM) PO SCH (19:19)
[2022-06-26 05:50] VITALS: BP 128/59
[2022-06-26] MEDS: OLANZapine 5 MG TAB PO SCH ×2 (07:58→20:12)
[2022-06-26] MEDS: MOM 30ML SUSPENSION UDC PO PRN (07:58)
[2022-06-26] MEDS: SENOKOT S TAB PO SCH ×2 (07:58→20:12)
[2022-06-26] MEDS: ENOXAPARIN 40MG/0.4ML SYRINGE (J1650 PER 10MG) SC SCH (07:58)
[2022-06-26] MEDS: DIMETHICONE 2% OINTMENT(VANICREAM) 70GM TUBE TOP SCH ×2 (07:58→20:12)
[2022-06-26] MEDS: RAMELTEON 8 MG TAB (ROZEREM) PO SCH (20:12)
[2022-06-27 05:52] VITALS: BP 133/66
[2022-06-27] MEDS: OLANZapine 5 MG TAB PO SCH ×2 (08:29→20:18)
[2022-06-27] MEDS: SENOKOT S TAB PO SCH ×2 (08:29→20:17)
[2022-06-27] MEDS: ENOXAPARIN 40MG/0.4ML SYRINGE (J1650 PER 10MG) SC SCH (08:29)
[2022-06-27] MEDS: DIMETHICONE 2% OINTMENT(VANICREAM) 70GM TUBE TOP SCH ×2 (08:30→20:19)
[2022-06-27] MEDS: ACETAMINOPHEN TAB 650MG DOSE (2X325MG) PO PRN (20:18)
[2022-06-27] MEDS: RAMELTEON 8 MG TAB (ROZEREM) PO SCH (20:18)
[2022-06-28 06:00] VITALS: BP 148/71
[2022-06-28] MEDS: SENOKOT S TAB PO SCH ×2 (08:16→19:26)
[2022-06-28] MEDS: OLANZapine 5 MG TAB PO SCH ×2 (08:16→19:27)
[2022-06-28] MEDS: ENOXAPARIN 40MG/0.4ML SYRINGE (J1650 PER 10MG) SC SCH (08:17)
[2022-06-28] MEDS: DIMETHICONE 2% OINTMENT(VANICREAM) 70GM TUBE TOP SCH ×2 (08:17→19:27)
[2022-06-28] MEDS: RAMELTEON 8 MG TAB (ROZEREM) PO SCH (19:26)
[2022-06-28] MEDS: ACETAMINOPHEN TAB 650MG DOSE (2X325MG) PO PRN (19:27)
[2022-06-29 06:00] VITALS: BP 146/71
[2022-06-29] MEDS: OLANZapine 5 MG TAB PO SCH ×2 (09:57→19:33)
[2022-06-29] MEDS: SENOKOT S TAB PO SCH ×2 (09:57→19:32)
[2022-06-29] MEDS: DIMETHICONE 2% OINTMENT(VANICREAM) 70GM TUBE TOP SCH ×2 (09:58→19:33)
[2022-06-29] MEDS: ENOXAPARIN 40MG/0.4ML SYRINGE (J1650 PER 10MG) SC SCH (09:58)
[2022-06-29] MEDS: ACETAMINOPHEN TAB 650MG DOSE (2X325MG) PO PRN (19:33)
[2022-06-29] MEDS: RAMELTEON 8 MG TAB (ROZEREM) PO SCH (19:33)
[2022-06-30] MEDS: ACETAMINOPHEN TAB 650MG DOSE (2X325MG) PO PRN ×2 (00:47→20:01)
[2022-06-30 06:50] VITALS: BP 134/60
[2022-06-30] MEDS: ENOXAPARIN 40MG/0.4ML SYRINGE (J1650 PER 10MG) SC SCH ×2 (09:00→09:24)
[2022-06-30] MEDS: SENOKOT S TAB PO SCH ×2 (09:24→20:01)
[2022-06-30] MEDS: OLANZapine 5 MG TAB PO SCH ×2 (09:24→20:01)
[2022-06-30] MEDS: DIMETHICONE 2% OINTMENT(VANICREAM) 70GM TUBE TOP SCH ×2 (09:25→20:02)
[2022-06-30] MEDS: RAMELTEON 8 MG TAB (ROZEREM) PO SCH (20:01)
[2022-07-01] MEDS: ACETAMINOPHEN TAB 650MG DOSE (2X325MG) PO PRN ×2 (04:40→21:03)
[2022-07-01 06:00] VITALS: BP 127/60
[2022-07-01] MEDS: OLANZapine 5 MG TAB PO SCH ×2 (08:55→21:03)
[2022-07-01] MEDS: SENOKOT S TAB PO SCH ×2 (08:55→21:03)
[2022-07-01] MEDS: ENOXAPARIN 40MG/0.4ML SYRINGE (J1650 PER 10MG) SC SCH (08:56)
[2022-07-01] MEDS: DIMETHICONE 2% OINTMENT(VANICREAM) 70GM TUBE TOP SCH ×2 (08:57→21:03)
[2022-07-01] MEDS: RAMELTEON 8 MG TAB (ROZEREM) PO SCH (21:02)
[2022-07-02 06:00] VITALS: BP 129/77
[2022-07-02] MEDS: ENOXAPARIN 40MG/0.4ML SYRINGE (J1650 PER 10MG) SC SCH (08:47)
[2022-07-02] MEDS: OLANZapine 5 MG TAB PO SCH ×2 (08:47→20:13)
[2022-07-02] MEDS: SENOKOT S TAB PO SCH ×2 (08:47→20:14)
[2022-07-02] MEDS: DIMETHICONE 2% OINTMENT(VANICREAM) 70GM TUBE TOP SCH ×2 (08:48→20:14)
[2022-07-02] MEDS: RAMELTEON 8 MG TAB (ROZEREM) PO SCH (20:13)
[2022-07-02] MEDS: ACETAMINOPHEN TAB 650MG DOSE (2X325MG) PO PRN (20:14)
[2022-07-03 06:00] VITALS: BP 132/78
[2022-07-03 08:11] LABS: BASO # 0.1 10^3/uL (0.0-0.2); BASO % 0.6 % (0.0-1.0); EOS # 0.1 10^3/uL (0.0-0.5); EOS % 1.8 % (0.0-3.0); HEMATOCRIT 40.9 % (36.0-47.0); HEMOGLOBIN 13.3 g/dl (12.0-15.5); LYMPH % 12.2 % (24.0-44.0); MEAN CORPUSCULAR HEMOGLOBIN 30.5 pg (27.0-33.0); MEAN CORPUSCULAR HGB CONC 32.5 g/dl (32.0-36.5); MEAN CORPUSCULAR VOLUME 93.8 fl (80.0-96.0); MONO # 0.7 10^3/uL (0.0-0.8); MONO % 9.4 % (2.0-8.0); NEUTROPHILS % 75.7 % (36.0-66.0); PLATELET COUNT, AUTOMATED 267 10^3/uL (150-450); RED BLOOD COUNT 4.36 10^6/uL (4.00-5.40); WHITE BLOOD COUNT 7.9 10^3/uL (4.0-10.0)
[2022-07-03] MEDS: MIRALAX *UNIT DOSE* 17GM PACKET PO PRN (09:52)
[2022-07-03] MEDS: ENOXAPARIN 40MG/0.4ML SYRINGE (J1650 PER 10MG) SC SCH (09:53)
[2022-07-03] MEDS: DIMETHICONE 2% OINTMENT(VANICREAM) 70GM TUBE TOP SCH ×2 (09:53→19:54)
[2022-07-03] MEDS: OLANZapine 5 MG TAB PO SCH ×2 (09:53→19:53)
[2022-07-03] MEDS: ACETAMINOPHEN TAB 650MG DOSE (2X325MG) PO PRN ×2 (09:53→19:53)
[2022-07-03] MEDS: SENOKOT S TAB PO SCH ×2 (09:53→19:53)
[2022-07-03] MEDS: RAMELTEON 8 MG TAB (ROZEREM) PO SCH (19:53)
[2022-07-04 06:49] VITALS: BP 103/65
[2022-07-04] MEDS: OLANZapine 5 MG TAB PO SCH ×2 (09:21→19:44)
[2022-07-04] MEDS: SENOKOT S TAB PO SCH ×2 (09:21→19:45)
[2022-07-04] MEDS: DIMETHICONE 2% OINTMENT(VANICREAM) 70GM TUBE TOP SCH ×2 (09:22→19:45)
[2022-07-04] MEDS: ENOXAPARIN 40MG/0.4ML SYRINGE (J1650 PER 10MG) SC SCH (09:22)
[2022-07-04] MEDS: MIRALAX *UNIT DOSE* 17GM PACKET PO PRN (19:44)
[2022-07-04] MEDS: RAMELTEON 8 MG TAB (ROZEREM) PO SCH (19:44)
[2022-07-04] MEDS: ACETAMINOPHEN TAB 650MG DOSE (2X325MG) PO PRN (19:45)
[2022-07-05 06:14] VITALS: BP 128/68
[2022-07-05] MEDS: OLANZapine 5 MG TAB PO SCH ×2 (10:00→21:35)
[2022-07-05] MEDS: ACETAMINOPHEN TAB 650MG DOSE (2X325MG) PO PRN ×2 (10:00→21:35)
[2022-07-05] MEDS: ENOXAPARIN 40MG/0.4ML SYRINGE (J1650 PER 10MG) SC SCH (10:00)
[2022-07-05] MEDS: SENOKOT S TAB PO SCH ×2 (10:00→21:35)
[2022-07-05] MEDS: DIMETHICONE 2% OINTMENT(VANICREAM) 70GM TUBE TOP SCH ×2 (10:01→21:36)
[2022-07-05] MEDS: RAMELTEON 8 MG TAB (ROZEREM) PO SCH (21:35)
[2022-07-05] MEDS: MOM 30ML SUSPENSION UDC PO PRN (21:35)
[2022-07-06 06:00] VITALS: BP 133/75
[2022-07-06] MEDS: ACETAMINOPHEN TAB 650MG DOSE (2X325MG) PO PRN (09:14)
[2022-07-06] MEDS: ENOXAPARIN 40MG/0.4ML SYRINGE (J1650 PER 10MG) SC SCH (09:14)
[2022-07-06] MEDS: MIRALAX *UNIT DOSE* 17GM PACKET PO PRN ×2 (09:14→22:05)
[2022-07-06] MEDS: DIMETHICONE 2% OINTMENT(VANICREAM) 70GM TUBE TOP SCH ×2 (09:15→22:05)
[2022-07-06] MEDS: OLANZapine 5 MG TAB PO SCH ×2 (09:15→22:05)
[2022-07-06] MEDS: SENOKOT S TAB PO SCH ×2 (09:15→22:05)
[2022-07-06] MEDS: RAMELTEON 8 MG TAB (ROZEREM) PO SCH (22:04)
[2022-07-06] MEDS: MOM 30ML SUSPENSION UDC PO PRN (22:05)
[2022-07-07 06:30] VITALS: BP 134/75
[2022-07-07] MEDS: ACETAMINOPHEN TAB 650MG DOSE (2X325MG) PO PRN ×3 (08:47→20:53)
[2022-07-07] MEDS: SENOKOT S TAB PO SCH ×2 (08:48→20:53)
[2022-07-07] MEDS: DIMETHICONE 2% OINTMENT(VANICREAM) 70GM TUBE TOP SCH ×2 (08:48→20:53)
[2022-07-07] MEDS: OLANZapine 5 MG TAB PO SCH ×2 (08:48→20:53)
[2022-07-07] MEDS: ENOXAPARIN 40MG/0.4ML SYRINGE (J1650 PER 10MG) SC SCH (08:48)
[2022-07-07] MEDS: RAMELTEON 8 MG TAB (ROZEREM) PO SCH (20:53)
[2022-07-08 06:00] VITALS: BP 144/67
[2022-07-08] MEDS: ENOXAPARIN 40MG/0.4ML SYRINGE (J1650 PER 10MG) SC SCH (09:17)
[2022-07-08] MEDS: DIMETHICONE 2% OINTMENT(VANICREAM) 70GM TUBE TOP SCH ×2 (09:17→19:58)
[2022-07-08] MEDS: SENOKOT S TAB PO SCH ×2 (09:18→19:56)
[2022-07-08] MEDS: OLANZapine 5 MG TAB PO SCH ×2 (09:18→19:57)
[2022-07-08] MEDS: ACETAMINOPHEN TAB 650MG DOSE (2X325MG) PO PRN ×2 (09:18→19:57)
[2022-07-08] MEDS: RAMELTEON 8 MG TAB (ROZEREM) PO SCH (19:56)
[2022-07-09 06:00] VITALS: BP 141/66
[2022-07-09] MEDS: SENOKOT S TAB PO SCH ×2 (08:30→20:01)
[2022-07-09] MEDS: DIMETHICONE 2% OINTMENT(VANICREAM) 70GM TUBE TOP SCH ×2 (08:30→20:02)
[2022-07-09] MEDS: ENOXAPARIN 40MG/0.4ML SYRINGE (J1650 PER 10MG) SC SCH (08:30)
[2022-07-09] MEDS: OLANZapine 5 MG TAB PO SCH ×2 (08:30→20:01)
[2022-07-09] MEDS: ACETAMINOPHEN TAB 650MG DOSE (2X325MG) PO PRN (20:01)
[2022-07-09] MEDS: RAMELTEON 8 MG TAB (ROZEREM) PO SCH (20:01)
[2022-07-10 06:23] VITALS: BP 139/66
[2022-07-10] MEDS: SENOKOT S TAB PO SCH ×2 (09:59→21:03)
[2022-07-10] MEDS: OLANZapine 5 MG TAB PO SCH ×2 (09:59→21:03)
[2022-07-10] MEDS: DIMETHICONE 2% OINTMENT(VANICREAM) 70GM TUBE TOP SCH ×2 (09:59→21:04)
[2022-07-10] MEDS: ACETAMINOPHEN TAB 650MG DOSE (2X325MG) PO PRN ×2 (10:00→21:04)
[2022-07-10] MEDS: ENOXAPARIN 40MG/0.4ML SYRINGE (J1650 PER 10MG) SC SCH (10:00)
[2022-07-10] MEDS: RAMELTEON 8 MG TAB (ROZEREM) PO SCH (21:03)
[2022-07-11 06:00] VITALS: BP 153/87
[2022-07-11] MEDS: DIMETHICONE 2% OINTMENT(VANICREAM) 70GM TUBE TOP SCH ×2 (09:08→21:10)
[2022-07-11] MEDS: ENOXAPARIN 40MG/0.4ML SYRINGE (J1650 PER 10MG) SC SCH (09:08)
[2022-07-11] MEDS: OLANZapine 5 MG TAB PO SCH ×2 (09:08→21:08)
[2022-07-11] MEDS: SENOKOT S TAB PO SCH ×2 (09:08→21:09)
[2022-07-11] MEDS: ACETAMINOPHEN TAB 650MG DOSE (2X325MG) PO PRN (21:09)
[2022-07-11] MEDS: RAMELTEON 8 MG TAB (ROZEREM) PO SCH (21:09)
[2022-07-12 06:00] VITALS: BP 138/70
[2022-07-12] MEDS: SENOKOT S TAB PO SCH ×2 (09:21→21:32)
[2022-07-12] MEDS: OLANZapine 5 MG TAB PO SCH ×2 (09:21→21:32)
[2022-07-12] MEDS: DIMETHICONE 2% OINTMENT(VANICREAM) 70GM TUBE TOP SCH ×2 (09:22→21:32)
[2022-07-12] MEDS: ENOXAPARIN 40MG/0.4ML SYRINGE (J1650 PER 10MG) SC SCH (09:22)
[2022-07-12] MEDS: RAMELTEON 8 MG TAB (ROZEREM) PO SCH (21:32)
[2022-07-12] MEDS: ACETAMINOPHEN TAB 650MG DOSE (2X325MG) PO PRN (21:32)
[2022-07-13 06:00] VITALS: BP 110/58
[2022-07-13] MEDS: OLANZapine 5 MG TAB PO SCH ×2 (08:43→19:57)
[2022-07-13] MEDS: SENOKOT S TAB PO SCH ×2 (08:43→19:57)
[2022-07-13] MEDS: DIMETHICONE 2% OINTMENT(VANICREAM) 70GM TUBE TOP SCH ×2 (08:44→19:57)
[2022-07-13] MEDS: ENOXAPARIN 40MG/0.4ML SYRINGE (J1650 PER 10MG) SC SCH (08:44)
[2022-07-13] MEDS: RAMELTEON 8 MG TAB (ROZEREM) PO SCH (19:56)
[2022-07-13] MEDS: ACETAMINOPHEN TAB 650MG DOSE (2X325MG) PO PRN (19:56)
[2022-07-14 02:00] VITALS: BP 114/78
[2022-07-14] MEDS: SENOKOT S TAB PO SCH ×2 (08:32→21:26)
[2022-07-14] MEDS: ENOXAPARIN 40MG/0.4ML SYRINGE (J1650 PER 10MG) SC SCH (08:32)
[2022-07-14] MEDS: ACETAMINOPHEN TAB 650MG DOSE (2X325MG) PO PRN (08:32)
[2022-07-14] MEDS: OLANZapine 5 MG TAB PO SCH ×2 (08:32→21:26)
[2022-07-14] MEDS: DIMETHICONE 2% OINTMENT(VANICREAM) 70GM TUBE TOP SCH ×2 (08:33→21:27)
[2022-07-14] MEDS: RAMELTEON 8 MG TAB (ROZEREM) PO SCH (21:25)
[2022-07-15 06:00] VITALS: BP 139/70
[2022-07-15] MEDS: SENOKOT S TAB PO SCH ×2 (08:39→20:40)
[2022-07-15] MEDS: OLANZapine 5 MG TAB PO SCH ×2 (08:39→20:40)
[2022-07-15] MEDS: DIMETHICONE 2% OINTMENT(VANICREAM) 70GM TUBE TOP SCH ×2 (08:40→20:41)
[2022-07-15] MEDS: ENOXAPARIN 40MG/0.4ML SYRINGE (J1650 PER 10MG) SC SCH (08:40)
[2022-07-15] MEDS: RAMELTEON 8 MG TAB (ROZEREM) PO SCH (20:40)
[2022-07-16] MEDS: SENOKOT S TAB PO SCH ×2 (09:44→21:58)
[2022-07-16] MEDS: ENOXAPARIN 40MG/0.4ML SYRINGE (J1650 PER 10MG) SC SCH (09:44)
[2022-07-16] MEDS: OLANZapine 5 MG TAB PO SCH ×2 (09:44→21:58)
[2022-07-16] MEDS: DIMETHICONE 2% OINTMENT(VANICREAM) 70GM TUBE TOP SCH ×2 (09:45→21:58)
[2022-07-16] MEDS: RAMELTEON 8 MG TAB (ROZEREM) PO SCH (21:57)
[2022-07-17 06:00] VITALS: BP 118/62
[2022-07-17] MEDS: DIMETHICONE 2% OINTMENT(VANICREAM) 70GM TUBE TOP SCH ×2 (09:00→20:23)
[2022-07-17] MEDS: ENOXAPARIN 40MG/0.4ML SYRINGE (J1650 PER 10MG) SC SCH (10:00)
[2022-07-17] MEDS: OLANZapine 5 MG TAB PO SCH ×2 (10:00→20:23)
[2022-07-17] MEDS: SENOKOT S TAB PO SCH ×2 (10:01→20:23)
[2022-07-17] MEDS: RAMELTEON 8 MG TAB (ROZEREM) PO SCH (20:23)
[2022-07-18 06:00] VITALS: BP 122/63
[2022-07-18] MEDS: OLANZapine 5 MG TAB PO SCH ×2 (13:35→20:05)
[2022-07-18] MEDS: SENOKOT S TAB PO SCH ×2 (13:36→20:05)
[2022-07-18] MEDS: ENOXAPARIN 40MG/0.4ML SYRINGE (J1650 PER 10MG) SC SCH ×2 (13:37→13:58)
[2022-07-18] MEDS: DIMETHICONE 2% OINTMENT(VANICREAM) 70GM TUBE TOP SCH ×2 (13:37→20:09)
[2022-07-18] MEDS: RAMELTEON 8 MG TAB (ROZEREM) PO SCH (20:05)
[2022-07-18] MEDS: ACETAMINOPHEN TAB 650MG DOSE (2X325MG) PO PRN (20:08)
[2022-07-19 06:28] VITALS: BP 117/74
[2022-07-19] MEDS: OLANZapine 5 MG TAB PO SCH ×2 (09:40→20:33)
[2022-07-19] MEDS: ENOXAPARIN 40MG/0.4ML SYRINGE (J1650 PER 10MG) SC SCH (09:40)
[2022-07-19] MEDS: DIMETHICONE 2% OINTMENT(VANICREAM) 70GM TUBE TOP SCH ×2 (09:40→20:33)
[2022-07-19] MEDS: SENOKOT S TAB PO SCH ×2 (09:40→20:32)
[2022-07-19] MEDS: ACETAMINOPHEN TAB 650MG DOSE (2X325MG) PO PRN (20:32)
[2022-07-19] MEDS: RAMELTEON 8 MG TAB (ROZEREM) PO SCH (20:32)
[2022-07-20 06:20] VITALS: BP 122/73
[2022-07-20] MEDS: DIMETHICONE 2% OINTMENT(VANICREAM) 70GM TUBE TOP SCH ×2 (09:33→20:46)
[2022-07-20] MEDS: SENOKOT S TAB PO SCH ×2 (09:33→20:46)
[2022-07-20] MEDS: OLANZapine 5 MG TAB PO SCH ×2 (09:33→20:46)
[2022-07-20] MEDS: ENOXAPARIN 40MG/0.4ML SYRINGE (J1650 PER 10MG) SC SCH (09:33)
[2022-07-20] MEDS: ACETAMINOPHEN TAB 650MG DOSE (2X325MG) PO PRN (20:46)
[2022-07-20] MEDS: RAMELTEON 8 MG TAB (ROZEREM) PO SCH (20:46)
[2022-07-21 06:32] VITALS: BP 128/70
[2022-07-21] MEDS: SENOKOT S TAB PO SCH ×2 (09:54→20:28)
[2022-07-21] MEDS: OLANZapine 5 MG TAB PO SCH ×2 (09:54→20:28)
[2022-07-21] MEDS: DIMETHICONE 2% OINTMENT(VANICREAM) 70GM TUBE TOP SCH ×2 (09:54→20:28)
[2022-07-21] MEDS: ENOXAPARIN 40MG/0.4ML SYRINGE (J1650 PER 10MG) SC SCH (09:54)
[2022-07-21] MEDS: ACETAMINOPHEN TAB 650MG DOSE (2X325MG) PO PRN ×2 (10:05→20:29)
[2022-07-21] MEDS: RAMELTEON 8 MG TAB (ROZEREM) PO SCH (20:27)
[2022-07-22 05:33] VITALS: BP 124/73
[2022-07-22] MEDS ORDERED: OLANZapine 2.5MG TABLET PO SCH (09:00)
[2022-07-22] MEDS: SENOKOT S TAB PO SCH ×2 (09:06→19:15)
[2022-07-22] MEDS: OLANZapine 5 MG TAB PO SCH (09:06)
[2022-07-22] MEDS: DIMETHICONE 2% OINTMENT(VANICREAM) 70GM TUBE TOP SCH ×2 (09:07→20:04)
[2022-07-22] MEDS: ENOXAPARIN 40MG/0.4ML SYRINGE (J1650 PER 10MG) SC SCH (09:07)
[2022-07-22] MEDS: ACETAMINOPHEN TAB 650MG DOSE (2X325MG) PO PRN (20:03)
[2022-07-22] MEDS: OLANZapine 2.5MG TABLET PO SCH (20:03)
[2022-07-22] MEDS: RAMELTEON 8 MG TAB (ROZEREM) PO SCH (20:03)
[2022-07-22] MEDS ORDERED: OLANZapine 5 MG TAB PO SCH (21:00)
[2022-07-23 06:05] VITALS: BP 127/64
[2022-07-23] MEDS: OLANZapine 5 MG TAB PO SCH (09:46)
[2022-07-23] MEDS: ENOXAPARIN 40MG/0.4ML SYRINGE (J1650 PER 10MG) SC SCH (09:46)
[2022-07-23] MEDS: SENOKOT S TAB PO SCH ×2 (09:46→19:24)
[2022-07-23] MEDS: DIMETHICONE 2% OINTMENT(VANICREAM) 70GM TUBE TOP SCH ×2 (09:46→19:25)
[2022-07-23] MEDS: ACETAMINOPHEN TAB 650MG DOSE (2X325MG) PO PRN (19:24)
[2022-07-23] MEDS: RAMELTEON 8 MG TAB (ROZEREM) PO SCH (19:24)
[2022-07-23] MEDS: OLANZapine 2.5MG TABLET PO SCH (19:24)
[2022-07-24 05:55] VITALS: BP 128/69
[2022-07-24] MEDS: OLANZapine 5 MG TAB PO SCH (07:49)
[2022-07-24] MEDS: SENOKOT S TAB PO SCH ×2 (07:49→20:11)
[2022-07-24] MEDS: DIMETHICONE 2% OINTMENT(VANICREAM) 70GM TUBE TOP SCH ×2 (07:50→20:12)
[2022-07-24] MEDS: ENOXAPARIN 40MG/0.4ML SYRINGE (J1650 PER 10MG) SC SCH (07:50)
[2022-07-24] MEDS: OLANZapine 2.5MG TABLET PO SCH (20:11)
[2022-07-24] MEDS: RAMELTEON 8 MG TAB (ROZEREM) PO SCH (20:11)
[2022-07-24] MEDS: ACETAMINOPHEN TAB 650MG DOSE (2X325MG) PO PRN (20:11)
[2022-07-25 06:02] VITALS: BP 139/72
[2022-07-25] MEDS: OLANZapine 5 MG TAB PO SCH (09:28)
[2022-07-25] MEDS: ENOXAPARIN 40MG/0.4ML SYRINGE (J1650 PER 10MG) SC SCH (09:28)
[2022-07-25] MEDS: SENOKOT S TAB PO SCH ×2 (09:28→19:41)
[2022-07-25] MEDS: MOM 30ML SUSPENSION UDC PO PRN (09:28)
[2022-07-25] MEDS: DIMETHICONE 2% OINTMENT(VANICREAM) 70GM TUBE TOP SCH ×2 (09:29→19:42)
[2022-07-25] MEDS: RAMELTEON 8 MG TAB (ROZEREM) PO SCH (19:41)
[2022-07-25] MEDS: ACETAMINOPHEN TAB 650MG DOSE (2X325MG) PO PRN (19:41)
[2022-07-25] MEDS: OLANZapine 2.5MG TABLET PO SCH (19:42)
[2022-07-26 04:01] VITALS: BP 132/70
[2022-07-26] MEDS: OLANZapine 5 MG TAB PO SCH (10:07)
[2022-07-26] MEDS: SENOKOT S TAB PO SCH ×2 (10:07→19:47)
[2022-07-26] MEDS: ACETAMINOPHEN TAB 650MG DOSE (2X325MG) PO PRN ×2 (10:08→19:48)
[2022-07-26] MEDS: ENOXAPARIN 40MG/0.4ML SYRINGE (J1650 PER 10MG) SC SCH (10:08)
[2022-07-26] MEDS: DIMETHICONE 2% OINTMENT(VANICREAM) 70GM TUBE TOP SCH ×2 (10:09→20:31)
[2022-07-26] MEDS: OLANZapine 2.5MG TABLET PO SCH (19:47)
[2022-07-26] MEDS: RAMELTEON 8 MG TAB (ROZEREM) PO SCH (19:47)
[2022-07-27 02:31] VITALS: BP 114/65
[2022-07-27] MEDS: OLANZapine 5 MG TAB PO SCH (09:11)
[2022-07-27] MEDS: ENOXAPARIN 40MG/0.4ML SYRINGE (J1650 PER 10MG) SC SCH (09:12)
[2022-07-27] MEDS: DIMETHICONE 2% OINTMENT(VANICREAM) 70GM TUBE TOP SCH ×2 (09:12→20:45)
[2022-07-27] MEDS: SENOKOT S TAB PO SCH ×2 (09:12→20:45)
[2022-07-27] MEDS: ACETAMINOPHEN TAB 650MG DOSE (2X325MG) PO PRN (20:45)
[2022-07-27] MEDS: RAMELTEON 8 MG TAB (ROZEREM) PO SCH (20:45)
[2022-07-27] MEDS: OLANZapine 2.5MG TABLET PO SCH (20:45)
[2022-07-28 06:00] VITALS: BP 125/72
[2022-07-28] MEDS: SENOKOT S TAB PO SCH ×2 (09:54→21:19)
[2022-07-28] MEDS: OLANZapine 5 MG TAB PO SCH (09:54)
[2022-07-28] MEDS: ACETAMINOPHEN TAB 650MG DOSE (2X325MG) PO PRN ×2 (09:55→21:19)
[2022-07-28] MEDS: ENOXAPARIN 40MG/0.4ML SYRINGE (J1650 PER 10MG) SC SCH (09:55)
[2022-07-28] MEDS: DIMETHICONE 2% OINTMENT(VANICREAM) 70GM TUBE TOP SCH ×2 (09:56→21:20)
[2022-07-28] MEDS: OLANZapine 2.5MG TABLET PO SCH (21:19)
[2022-07-28] MEDS: RAMELTEON 8 MG TAB (ROZEREM) PO SCH (21:19)
[2022-07-29] MEDS: ENOXAPARIN 40MG/0.4ML SYRINGE (J1650 PER 10MG) SC SCH (09:57)
[2022-07-29] MEDS: SENOKOT S TAB PO SCH ×2 (09:57→21:19)
[2022-07-29] MEDS: OLANZapine 5 MG TAB PO SCH (09:57)
[2022-07-29] MEDS: DIMETHICONE 2% OINTMENT(VANICREAM) 70GM TUBE TOP SCH ×2 (10:07→21:22)
[2022-07-29] MEDS: OLANZapine 2.5MG TABLET PO SCH (21:20)
[2022-07-29] MEDS: RAMELTEON 8 MG TAB (ROZEREM) PO SCH (21:20)
[2022-07-29] MEDS: ACETAMINOPHEN TAB 650MG DOSE (2X325MG) PO PRN (21:21)
[2022-07-30] MEDS: SENOKOT S TAB PO SCH ×2 (09:49→20:32)
[2022-07-30] MEDS: ENOXAPARIN 40MG/0.4ML SYRINGE (J1650 PER 10MG) SC SCH (09:49)
[2022-07-30] MEDS: OLANZapine 5 MG TAB PO SCH (09:49)
[2022-07-30] MEDS: DIMETHICONE 2% OINTMENT(VANICREAM) 70GM TUBE TOP SCH ×2 (09:50→20:33)
[2022-07-30] MEDS: ACETAMINOPHEN TAB 650MG DOSE (2X325MG) PO PRN (20:32)
[2022-07-30] MEDS: RAMELTEON 8 MG TAB (ROZEREM) PO SCH (20:32)
[2022-07-30] MEDS: OLANZapine 2.5MG TABLET PO SCH (20:33)
[2022-07-31 06:00] VITALS: BP 129/73
[2022-07-31] MEDS: ACETAMINOPHEN TAB 650MG DOSE (2X325MG) PO PRN ×2 (10:18→19:59)
[2022-07-31] MEDS: SENOKOT S TAB PO SCH ×2 (10:18→19:58)
[2022-07-31] MEDS: ENOXAPARIN 40MG/0.4ML SYRINGE (J1650 PER 10MG) SC SCH (10:18)
[2022-07-31] MEDS: OLANZapine 5 MG TAB PO SCH (10:18)
[2022-07-31] MEDS: DIMETHICONE 2% OINTMENT(VANICREAM) 70GM TUBE TOP SCH ×2 (10:19→19:59)
[2022-07-31] MEDS: OLANZapine 2.5MG TABLET PO SCH (19:59)
[2022-07-31] MEDS: RAMELTEON 8 MG TAB (ROZEREM) PO SCH (19:59)
[2022-08-01 05:27] VITALS: BP 130/67
[2022-08-01] MEDS: SENOKOT S TAB PO SCH ×2 (09:00→20:09)
[2022-08-01] MEDS: OLANZapine 5 MG TAB PO SCH (10:17)
[2022-08-01] MEDS: ACETAMINOPHEN TAB 650MG DOSE (2X325MG) PO PRN ×2 (10:18→20:09)
[2022-08-01] MEDS: ENOXAPARIN 40MG/0.4ML SYRINGE (J1650 PER 10MG) SC SCH (10:18)
[2022-08-01] MEDS: DIMETHICONE 2% OINTMENT(VANICREAM) 70GM TUBE TOP SCH ×2 (10:19→20:13)
[2022-08-01] MEDS: RAMELTEON 8 MG TAB (ROZEREM) PO SCH (20:08)
[2022-08-01] MEDS: OLANZapine 2.5MG TABLET PO SCH (20:12)
[2022-08-02 04:27] VITALS: BP 130/66
[2022-08-02] MEDS: DIMETHICONE 2% OINTMENT(VANICREAM) 70GM TUBE TOP SCH ×2 (08:27→20:44)
[2022-08-02] MEDS: ENOXAPARIN 40MG/0.4ML SYRINGE (J1650 PER 10MG) SC SCH (08:27)
[2022-08-02] MEDS: SENOKOT S TAB PO SCH ×2 (08:27→20:43)
[2022-08-02] MEDS: OLANZapine 5 MG TAB PO SCH (08:27)
[2022-08-02] MEDS: RAMELTEON 8 MG TAB (ROZEREM) PO SCH (20:43)
[2022-08-02] MEDS: OLANZapine 2.5MG TABLET PO SCH (20:43)
[2022-08-02] MEDS: ACETAMINOPHEN TAB 650MG DOSE (2X325MG) PO PRN (20:43)
[2022-08-03 05:58] VITALS: BP 120/74
[2022-08-03] MEDS: OLANZapine 5 MG TAB PO SCH (09:36)
[2022-08-03] MEDS: ACETAMINOPHEN TAB 650MG DOSE (2X325MG) PO PRN ×2 (09:37→21:48)
[2022-08-03] MEDS: SENOKOT S TAB PO SCH ×2 (09:37→21:47)
[2022-08-03] MEDS: DIMETHICONE 2% OINTMENT(VANICREAM) 70GM TUBE TOP SCH ×2 (09:37→21:48)
[2022-08-03] MEDS: ENOXAPARIN 40MG/0.4ML SYRINGE (J1650 PER 10MG) SC SCH (09:37)
[2022-08-03] MEDS: OLANZapine 2.5MG TABLET PO SCH (21:47)
[2022-08-03] MEDS: RAMELTEON 8 MG TAB (ROZEREM) PO SCH (21:47)
[2022-08-04] MEDS: SENOKOT S TAB PO SCH ×2 (09:51→20:14)
[2022-08-04] MEDS: ENOXAPARIN 40MG/0.4ML SYRINGE (J1650 PER 10MG) SC SCH (09:51)
[2022-08-04] MEDS: OLANZapine 5 MG TAB PO SCH (09:51)
[2022-08-04] MEDS: DIMETHICONE 2% OINTMENT(VANICREAM) 70GM TUBE TOP SCH ×2 (09:52→20:16)
[2022-08-04 20:06] VITALS: BP 145/70
[2022-08-04] MEDS: RAMELTEON 8 MG TAB (ROZEREM) PO SCH (20:14)
[2022-08-04] MEDS: OLANZapine 2.5MG TABLET PO SCH (20:15)
[2022-08-04] MEDS: ACETAMINOPHEN TAB 650MG DOSE (2X325MG) PO PRN (20:15)
[2022-08-05 02:00] VITALS: BP 147/72
[2022-08-05] MEDS: OLANZapine 5 MG TAB PO SCH (08:53)
[2022-08-05] MEDS: SENOKOT S TAB PO SCH ×2 (08:53→20:01)
[2022-08-05] MEDS: DIMETHICONE 2% OINTMENT(VANICREAM) 70GM TUBE TOP SCH ×2 (08:54→20:02)
[2022-08-05] MEDS: ENOXAPARIN 40MG/0.4ML SYRINGE (J1650 PER 10MG) SC SCH (08:54)
[2022-08-05] MEDS: RAMELTEON 8 MG TAB (ROZEREM) PO SCH (20:01)
[2022-08-05] MEDS: OLANZapine 2.5MG TABLET PO SCH (20:01)
[2022-08-05] MEDS: ACETAMINOPHEN TAB 650MG DOSE (2X325MG) PO PRN (20:02)
[2022-08-06 06:00] VITALS: BP 141/73
[2022-08-06] MEDS: SENOKOT S TAB PO SCH ×2 (09:01→22:07)
[2022-08-06] MEDS: ENOXAPARIN 40MG/0.4ML SYRINGE (J1650 PER 10MG) SC SCH (09:01)
[2022-08-06] MEDS: OLANZapine 5 MG TAB PO SCH (09:01)
[2022-08-06] MEDS: DIMETHICONE 2% OINTMENT(VANICREAM) 70GM TUBE TOP SCH ×2 (09:02→22:08)
[2022-08-06] MEDS: OLANZapine 2.5MG TABLET PO SCH (22:06)
[2022-08-06] MEDS: RAMELTEON 8 MG TAB (ROZEREM) PO SCH (22:07)
[2022-08-07 06:25] VITALS: BP 114/59
[2022-08-07] MEDS: ENOXAPARIN 40MG/0.4ML SYRINGE (J1650 PER 10MG) SC SCH (07:58)
[2022-08-07] MEDS: SENOKOT S TAB PO SCH ×2 (07:58→20:14)
[2022-08-07] MEDS: DIMETHICONE 2% OINTMENT(VANICREAM) 70GM TUBE TOP SCH ×2 (07:59→20:15)
[2022-08-07] MEDS: OLANZapine 5 MG TAB PO SCH (07:59)
[2022-08-07] MEDS: RAMELTEON 8 MG TAB (ROZEREM) PO SCH (20:13)
[2022-08-07] MEDS: OLANZapine 2.5MG TABLET PO SCH (20:14)
[2022-08-08 06:56] VITALS: BP 155/83
[2022-08-08] MEDS: ACETAMINOPHEN TAB 650MG DOSE (2X325MG) PO PRN ×2 (10:34→20:13)
[2022-08-08] MEDS: SENOKOT S TAB PO SCH ×2 (10:34→20:13)
[2022-08-08] MEDS: ENOXAPARIN 40MG/0.4ML SYRINGE (J1650 PER 10MG) SC SCH (10:34)
[2022-08-08] MEDS: OLANZapine 5 MG TAB PO SCH (10:34)
[2022-08-08] MEDS: DIMETHICONE 2% OINTMENT(VANICREAM) 70GM TUBE TOP SCH ×2 (10:35→22:08)
[2022-08-08] MEDS: RAMELTEON 8 MG TAB (ROZEREM) PO SCH (20:13)
[2022-08-08] MEDS: OLANZapine 2.5MG TABLET PO SCH (20:13)
[2022-08-09 06:00] VITALS: BP 113/62
[2022-08-09] MEDS: SENOKOT S TAB PO SCH ×2 (09:32→19:39)
[2022-08-09] MEDS: ENOXAPARIN 40MG/0.4ML SYRINGE (J1650 PER 10MG) SC SCH (09:32)
[2022-08-09] MEDS: DIMETHICONE 2% OINTMENT(VANICREAM) 70GM TUBE TOP SCH ×2 (09:32→19:40)
[2022-08-09] MEDS: OLANZapine 5 MG TAB PO SCH (09:32)
[2022-08-09] MEDS: ACETAMINOPHEN TAB 650MG DOSE (2X325MG) PO PRN (19:39)
[2022-08-09] MEDS: RAMELTEON 8 MG TAB (ROZEREM) PO SCH (19:39)
[2022-08-09] MEDS: OLANZapine 2.5MG TABLET PO SCH (19:39)
[2022-08-09] MEDS ORDERED: OLANZapine 2.5MG TABLET PO ONE (20:00)
[2022-08-10 06:22] VITALS: BP 116/62
[2022-08-10] MEDS: DIMETHICONE 2% OINTMENT(VANICREAM) 70GM TUBE TOP SCH ×2 (09:41→19:54)
[2022-08-10] MEDS: OLANZapine 5 MG TAB PO SCH ×2 (09:41→19:54)
[2022-08-10] MEDS: ENOXAPARIN 40MG/0.4ML SYRINGE (J1650 PER 10MG) SC SCH (09:42)
[2022-08-10] MEDS: SENOKOT S TAB PO SCH ×2 (09:43→19:54)
[2022-08-10] MEDS: RAMELTEON 8 MG TAB (ROZEREM) PO SCH (19:54)
[2022-08-11 05:45] VITALS: BP 114/58
[2022-08-11] MEDS: SENOKOT S TAB PO SCH ×2 (08:59→22:22)
[2022-08-11] MEDS: OLANZapine 5 MG TAB PO SCH ×2 (08:59→22:22)
[2022-08-11] MEDS: ENOXAPARIN 40MG/0.4ML SYRINGE (J1650 PER 10MG) SC SCH (08:59)
[2022-08-11] MEDS: DIMETHICONE 2% OINTMENT(VANICREAM) 70GM TUBE TOP SCH ×2 (09:00→22:25)
[2022-08-11] MEDS: RAMELTEON 8 MG TAB (ROZEREM) PO SCH (22:23)
[2022-08-12 05:46] VITALS: BP 137/74
[2022-08-12] MEDS: SENOKOT S TAB PO SCH ×2 (09:45→21:42)
[2022-08-12] MEDS: OLANZapine 5 MG TAB PO SCH ×2 (09:45→21:39)
[2022-08-12] MEDS: ENOXAPARIN 40MG/0.4ML SYRINGE (J1650 PER 10MG) SC SCH (09:45)
[2022-08-12] MEDS: DIMETHICONE 2% OINTMENT(VANICREAM) 70GM TUBE TOP SCH ×2 (09:46→21:47)
[2022-08-12] MEDS: RAMELTEON 8 MG TAB (ROZEREM) PO SCH (21:42)
[2022-08-13 06:00] VITALS: BP 138/77
[2022-08-13] MEDS: OLANZapine 5 MG TAB PO SCH ×2 (09:16→19:43)
[2022-08-13] MEDS: SENOKOT S TAB PO SCH ×2 (09:17→19:43)
[2022-08-13] MEDS: ENOXAPARIN 40MG/0.4ML SYRINGE (J1650 PER 10MG) SC SCH (09:17)
[2022-08-13] MEDS: DIMETHICONE 2% OINTMENT(VANICREAM) 70GM TUBE TOP SCH ×2 (09:18→19:43)
[2022-08-13] MEDS ORDERED: BISACODYL 10MG SUPP PR ONE (15:00)
[2022-08-13] MEDS: MIRALAX *UNIT DOSE* 17GM PACKET PO PRN (19:42)
[2022-08-13] MEDS: ACETAMINOPHEN TAB 650MG DOSE (2X325MG) PO PRN (19:42)
[2022-08-13] MEDS: MOM 30ML SUSPENSION UDC PO PRN (19:42)
[2022-08-13] MEDS: RAMELTEON 8 MG TAB (ROZEREM) PO SCH (19:43)
[2022-08-14 06:00] VITALS: BP 139/69
[2022-08-14] MEDS: OLANZapine 5 MG TAB PO SCH ×2 (08:30→19:35)
[2022-08-14] MEDS: SENOKOT S TAB PO SCH ×2 (08:30→19:34)
[2022-08-14] MEDS: ENOXAPARIN 40MG/0.4ML SYRINGE (J1650 PER 10MG) SC SCH (08:30)
[2022-08-14] MEDS: DIMETHICONE 2% OINTMENT(VANICREAM) 70GM TUBE TOP SCH ×2 (08:30→19:35)
[2022-08-14] MEDS: MOM 30ML SUSPENSION UDC PO PRN (08:31)
[2022-08-14] MEDS: MIRALAX *UNIT DOSE* 17GM PACKET PO PRN (19:34)
[2022-08-14] MEDS: ACETAMINOPHEN TAB 650MG DOSE (2X325MG) PO PRN (19:35)
[2022-08-14] MEDS: RAMELTEON 8 MG TAB (ROZEREM) PO SCH (19:35)
[2022-08-15 06:00] VITALS: BP 139/42
[2022-08-15] MEDS: SENOKOT S TAB PO SCH ×2 (08:51→19:31)
[2022-08-15] MEDS: ENOXAPARIN 40MG/0.4ML SYRINGE (J1650 PER 10MG) SC SCH (08:52)
[2022-08-15] MEDS: DIMETHICONE 2% OINTMENT(VANICREAM) 70GM TUBE TOP SCH ×2 (08:52→19:32)
[2022-08-15] MEDS: OLANZapine 5 MG TAB PO SCH ×2 (08:52→19:32)
[2022-08-15] MEDS: ACETAMINOPHEN TAB 650MG DOSE (2X325MG) PO PRN ×2 (12:40→19:32)
[2022-08-15] MEDS: RAMELTEON 8 MG TAB (ROZEREM) PO SCH (19:31)
[2022-08-15] MEDS: MIRALAX *UNIT DOSE* 17GM PACKET PO PRN (19:31)
[2022-08-16 02:00] VITALS: BP 103/54
[2022-08-16] MEDS: SENOKOT S TAB PO SCH (10:13)
[2022-08-16] MEDS: OLANZapine 5 MG TAB PO SCH (10:13)
[2022-08-16] MEDS: ENOXAPARIN 40MG/0.4ML SYRINGE (J1650 PER 10MG) SC SCH (10:14)
[2022-08-16] MEDS: DIMETHICONE 2% OINTMENT(VANICREAM) 70GM TUBE TOP SCH (10:15)
[2022-08-16] MEDS ORDERED: SENN-52 PO (10:39)
[2022-08-16] MEDS ORDERED: OLAN1TAB16 PO (12:48)
== END 2022-08-16 13:55 | disposition home health service (06) | DRG 884 ==
LOC: EDBD 11:33 → M ED 11:33 → M ED INP 18:49 → M MS5PR 23:10
PROVIDERS: ADMIT Family Medicine; ATTEND Internal Medicine
DX: F03.90 Unspecified dementia, unspecified severity, without behavioral disturbance, psychotic disturbance, mood disturbance, and anxiety (principal); N39.0 Urinary tract infection, site not specified; R62.7 Adult failure to thrive; I10 Essential (primary) hypertension; Z79.899 Other long term (current) drug therapy; B96.29 Other Escherichia coli [E. coli] as the cause of diseases classified elsewhere; L98.9 Disorder of the skin and subcutaneous tissue, unspecified

== ENCOUNTER → 2022-08-02 | Outpatient (REF) | payer MEDICARE, OTHER ==
[~2022-08-02] MED LIST changes: +OLAN1TAB16 PO; +[UNRECOGNIZED DRUG - CODE] PO
== END ==
LOC: M SFHCDERM 14:11
PROVIDERS: ATTEND Nurse Practitioner Family
DX: C44.319 Basal cell carcinoma of skin of other parts of face (principal)

== ENCOUNTER → 2024-03-05 | Outpatient (REF) | payer MEDICARE, OTHER ==
[~2024-03-05] MED LIST changes: +SENN-52 PO
== END ==
LOC: M LAB REF 16:21
PROVIDERS: ATTEND Pediatrics
DX: R82.998 Other abnormal findings in urine (principal)

== ENCOUNTER → 2024-03-06 | Outpatient (CLI) | payer MEDICARE, OTHER ==
[2024-03-06 11:57] LABS: BASO % 0.4 % (0.0-1.0); EOS # 0.1 10^3/uL (0.0-0.5); EOS % 0.9 % (0.0-3.0); HEMATOCRIT 40.8 % (36.0-47.0); HEMOGLOBIN 13.7 g/dl (12.0-15.5); LYMPH # 1.1 10^3/uL (1.5-5.0); LYMPH % 15.3 % (24.0-44.0); MEAN CORPUSCULAR HEMOGLOBIN 32.6 pg (27.0-33.0); MEAN CORPUSCULAR HGB CONC 33.6 g/dl (32.0-36.5); MEAN CORPUSCULAR VOLUME 97.1 fl (80.0-96.0); MONO # 0.5 10^3/uL (0.0-0.8); MONO % 6.6 % (2.0-8.0); NEUTROPHILS # 5.4 10^3/uL (1.5-8.5); NEUTROPHILS % 76.7 % (36.0-66.0); PLATELET COUNT, AUTOMATED 237 10^3/uL (150-450)
[2024-03-06 12:19] LABS: ALBUMIN 3.3 G/DL (3.2-5.2); ALKALINE PHOSPHATASE 93 U/L (46-116); ALT/SGPT 12 U/L (7.0-40); AST/SGOT 15 U/L (<34); BILIRUBIN,TOTAL 0.3 MG/DL (0.3-1.2); BLOOD UREA NITROGEN 18 MG/DL (9-23); CALCIUM LEVEL 9.7 MG/DL (8.3-10.6); CARBON DIOXIDE LEVEL 28 MMOL/L (20-31); CHLORIDE LEVEL 109 MMOL/L (98-107); CREATININE FOR GFR 0.63 MG/DL (0.55-1.30); GLOMERULAR FILTRATION RATE > 60.0 (>32); GLUCOSE, FASTING 170 MG/DL (74-106); HEMOGLOBIN A1c 5.4 % (4.0-6.0); POTASSIUM SERUM 4.5 MMOL/L (3.5-5.1); SODIUM LEVEL 143 MMOL/L (136-145); TOTAL PROTEIN 6.7 G/DL (5.7-8.2)
== END ==
LOC: M LAB 10:31
PROVIDERS: ATTEND Pediatrics
DX: R82.998 Other abnormal findings in urine (principal); R73.01 Impaired fasting glucose